=== PATIENT | male | born 1925 | race Caucasian/White ===

== ENCOUNTER 2016-04-04 09:08 | Inpatient (IN) | payer OTHER, MEDICARE ==
[~2016-04-04] VITALS: Ht 177.8 cm; Wt 65.8 kg
[~2016-04-04 09:08] MED LIST: AGRYLIN0.5 MG PO; ASPIR 8181 MG PO; ATORVASTATIN CA40 MG PO; ATORVASTATIN CA80 MG PO; AVODART0.5 MG PO; BABY ASPIRIN CH81 MG PO; CIPRO500 M1 PO; CLOPIDOGREL75 MG PO; COUMADIN 2.5 M2.5 MG PO; COUMADIN 3 MG TA3 MG PO; EXELON1 EAC1 TOP; FELODIPINE10 MG PO; FERROUS SULFAT325 M3 PO; FLOMAX(MONOGRA0.4 MG PO; KEFLEX500 MG PO; LOPRESSOR 12.12.5 MG PO; LOPRESSOR 25MG25 MG PO; LOPRESSOR50 M1 PO; LOPRESSOR50 MG PO; NORVASC 5MG TAB5 MG PO; NORVASC5 M1 PO; PERCOCET 325 MG1 TA2 PO; PLAVIX 75MG TAB75 MG PO; TYLENOL WITH C1 EACH PO; ULTRAM(MONOGRAP50 MG PO; ZETIA10 MG PO
--- NOTE | 2016-04-04 09:12 | NUR ---
PT SHLOMO FROM HOME AFTER FOUND HIM ON THE FLOOR. PT ARRIVES OFFERS NO COMPLAINTS. PT INCONTINENT OF LARGE AMOUNT OF STOOL. [facility] CARE PROVIDED. PT HAS INDWELLING CATH THAT IS DRAINING GROSS HEMATURIA PER EMS VISITING NURSE TOLD THEM SHE CHANGED IT AND "MUST HAVE NICKED SOMETHING". PT OFFERS NO COMPLAINTS. ROM TO ALL LIMBS WITHOUT PAIN. PT IS A/O AT THIS TIME. PT APOLOGIZING FOR BEING INCONTINENT. VSS
--- NOTE | 2016-04-04 09:22 | ED GENERAL ADULT ---
History of Present Illness General Chief Complaint: Fall Stated Complaint: FALL Source: patient, old records, EMS Exam Limitations: dementia Vital Signs & Intake/Output Vital Signs & Intake/Output Vital Signs Date Time Temp Pulse Resp B/P Pulse O2 O2 Flow FiO2 Ox Delivery Rate 04/04 0813 93 04/04 911 99.1 90 18 142/75 93 Room Air Allergies Coded Allergies: NO KNOWN ALLERGIES (02/07/16) Reconcile Medications Amlodipine (Norvasc 5MG Tab) 5 MG TAB 1 TAB PO DAILY BP (Reported) ANAGRELIDE HCL (Anagrelide Hydrochloride) 0.5 MG CAP 1 CAP PO BID UNKNOWN ( Reported) Aspirin (Children's Aspirin) 81 MG TAB 1 TAB PO DAILY BLOOD THINNER Atorvastatin Calcium (Lipitor) 80 MG TAB 1 TAB PO DAILY CHOLESTEROL Dutasteride (Avodart) 0.5 MG CAP 0.5 MG PO DAILY BPH Ferrous Sulfate 325 MG TAB 1 TAB PO TID SUPPLEMENT (Reported) Metoprolol Tartrate (Lopressor) 50 MG TAB 1 TAB PO BID HEART (Reported) Rivastigmine (Exelon) 9.5 MG/24 HR PAT 1 PAT TOP DAILY DEMENTIA (Reported) Tamsulosin Hydrochloride (Flomax) 0.4 MG CAP 0.4 MG PO DAILY BPH Triage Note: PT BIBA FROM HOME AFTER FOUND HIM ON THE FLOOR. PT ARRIVES OFFERS NO COMPLAINTS. PT INCONTINENT OF LARGE AMOUNT OF STOOL. [facility] PROVIDED. PT HAS INDWELLING CATH THAT IS DRAINING GROSS HEMATURIA PER EMS VISITING NURSE TOLD THEM SHE CHANGED IT AND "MUST HAVE NICKED SOMETHING". PT OFFERS NO COMPLAINTS. ROM TO ALL LIMBS WITHOUT PAIN. PT IS A/O AT THIS TIME. PT APOLOGIZING FOR BEING INCONTINENT. VSS Triage Nurses Notes Reviewed? yes HPI: Patient has a history of dementia and is unable to provide any history of present illness. Patient was found on the floor by his this morning in the hallway leading towards the bathroom. Patient was incontinent of a large amount of stool. Patient has no current complaints however was sent in for evaluation. Patient denies any headache or blurry vision. Patient is moving all 4 extremities without difficulty. states that she saw him in bed at 6 AM so she knows that he was on the floor for a prolonged period time. Past History Travel History Traveled to [place] past 21 day No Medical History Any Pertinent Medical History? see below for history Neurological: dementia EENT: R ear deafness post-operatively Cardiovascular: hypertension, hyperlipidemia, mitral regurgitation Respiratory: NONE Gastrointestinal: NONE Hepatic: NONE Renal: benign prost hyperplasia, LEG BAG, PT UNSURE WHY Musculoskeletal: FEMORAL ARTHROPLASTY Psychiatric: NONE Endocrine: NONE Blood Disorders: NONE Cancer(s): ORAL CANCER INK PRINTER/Reproductive: NONE Other Medical Hx: Benign prostatic hypertrophy History of MRSA: No History of VRE: Yes History of CDIFF: No Pneumonia Vaccine: 12/13/13 Influenza Vaccine: 12/14/15 Surgical History Surgical History: coronary angioplasty/stent details not available Psychosocial History Who do you live with Spouse Services at Home Nursing What is your primary language Dominican Tobacco Use: Never used ETOH Use: denies use Illicit Drug Use: denies illicit drug use Family History Family History, If Any: FATHER ( around age 44 -- rectal CA). MOTHER (unknown heart condition). Hx Contributory? No Review of Systems Review of Systems Constitutional: Reports: see HPI. Physical Exam Physical Exam General Appearance: well developed/nourished, alert, awake, mild distress Head: atraumatic, normal appearance Eyes: Bilateral: PERRL, EOMI. Ears, Nose, Throat: normal pharynx, normal ENT inspection, hearing grossly normal Neck: normal inspection, supple, full range of motion, NO JVD Respiratory: normal breath sounds, chest non-tender, no respiratory distress, lungs clear Cardiovascular: regular rate/rhythm, normal peripheral pulses Gastrointestinal: normal bowel sounds, soft, non-tender, no organomegaly Back: normal inspection, normal range of motion Extremities: normal inspection, normal capillary refill, normal range of motion, no edema Neurologic/Psych: A&O X 1 Skin: intact, normal color, warm/dry Core Measures ACS in differential dx? Yes ASA ordered for poss ACS? Yes-ordered CVA/TIA Diagnosis: No Severe Sepsis Present: No Septic Shock Present: No Progress Differential Diagnoses I considered the following diagnoses in my evaluation of the patient: [ICH, cervical fracture, head injury, electrolyte abnormality, pneumonia, CHF] Plan of Care: Orders Procedure Date/time Status TROPONIN LEVEL 04/04 1700 Active EKG 04/04 1700 Active LACTIC ACID 04/04 1402 Active Patient Data 04/04 1130 Active Add-on Test (ER Only) 04/04 1124 Active Straight Cath 04/04 1102 Active BLOOD CULTURE 04/04 1102 Active URINALYSIS 04/04 1102 Active LACTIC ACID 04/04 1102 Active CREATINE PHOSPHOKINASE 04/04 1014 Complete Telemetry/Service Engine Repairer 04/04 1013 Active TROPONIN LEVEL 04/04 1013 Complete COMPREHENSIVE METABOLIC PANEL 04/04 1013 Complete CBC WITHOUT DIFFERENTIAL 04/04 1013 Complete B-TYPE NATRIURETIC PEP (BNP) 04/04 1013 Complete EKG 04/04 1013 Active Laboratory Tests 04/04/16 1120: Lactic Acid Pending 04/04/16 1014: Anion Gap 11, Estimated GFR > 60, BUN/Creatinine Ratio 21.1, Glucose 122 H, Calcium 9.5, Total Bilirubin 1.0, AST 29, ALT 31, Alkaline Phosphatase 121, Creatine Kinase 38 L, Troponin I 0.19 *H, Law-P-Zembkmeqlus Pept 55947 H, Total Protein 6.2 L, Albumin 3.9, Globulin 2.3, Albumin/Globulin Ratio 1.7, CBC w Diff MAN DIFF ORDERED, RBC 4.43 L, MCV 95.2 H, MCH 31.5 H, RDW 18.2 H, MPV 8.4, Gran % 96.9 H, Lymphocytes % 1.3 L, Monocytes % 1.5 L, Eosinophils % 0.3 , Basophils % 0 L, Absolute Granulocytes 30.0 H, Segmented Neutrophils 83 H, Band Neutrophils 10 H, Absolute Lymphocytes 0.4 L, Lymphocytes 2 L, Monocytes 5, Absolute Monocytes 0.5, Absolute Eosinophils 0.1, Absolute Basophils 0, Poikilocytosis 2+, Anisocytosis 2+, Ovalocytes 1+, PUBS MCHC 33.1 Microbiology 04/04 1120 BLOOD: Blood Culture - RECD 04/04 1102 BLOOD: Blood Culture - ORD Diagnostic Imaging: Viewed by Me: CT Scan. Discussed w/RAD: CT Scan. Radiology Impression: PATIENT: MARILYN PERRY PRESENT AGE: 89 PATIENT ACCOUNT NO: [id number] : [birth year] LOCATION: [facility] ORDERING PHYSICIAN: NOEMI PETTY MD SERVICE DATE: 04/04/16 EXAM TYPE: CAT - CT CERV SPINE WO IV CONTRAST; CT HEAD WO IV CONTRAST EXAMINATION: CT OF THE HEAD WITHOUT CONTRAST CT SCAN OF THE CERVICAL SPINE WITHOUT CONTRAST CLINICAL INFORMATION: Fall. Presumptive diagnosis of intracranial hemorrhage. Evaluate for cervical spine fracture.. COMPARISON: CT scan of the head dated 12/23/2014. TECHNIQUE: Contiguous axial imaging was performed from the skull base to vertex without intravenous administration of contrast. DLP: 900.99 mGy-cm. FINDINGS: CT SCAN OF THE HEAD: There is no evidence of acute intracranial hemorrhage or territorial infarction. No abnormal mass-effect or midline shift is seen. Liu to white matter differentiation is well preserved. No extra-axial fluid collections are identified. The ventricles and sulci are mildly enlarged, similar to the previous exam, consistent with age-related involutional changes. Prominent periventricular deep white matter low-attenuation is seen, consistent with ischemic small vessel disease. Calcification of the vertebrobasilar arteries and the carotid siphons are noted. The osseous structures and soft tissues are normal. Again seen is patchy opacification of some of the right mastoid air cells. The left mastoid air cells and visualized portions of the paranasal sinuses are well-aerated. The patient is status post bilateral ocular lens extractions and menstrual placements. CT SCAN OF THE CERVICAL SPINE: Normal alignment of the cervical spine is seen with no evidence of acute fracture or dislocation. The craniocervical junction and atlantoaxial articulations are maintained. No abnormal prevertebral soft tissue swelling is seen. There is moderate degenerative change present throughout the cervical spine, involving the atlantoaxial articulation and the C3-C4 through C6-C7 intervertebral disc spaces. Soft tissues including lung apices are unremarkable. IMPRESSION: 1. No acute intracranial pathology. 2. No acute cervical spine fracture. 3. Mild involutional changes in the brain with findings of ischemic small vessel disease in the periventricular deep white matter. Findings are unchanged from prior exam. 4. Partial opacification of right mastoid air cells. 5. Multilevel moderate degenerative changes in the cervical spine. DICTATED BY: MOUNA RIVAS MD DATE/TIME DICTATED:04/04/161003 C.O.D. BILLER:RONALDO DATE/ TIME TRANSCRIBED:04/04/161003 CONFIDENTIAL, DO NOT COPY WITHOUT APPROPRIATE AUTHORIZATION. <Electronically signed in Other Vendor System> SIGNED BY: MOUNA RIVAS MD 04/04/16 1022 CXR Impression: PATIENT: MARILYN PERRY PRESENT AGE: 89 PATIENT ACCOUNT NO: [id number] : [birth year] LOCATION: [facility] ORDERING PHYSICIAN: NOEMI PETTY MD SERVICE DATE: 04/04/16 EXAM TYPE: RAD - XRY- PORTABLE CHEST XRAY EXAMINATION: XR PORTABLE CHEST CLINICAL INFORMATION: Hypoxia. Fall. COMPARISON: Chest x-ray dated 12/22/2014, 11/16/2014. TECHNIQUE: AP semierect portable view of the chest was obtained. FINDINGS: Cardiac mediastinal silhouette normal. Calcification of aortic arch seen. Lungs bilaterally hyperinflated with coarsening of bronchovascular lung markings, similar to prior exam. Chronic linear opacities in the lung bases is seen, consistent with chronic subsegmental atelectasis or scarring. Bony structures unremarkable. IMPRESSION: Hyperinflated lungs with chronic bibasilar subsegmental atelectasis or scarring. No acute cardiopulmonary process seen. DICTATED BY: MOUNA RIVAS MD DATE/TIME DICTATED:04/04/161033 C.O.D. BILLER:RONALDO DATE/TIME TRANSCRIBED:04/04/161033 CONFIDENTIAL, DO NOT COPY WITHOUT APPROPRIATE AUTHORIZATION. <Electronically signed in Other Vendor System> SIGNED BY: MOUNA RIVAS MD 04/04/16 1044 Initial ED EKG: NSR, nonspecific ST T wave chg Prior EKG: unchanged Rhythm Strip: normal sinus rhythm Comments: Patient found to be hypoxic with a room air saturation of 86-88% with no history of hypoxia. Patient is not on oxygen at home. Departure Departure Disposition: STILL A PATIENT Condition: Stable Clinical Impression Primary Impression: Leukocytosis Secondary Impressions: Elevated troponin Referrals: DANIEL OSORIO MD (PCP/Family) Departure Forms: Customer Survey General Discharge Information Admission Note Spoke With: PADMINI METZGER MD Documentation of Exam: Documentation of any treatments & extenuating circumstances including Concerns Regarding Discharge (functional status, medication knowledge or non-compliance, living conditions, etc.) that warrant an admission rather than observation: [IV fluids, cardiology consult, follow-up cultures, telemetry monitoring,] Critical Care Note Critical Care Note Critical Care Time: mins: (45 MIN)
--- NOTE | 2016-04-04 09:29 | NUR ---
PT TO CT SCAN
--- NOTE | 2016-04-04 10:22 | CT SCAN REPORT ---
EXAMINATION: CT OF THE HEAD WITHOUT CONTRAST CT SCAN OF THE CERVICAL SPINE WITHOUT CONTRAST CLINICAL INFORMATION: Fall. Presumptive diagnosis of intracranial hemorrhage. Evaluate for cervical spine fracture.. COMPARISON: CT scan of the head dated 12/23/2014. TECHNIQUE: Contiguous axial imaging was performed from the skull base to vertex without intravenous administration of contrast. DLP: 900.99 mGy-cm. FINDINGS: CT SCAN OF THE HEAD: There is no evidence of acute intracranial hemorrhage or territorial infarction. No abnormal mass-effect or midline shift is seen. Liu to white matter differentiation is well preserved. No extra-axial fluid collections are identified. The ventricles and sulci are mildly enlarged, similar to the previous exam, consistent with age-related involutional changes. Prominent periventricular deep white matter low-attenuation is seen, consistent with ischemic small vessel disease. Calcification of the vertebrobasilar arteries and the carotid siphons are noted. The osseous structures and soft tissues are normal. Again seen is patchy opacification of some of the right mastoid air cells. The left mastoid air cells and visualized portions of the paranasal sinuses are well-aerated. The patient is status post bilateral ocular lens extractions and menstrual placements. CT SCAN OF THE CERVICAL SPINE: Normal alignment of the cervical spine is seen with no evidence of acute fracture or dislocation. The craniocervical junction and atlantoaxial articulations are maintained. No abnormal prevertebral soft tissue swelling is seen. There is moderate degenerative change present throughout the cervical spine, involving the atlantoaxial articulation and the C3-C4 through C6-C7 intervertebral disc spaces. Soft tissues including lung apices are unremarkable. IMPRESSION: 1. No acute intracranial pathology. 2. No acute cervical spine fracture. 3. Mild involutional changes in the brain with findings of ischemic small vessel disease in the periventricular deep white matter. Findings are unchanged from prior exam. 4. Partial opacification of right mastoid air cells. 5. Multilevel moderate degenerative changes in the cervical spine.
[2016-04-04 10:30] LABS: ABSOLUTE BASOPHIL COUNT 0 /CUMM (0.0-0.2); ABSOLUTE EOSINOPHIL COUNT 0.1 /CUMM (0.0-0.7); ABSOLUTE LYMPH COUNT 0.4 /CUMM (1.2-3.4); ABSOLUTE MONOCYTE COUNT 0.5 /CUMM (0.10-0.60); BASOPHIL % 0 % (0.0-2.0); EOSINOPHIL % 0.3 % (0-5); GRANULOCYTE % 96.9 % (42.2-75.2); HEMATOCRIT 42.2 % (42-52); MEAN CORPUSCULAR HGB 31.5 PG (27.0-31.0); MEAN CORPUSCULAR HGB CONC 33.1 G/DL (33.0-37.0); MEAN CORPUSCULAR VOLUME 95.2 FL (80.0-94.0); MEAN PLATELET VOLUME 8.4 FL (7.4-10.4); PLATELET COUNT 576 /CUMM (130-400); RBC DISTRIBUTION WIDTH 18.2 % (11.5-14.5); RED BLOOD CELL CT 4.43 /CUMM (4.70-6.10)
--- NOTE | 2016-04-04 10:44 | RADIOLOGY REPORT ---
EXAMINATION: XR PORTABLE CHEST CLINICAL INFORMATION: Hypoxia. Fall. COMPARISON: Chest x-ray dated 12/22/2014, 11/16/2014. TECHNIQUE: AP semierect portable view of the chest was obtained. FINDINGS: Cardiac mediastinal silhouette normal. Calcification of aortic arch seen. Lungs bilaterally hyperinflated with coarsening of bronchovascular lung markings, similar to prior exam. Chronic linear opacities in the lung bases is seen, consistent with chronic subsegmental atelectasis or scarring. Bony structures unremarkable. IMPRESSION: Hyperinflated lungs with chronic bibasilar subsegmental atelectasis or scarring. No acute cardiopulmonary process seen.
--- NOTE | 2016-04-04 10:49 | NUR ---
CRITICAL TEST RESULTS [id number] MARILYN PERRY 89 M TESTS AND RESULTS: WBC 31.0 Results received and read back by: NATALIE ULRICH Results received date and time: 04/04/16 1049 The following provider was notified of the results, and read the results back: LUIS PETTY Notified date and time: 04/04/16 at 1049
--- NOTE | 2016-04-04 10:59 | NUR ---
CRITICAL TEST RESULTS [id number] MARILYN PERRY 89 M TESTS AND RESULTS: TROPONIN 0.19 Results received and read back by: NATALIE ULRICH Results received date and time: 04/04/16 1059 The following provider was notified of the results, and read the results back: DR PETTY Notified date and time: 04/04/16 at 1052
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
--- NOTE | 2016-04-04 11:53 | NUR ---
PT LEG BAG FILLED WITH GROSS HEMATURIA PT BLADDER DISTENDED ABD PAINFULL TO PALPATE CARVALHO REMOVED LARGE AMOUNT OF BLOOD WITH CLOTS FROLLOWED CARVALHO REPLACED WITH COUDE CLOUDY YELLOW URINE 500ML IN BAG NO BLOOD NOTED. PT CONT. TO HAVE BLOOD COMING FROM THE TIP OF HIS PENIS MD MADE AWARE. URINE SPEC. SENT TO LAB
--- NOTE | 2016-04-04 12:38 | NUR ---
PT IS GOING TO ROOM 171
--- NOTE | 2016-04-04 13:09 | NUR ---
SPOUSE IN, TOOK PT'S BELONGING BACK HOME TO WASH
[2016-04-04 13:51] VITALS: BP 118/62
--- NOTE | 2016-04-04 14:00 | NUR ---
PATIENT ARRIVED ON UNIT VIA STRETCHER. PATIENT ALERT AND ORIENTATED X2. PLEASANTLY CONFUSED. VSS AND DOCUMENTED. PLACED ON TELE MONITOR. NSR. NO ECTOPY. DENIES CP. O2 VIA NC 2L. NO RESP ISSUES. NS AT 75CC STARTED. CARVALHO TO GRAVITY. SMALL AMOUNT OF TEA COLOR URINE NOTED IN DRAINAGE BAG. STEVE BLOOD AROUND MEATUS. PATIENT DENIES DISCOMFORT. ADMITTING DX POS TROPONIN/SYNCOPE. ORIENTATED TO ROOM AND CALL LIGHT. WILL FOLLOW PLAN OF CARE.
--- NOTE | 2016-04-04 14:29 | Cons- Cardiology ---
General Information and HPI Consulting Request Date of Consult: 04/04/16 Requested By: PADMINI METZGER MD Reason for Consult: Elevated troponin post mechanical fall Source of Information: old records Exam Limitations: dementia History of Present Illness: The patient is an 89-year-old male who is admitted to the hospital after being brought into the emergency room by ambulance after his found him on the floor at home. No functional history is available from the patient, however, he offers no obvious complaints. At the time of being found, he was noted to have been incontinent of a large moderate stool. He also has an indwelling catheter with evidence of gross hematuria noted. As far as I can tell, there was no evidence of any gross neurologic event. There was also no evidence of any chest discomfort, shortness of breath, or other issues from a cardiac standpoint at the time the patient was initially seen or in the emergency room. Allergies/Medications Allergies: Coded Allergies: NO KNOWN ALLERGIES (02/07/16) Home Med List: Amlodipine (Norvasc 5MG Tab) 5 MG TAB 1 TAB PO DAILY BP (Reported) ANAGRELIDE HCL (Anagrelide Hydrochloride) 0.5 MG CAP 1 CAP PO BID UNKNOWN ( Reported) Aspirin (Children's Aspirin) 81 MG TAB 1 TAB PO DAILY BLOOD THINNER Atorvastatin Calcium (Lipitor) 80 MG TAB 1 TAB PO DAILY CHOLESTEROL Dutasteride (Avodart) 0.5 MG CAP 0.5 MG PO DAILY BPH Ferrous Sulfate 325 MG TAB 1 TAB PO TID SUPPLEMENT (Reported) Metoprolol Tartrate (Lopressor) 50 MG TAB 1 TAB PO BID HEART (Reported) Rivastigmine (Exelon) 9.5 MG/24 HR PAT 1 PAT TOP DAILY DEMENTIA (Reported) Tamsulosin Hydrochloride (Flomax) 0.4 MG CAP 0.4 MG PO DAILY BPH Current Medications: Current Medications Sig/Tatyana Start time Last Medication Dose Route Stop Time Status Admin Amlodipine Besylate 5 MG DAILY 04/05 1000 AC PO Aspirin 325 MG ONCE ONE 04/05 1000 AC PO 04/05 1001 Aspirin 0 .STK-MED ONE 04/04 1153 DC PO Aspirin 325 MG ONCE ONE 04/04 1100 DC 04/04 PO 04/04 1101 1105 Atorvastatin Calcium 80 MG 1700 04/04 1700 AC PO Ceftriaxone Sodium 1,000 MG Q24H 04/04 1400 AC IV Ferrous Sulfate 325 MG TID 04/04 1600 AC PO Heparin Sodium 5,000 UNIT Q8 04/04 1400 AC 04/04 (Porcine) SC 1412 Metoprolol Tartrate 50 MG BID 04/04 2200 AC PO Multivitamins 1 TAB DAILY 04/04 1247 AC PO Rivastigmine 9.5 MG DAILY 04/05 1000 AC TOP Sodium Chloride 1,000 ML .[id number] 04/04 1245 AC 04/04 IV 1411 Tamsulosin HCl 0.4 MG DAILY 04/05 1000 AC PO Past History Travel History Traveled to [place] past 21 day No Medical History Neurological: dementia EENT: R ear deafness post-operatively Cardiovascular: hypertension, hyperlipidemia, mitral regurgitation Respiratory: NONE Gastrointestinal: NONE Hepatic: NONE Renal: benign prost hyperplasia, LEG BAG, PT UNSURE WHY Musculoskeletal: FEMORAL ARTHROPLASTY Psychiatric: NONE Endocrine: NONE Blood Disorders: NONE Cancer(s): ORAL CANCER BUILDINGS AND GROUNDS DIRECTOR/Reproductive: NONE Other Medical Hx: Benign prostatic hypertrophy Surgical History Surgical History: coronary angioplasty/stent details not available Family History Relations & Conditions If Any: FATHER ( around age 44 -- rectal CA). MOTHER (unknown heart condition). Psychosocial History Where Do You Live? Home Who Do You Live With? spouse Services at Home: Nursing Primary Language: Irish Smoking Status: Former Smoker ETOH Use: denies use Illicit Drug Use: denies illicit drug use Functional Ability ADLs Independent: dressing, eating, toileting, bathing. Ambulation: cane, walker IADLs Independent: shopping, housework, finances, food prep, telephone, transportation , medication admin. ECHO Results (as available) Date of last Echo 12/24/14 EF% 55 Report: CONCLUSIONS Technically difficult study. Left ventricular cavity size normal. Normal left ventricular wall thickness. Mild inferior/inferolateral wall hypokinesis. Left ventricular ejection fraction is estimated at 50-55 %. Normal right ventricular size and function. Probably mild aortic stenosis. Aortic valve gradients were not assessed on this study. [id number] tricuspid regurgitation. Right ventricular systolic pressure estimated to be elevated at 45 mmHg. Exam & Diagnostic Data Vital Signs and I&O Vital Signs Date Time Temp Pulse Resp B/P Pulse O2 O2 Flow FiO2 Ox Delivery Rate 04/04 1351 98.2 79 20 118/62 96 Nasal 2.0L Cannula 04/04 1339 95 Nasal 2.0L Cannula 04/04 1214 100.4 76 20 124/73 95 Nasal 2.0L Cannula 04/04 0913 93 04/04 0912 99.1 90 18 142/75 93 Room Air Intake & Output 04/04 1600 04/04 0800 04/04 0000 04/03 1600 04/03 0800 04/03 0000 Intake Total 0 Output Total 700 Balance -700 Intake, Oral 0 Output, Urine 700 Patient 150 lb Weight Physical Exam: General Appearance: well developed/nourished, alert, awake, mild distress, confused Head: Normal Eyes: Normal. Ears, Nose, Throat: normal pharynx, normal ENT inspection, hearing grossly normal Neck: normal inspection, supple, full range of motion, JVP normal, carotids normal bilaterally Respiratory: Clear bilaterally to auscultation and percussion Cardiovascular: Regular S1, S2, 2/6 systolic murmur left lower sternal border Gastrointestinal: normal bowel sounds, soft, non-tender, no organomegaly Extremities: normal inspection, normal capillary refill, normal range of motion, no edema Neurologic: Nonfocal Skin: Normal Labs/Gurpreet Results: Laboratory Tests 04/04 04/04 1150 1120 Chemistry Lactic Acid (0.7 - 2.1 mmol/L) 1.5 Urines Urinalysis LIGHT H Urine Color (YEL,AMB,STR) YEL Urine Clarity (CLEAR) HAZY H Urine pH (5.0 - 8.0) 6.5 Ur Specific [place] (1.001 - 1.035) 1.020 Urine Protein (NEG,<30 MG/DL) TRACE H Urine Ketones (NEG) NEG Urine Nitrite (NEG) NEG Urine Bilirubin (NEG) NEG Urine Urobilinogen (0.1 - 1.0 EU/dl) 0.2 Ur Leukocyte Esterase (NEG) SMALL H Ur Microscopic SEDIMENT EXAMINED Urine RBC (0 - 5 /HPF) >75 H Urine WBC (0 - 2 /HPF) 25-50 H Urine Hemoglobin (NEG) LARGE H Urine Glucose (N MG/DL) NEG 04/04 1014 Chemistry Sodium (137 - 145 mmol/L) 140 Potassium (3.5 - 5.1 mmol/L) 3.8 Chloride (98 - 107 mmol/L) 102 Carbon Dioxide (22 - 30 mmol/L) 27 Anion Gap (5 - 16) 11 BUN (9 - 20 mg/dL) 19 Creatinine (0.7 - 1.2 mg/dL) 0.9 Estimated GFR (>60 ml/min) > 60 BUN/Creatinine Ratio (7 - 25 %) 21.1 Glucose (65 - 99 mg/dL) 122 H Calcium (8.4 - 10.2 mg/dL) 9.5 Total Bilirubin (0.2 - 1.3 mg/dL) 1.0 AST (17 - 59 U/L) 29 ALT (21 - 72 U/L) 31 Alkaline Phosphatase (< 127 U/L) 121 Creatine Kinase (55 - 170 U/L) 38 L Troponin I (<0.11 ng/ml) 0.19 *H [id number]-Adwerqwixvj Pept (<125 pg/mL) 24346 H Total Protein (6.3 - 8.2 g/dL) 6.2 L Albumin (3.5 - 5.0 g/dL) 3.9 Globulin (1.9 - 4.2 gm/dL) 2.3 Albumin/Globulin Ratio (1.1 - 2.2 %) 1.7 Hematology CBC w Diff MAN DIFF ORDERED WBC (4.8 - 10.8 /CUMM) 31.0 *H RBC (4.70 - 6.10 /CUMM) 4.43 L Hgb (14.0 - 18.0 G/DL) 13.9 L Hct (42 - 52 %) 42.2 MCV (80.0 - 94.0 FL) 95.2 H MCH (27.0 - 31.0 PG) 31.5 H RDW (11.5 - 14.5 %) 18.2 H Plt Count (130 - 400 /CUMM) 576 H MPV (7.4 - 10.4 FL) 8.4 Gran % (42.2 - 75.2 %) 96.9 H Lymphocytes % (20.5 - 51.1 %) 1.3 L Monocytes % (1.7 - 9.3 %) 1.5 L Eosinophils % (0 - 5 %) 0.3 Basophils % (0.0 - 2.0 %) 0 L Absolute Granulocytes (1.4 - 6.5 /CUMM) 30.0 H Segmented Neutrophils (42.2 - 75.2 %) 83 H Band Neutrophils (0.0 - 5.0 %) 10 H Absolute Lymphocytes (1.2 - 3.4 /CUMM) 0.4 L Lymphocytes (20.5 - 51.1 %) 2 L Monocytes (1.7 - 9.3 %) 5 Absolute Monocytes (0.10 - 0.60 /CUMM) 0.5 Absolute Eosinophils (0.0 - 0.7 /CUMM) 0.1 Absolute Basophils (0.0 - 0.2 /CUMM) 0 Poikilocytosis 2+ Anisocytosis 2+ Ovalocytes 1+ PUBS MCHC (33.0 - 37.0 G/DL) 33.1 Diagnostic Data CXR Results FINDINGS: Cardiac mediastinal silhouette normal. Calcification of aortic arch seen. Lungs bilaterally hyperinflated with coarsening of bronchovascular lung markings, similar to prior exam. Chronic linear opacities in the lung bases is seen, consistent with chronic subsegmental atelectasis or scarring. Bony structures unremarkable. IMPRESSION: Hyperinflated lungs with chronic bibasilar subsegmental atelectasis or scarring. No acute cardiopulmonary process seen. Other Results Head CT: IMPRESSION: 1. No acute intracranial pathology. 2. No acute cervical spine fracture. 3. Mild involutional changes in the brain with findings of ischemic small vessel disease in the periventricular deep white matter. Findings are unchanged from prior exam. 4. Partial opacification of right mastoid air cells. 5. Multilevel moderate degenerative changes in the cervical spin Assessment/Plan Assessment/Plan Assessment: 1. Elevated troponin-the patient's initial troponin is elevated at 0.19. ECG shows nonspecific changes. I doubt any acute coronary event, however, the patient will require serial ECGs, serial troponins, etc. 2. Mechanical fall; cannot exclude syncope 3. Markedly elevated white count with abnormal urinalysis; possible urinary tract infection 4. Elevated proBNP 5. History of mitral insufficiency, tricuspid insufficiency, and mild aortic stenosis 6. Hypertension 7. Hyperlipidemia 8. Urologic issues with indwelling Rothman 9. Dementia Recommendations: -The patient should be kept on telemetry monitoring for now -Serial troponins until decreasing -ECG later today and again in the morning -Echocardiogram to reassess severity of valvular disease and assess left ventricular function and regional wall motion and right ventricular systolic pressure -Continue antibiotics pending final culture results Consult Acknowledgment - Thank you for your consult request.
--- NOTE | 2016-04-04 15:25 | Admission Certification ---
Admission Certification Certification Statement - As attending physician, I certify that at the time of - admission, based on clinical presentation, severity of - symptoms, need for further diagnostic testing and - therapeutic interventions, and risk of adverse outcomes - without in-hospital treatment, in my clinical assessment, - this patient requires an acute hospital stay for a minimum - of two nights or longer. I have also considered psychsocial - factors such as support system, advanced age, financial - issues, cognitive issues, and failed out-patient treatments, - past re-admission history, safety of patient, and lack of - compliance as applicable. Specific rationale supporting this admission is: Mechanical fall, elevated troponin, syncopal episode, traumatic hematuria after Rothman change possible UTI and/or sepsis of urological origin.
--- NOTE | 2016-04-04 15:30 | PN- Att Addend ---
Attending Addendum Attending Brief Note Covering attending note: 89-year-old white male poor historian. According to his she saw him last in bed around 6 AM later on in the morning she found him on the floor incontinent of stools and the Rothman catheter showing some hematuria brought into the emergency room patient had CAT scans of the head chest x-ray the with some nonspecific ST-T abnormalities was found to have a slightly elevated troponin and for that reason a cardiology consult was requested. Patient has an indwelling Rothman catheter and the visiting nurse changed the catheter yesterday was a little traumatic with evidence of some hematuria. Patient denies any chest pain no shortness of breath. Has a low-grade temp. Is were obtained will start antibiotic therapy and monitor closely. Laboratory Tests 04/04 04/04 1150 1120 Chemistry Lactic Acid (0.7 - 2.1 mmol/L) 1.5 Urines Urinalysis LIGHT H Urine Color (YEL,AMB,STR) YEL Urine Clarity (CLEAR) HAZY H Urine pH (5.0 - 8.0) 6.5 Ur Specific [place] (1.001 - 1.035) 1.020 Urine Protein (NEG,<30 MG/DL) TRACE H Urine Ketones (NEG) NEG Urine Nitrite (NEG) NEG Urine Bilirubin (NEG) NEG Urine Urobilinogen (0.1 - 1.0 EU/dl) 0.2 Ur Leukocyte Esterase (NEG) SMALL H Ur Microscopic SEDIMENT EXAMINED Urine RBC (0 - 5 /HPF) >75 H Urine WBC (0 - 2 /HPF) 25-50 H Urine Hemoglobin (NEG) LARGE H Urine Glucose (N MG/DL) NEG 04/04 1014 Chemistry Sodium (137 - 145 mmol/L) 140 Potassium (3.5 - 5.1 mmol/L) 3.8 Chloride (98 - 107 mmol/L) 102 Carbon Dioxide (22 - 30 mmol/L) 27 Anion Gap (5 - 16) 11 BUN (9 - 20 mg/dL) 19 Creatinine (0.7 - 1.2 mg/dL) 0.9 Estimated GFR (>60 ml/min) > 60 BUN/Creatinine Ratio (7 - 25 %) 21.1 Glucose (65 - 99 mg/dL) 122 H Calcium (8.4 - 10.2 mg/dL) 9.5 Total Bilirubin (0.2 - 1.3 mg/dL) 1.0 AST (17 - 59 U/L) 29 ALT (21 - 72 U/L) 31 Alkaline Phosphatase (< 127 U/L) 121 Creatine Kinase (55 - 170 U/L) 38 L Troponin I (<0.11 ng/ml) 0.19 *H [id number]-G-Dauuajntegi Pept (<125 pg/mL) 91379 H Total Protein (6.3 - 8.2 g/dL) 6.2 L Albumin (3.5 - 5.0 g/dL) 3.9 Globulin (1.9 - 4.2 gm/dL) 2.3 Albumin/Globulin Ratio (1.1 - 2.2 %) 1.7 Hematology CBC w Diff MAN DIFF ORDERED WBC (4.8 - 10.8 /CUMM) 31.0 *H RBC (4.70 - 6.10 /CUMM) 4.43 L Hgb (14.0 - 18.0 G/DL) 13.9 L Hct (42 - 52 %) 42.2 MCV (80.0 - 94.0 FL) 95.2 H MCH (27.0 - 31.0 PG) 31.5 H RDW (11.5 - 14.5 %) 18.2 H Plt Count (130 - 400 /CUMM) 576 H MPV (7.4 - 10.4 FL) 8.4 Gran % (42.2 - 75.2 %) 96.9 H Lymphocytes % (20.5 - 51.1 %) 1.3 L Monocytes % (1.7 - 9.3 %) 1.5 L Eosinophils % (0 - 5 %) 0.3 Basophils % (0.0 - 2.0 %) 0 L Absolute Granulocytes (1.4 - 6.5 /CUMM) 30.0 H Segmented Neutrophils (42.2 - 75.2 %) 83 H Band Neutrophils (0.0 - 5.0 %) 10 H Absolute Lymphocytes (1.2 - 3.4 /CUMM) 0.4 L Lymphocytes (20.5 - 51.1 %) 2 L Monocytes (1.7 - 9.3 %) 5 Absolute Monocytes (0.10 - 0.60 /CUMM) 0.5 Absolute Eosinophils (0.0 - 0.7 /CUMM) 0.1 Absolute Basophils (0.0 - 0.2 /CUMM) 0 Poikilocytosis 2+ Anisocytosis 2+ Ovalocytes 1+ PUBS MCHC (33.0 - 37.0 G/DL) 33.1 His white count was elevated.
[2016-04-04 15:35] VITALS: BP 140/70
[2016-04-04 17:13] LABS: PT 14.8 SEC (9.4-12.5); PTT 41 SEC (25-37)
[2016-04-05 08:00] VITALS: BP 118/58
--- NOTE | 2016-04-05 10:55 | PN- Housestaff ---
Subjective Follow-up For: Sepsis of urinary origin Subjective: Patient was seen and examined this morning. He has no complaints this morning and he has had an uneventful night. He is not in acute distress. On 2L O2 with saturation 96% Review of Systems Constitutional: Denies: see HPI. Objective Last 24 Hrs of Vital Signs/I&O Vital Signs Date Time Temp Pulse Resp B/P Pulse O2 O2 Flow FiO2 Ox Delivery Rate 04/05 1645 98.6 74 18 118/62 99 Nasal Cannula 04/05 0845 96 Nasal 2.0L Cannula 04/05 0800 98.3 69 20 118/58 96 Nasal 2.0L Cannula 04/05 0000 Nasal 2.0L Cannula 04/049 81 136/80 Intake & Output 04/05 1600 04/05 0800 04/05 0000 Intake Total 1200 525 480 Output Total 250 250 300 Balance 950 275 180 Intake, IV 600 525 Intake, Oral 600 480 Output, Urine 250 250 300 Physical Exam General Appearance: Alert, Cooperative, No Acute Distress Skin: No Rashes, No Breakdown, No Significant Lesion Cardiovascular: Regular Rate, Normal S1, Normal S2, No Murmurs Lungs: Clear to Auscultation, Normal Air Movement Abdomen: Normal Bowel Sounds, Soft, No Tenderness Neurological: Normal Speech, Strength at 5/5 X4 Ext, Normal Tone, Sensation Intact, Cranial Nerves 3-12 NL, Reflexes 2+ Extremities: No Clubbing, No Cyanosis, No Edema Assessment/Plan Assessment: Patient is an 89-year-old male with history of hypertension, essential thrombocythemia, hyperlipidemi, non-ST elevation myocardial infarction ( angioplasty/stent in the past), inferior wall ME recently status post cardiac cath in the [facility], oral cancer (s/p 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 Per record he was was soiled with large amount of stool. Vitals and labs as above: Problems: #Sepsis most likely of urologic origin: * On admission, he has leukocytosis, Low grade fever of 100.4 * MAXIMUM TEMPERATURE since admission 98.3 * Continue Ceftriaxone 1g IV. * One set of blood culture came positive for gram-positive cocci in cluster * Urine culture is pending #Positive troponin: * Cardiology consult was obtained with * Troponin 0.47, 0.5, 0.57, next troponin at 5 PM, per cardiology W. Rao Murrell MD continue to trend down troponin * Continue aspirin, lopressor * Will hold on nitroglycerin as the patient was asymptomatic * Echocardiogram is pending #BPH: * Will continue Flomax at home dose and Avodart at home dose. #Hx. of HTN, CAD: * Continue Norvasc as well as metoprolol * Continue ASA 325mg will continue that, will continue Lipitor 80 mg daily. #Essential thrombocythemia * Continue Agrylin 0.5 mg TAB BID * anagrelide 0.5 mg PO twice a day for essential thrombocythemia. #Dementia * Patient has sundowning * We'll start with soft bilateral wrist restrain for unsafe ambulation * Consider small dose of Xanax or haloperidol if the patient continued to be agitated * DVT prophylaxis with subcutaneous Lovenox Pain pathway Full code for now, patient's dose not what DNR/DNI means, she stated that she had a paper from the court with the code status, will ask her to bring it to the hospital. When I asked her if she want us to do every thing to safe his life she stated yes but no feeding tube. Problem List: 1. Essential thrombocytopenia 2. Chronic anemia 3. HTN (hypertension) Pain Ratin Pain Location: n/a Pain Goal: Pain 4 or less Pain Plan: see medication Tomorrow's Labs & Rationales: cbc, cmp
[2016-04-05 11:53] LABS: ABSOLUTE BASOPHIL COUNT 0 /CUMM (0.0-0.2); ABSOLUTE EOSINOPHIL COUNT 0.1 /CUMM (0.0-0.7); ABSOLUTE GRANULOCYTE CT 11.8 /CUMM (1.4-6.5); ABSOLUTE LYMPH COUNT 0.7 /CUMM (1.2-3.4); ABSOLUTE MONOCYTE COUNT 0.4 /CUMM (0.10-0.60); BASOPHIL % 0.3 % (0.0-2.0); EOSINOPHIL % 0.7 % (0-5); GRANULOCYTE % 91.1 % (42.2-75.2); MEAN CORPUSCULAR HGB 31.8 PG (27.0-31.0); MEAN CORPUSCULAR HGB CONC 33.3 G/DL (33.0-37.0); MEAN CORPUSCULAR VOLUME 95.6 FL (80.0-94.0); MEAN PLATELET VOLUME 8.5 FL (7.4-10.4); PLATELET COUNT 430 /CUMM (130-400); RBC DISTRIBUTION WIDTH 18.1 % (11.5-14.5); RED BLOOD CELL CT 3.76 /CUMM (4.70-6.10)
[2016-04-05 12:25] LABS: HEMATOCRIT 35.9 % (42-52)
--- NOTE | 2016-04-05 12:46 | Event Note ---
Event Note Event Note: Rise in troponin noted. No changes on EKG. Patient is asymptomatic at present. Will continue to trend trops (next at [address]). Dr[address] Murrell aware.
--- NOTE | 2016-04-05 14:44 | PN- Cardiology ---
Subjective Subjective: The patient is awake and conversant. He appears less confused today. He denies any symptoms. He denies any chest discomfort. Objective Vital Signs and I&Os Vital Signs Date Time Temp Pulse Resp B/P Pulse O2 O2 Flow FiO2 Ox Delivery Rate 04/05 0845 96 Nasal 2.0L Cannula 04/05 0800 98.3 69 20 118/58 96 Nasal 2.0L Cannula 04/05 0000 Nasal 2.0L Cannula 04/04 2129 81 136/80 04/04 1600 Nasal 2.0L Cannula 04/04 1535 97.8 78 18 140/70 96 Intake & Output 04/05 1600 04/05 0800 04/05 0000 04/04 1600 04/04 0800 04/04 0000 Intake Total 1200 525 480 75 Output Total 250 250 300 700 Balance 950 275 180 -625 Intake, IV 600 525 75 Intake, Oral 600 480 0 Output, Urine 250 250 300 700 Patient 150 lb Weight Physical Exam: General Appearance: well developed/nourished, alert, awake, mild distress, confused Head: Normal Eyes: Normal. Ears, Nose, Throat: normal pharynx, normal ENT inspection, hearing grossly normal Neck: normal inspection, supple, full range of motion, JVP normal, carotids normal bilaterally Respiratory: Clear bilaterally to auscultation and percussion Cardiovascular: Regular S1, S2, 2/6 systolic murmur left lower sternal border Gastrointestinal: normal bowel sounds, soft, non-tender, no organomegaly Extremities: normal inspection, normal capillary refill, normal range of motion, no edema Neurologic: Nonfocal Skin: Normal Current Medications: Current Medications Sig/Tatyana Start time Last Medication Dose Route Stop Time Status Admin Amlodipine Besylate 5 MG DAILY 04/05 1000 AC 04/05 PO 0911 Anagrelide HCl 0.5 MG BID 04/05 1000 AC 04/05 PO 0909 Aspirin 325 MG ONCE ONE 04/05 1000 DC 04/05 PO 04/05 1001 0911 Atorvastatin Calcium 80 MG 1700 04/04 1700 AC 04/04 PO 1730 Ceftriaxone Sodium 1,000 MG Q24H 04/04 1400 AC 04/05 IV 1313 Dutasteride 0.5 MG DAILY@1700 04/05 1700 AC PO Ferrous Sulfate 325 MG TID 04/04 1600 AC 04/05 PO 0907 Heparin Sodium 5,000 UNIT Q8 04/04 1400 AC 04/05 (Porcine) SC 1247 Metoprolol Tartrate 50 MG BID 04/04 2199 AC 04/05 PO 0908 Multivitamins 1 TAB DAILY 04/04 1247 AC 04/05 PO 0907 Potassium Chloride 20 MEQ BID 04/04 1551 DC 04/04 PO 04/04 2200 2128 Rivastigmine 9.5 MG DAILY 04/05 1000 AC 04/05 TOP 0911 Sodium Chloride 1,000 ML .[id number] 04/04 1245 AC 04/05 IV 1247 Tamsulosin HCl 0.4 MG DAILY 04/05 1000 AC 04/05 PO 0907 Results Last 48 Hrs of Labs/Mics: Laboratory Tests 04/05/16 1055: Anion Gap 8, Estimated GFR > 60, BUN/Creatinine Ratio 22.0, Troponin I 0.57 *H, Triglycerides 113, Cholesterol 112, LDL Cholesterol, Calc 46 L, HDL Cholesterol 44, Cholesterol/HDL Ratio 3, CBC w Diff MAN DIFF ORDERED, RBC 3.76 L, MCV 95.6 H, MCH 31.8 H, RDW 18.1 H, MPV 8.5, Gran % 91.1 H, Lymphocytes % 5.1 L, Monocytes % 2.8, Eosinophils % 0.7, Basophils % 0.3, Absolute Granulocytes 11.8 H, Segmented Neutrophils 78 H, Band Neutrophils 12 H, Absolute Lymphocytes 0.7 L, Lymphocytes 6 L, Monocytes 2, Absolute Monocytes 0.4, Eosinophils 2, Absolute Eosinophils 0.1, Absolute Basophils 0, Poikilocytosis 2+, Anisocytosis 2+, Ovalocytes 1+, PUBS MCHC 33.3 04/04/16 2237: Troponin I 0.50 *H 04/04/16 1639: Troponin I 0.47 *H 04/04/16 1639: Lactic Acid 1.2, PT 14.8 H, INR 1.41 H, APTT 41 H 04/04/16 1150: Urinalysis LIGHT H, Urine Color YEL, Urine Clarity HAZY H, Urine pH 6.5, Ur Specific [place] 1.020, Urine Protein TRACE H, Urine Ketones NEG, Urine Nitrite NEG, Urine Bilirubin NEG, Urine Urobilinogen 0.2, Ur Leukocyte Esterase SMALL H , Ur Microscopic SEDIMENT EXAMINED, Urine RBC >75 H, Urine WBC 25-50 H, Urine Hemoglobin LARGE H, Urine Glucose NEG 04/04/16 1120: Lactic Acid 1.5 04/04/16 1014: Anion Gap 11, Estimated GFR > 60, BUN/Creatinine Ratio 21.1, Glucose 122 H, Calcium 9.5, Magnesium 2.0, Total Bilirubin 1.0, AST 29, ALT 31, Alkaline Phosphatase 121, Creatine Kinase 38 L, Troponin I 0.19 *H, Mkc-[id number]-[id number] Pept 50481 H, Total Protein 6.2 L, Albumin 3.9, Globulin 2.3, Albumin/Globulin Ratio 1.7, CBC w Diff MAN DIFF ORDERED, RBC 4.43 L, MCV 95.2 H, MCH 31.5 H, RDW 18.2 H, MPV 8.4, Gran % 96.9 H, Lymphocytes % 1.3 L, Monocytes % 1.5 L, Eosinophils % 0.3, Basophils % 0 L, Absolute Granulocytes 30.0 H, Segmented Neutrophils 83 H, Band Neutrophils 10 H, Absolute Lymphocytes 0.4 L, Lymphocytes 2 L, Monocytes 5, Absolute Monocytes 0.5, Absolute Eosinophils 0.1, Absolute Basophils 0, Poikilocytosis 2+, Anisocytosis 2+, Ovalocytes 1+, PUBS MCHC 33.1 Microbiology 04/04 1150 URINE ROUT: Urine Culture - COMP Assessment/Plan Assessment/Plan Assessment: 1. Elevated troponin-the patient's initial troponin is elevated at 0.19. ECG shows nonspecific changes. At this point, the patient's troponin has risen to 0.57. Follow-up troponin pending. I suspect demand ischemia. ECG unchanged. 2. Mechanical fall; cannot exclude syncope 3. Markedly elevated white count with abnormal urinalysis; possible urinary tract infection 4. Elevated proBNP 5. History of mitral insufficiency, tricuspid insufficiency, and mild aortic stenosis 6. Hypertension 7. Hyperlipidemia 8. Urologic issues with indwelling Rothman 9. Dementia Recommendations: -Continue to trend troponin until decreasing -Continue current medications -No indication for anticoagulation at present. -Await echocardiogram. -Further plans after echocardiogram. Continue telemetry? Yes
--- NOTE | 2016-04-05 15:06 | PN- Att Addend ---
Attending Addendum Attending Brief Note Patient more alert today sitting in bed, still not oriented to time and place. Patient is a febrile. Bacteriology just called stating one of the blood cultures showing gram-positive cocci. His white count is down to 13,000 his troponin slightly coming down probably demand ischemia. Appreciate input and will continue observation monitor his labs closely. In a.m. get a PT eval. Intake & Output 04/05 1600 04/05 0800 04/05 0000 04/04 1600 04/04 0800 04/04 0000 Intake Total 1200 525 480 75 Output Total 250 250 300 700 Balance 950 275 180 -625 Intake, IV 600 525 75 Intake, Oral 600 480 0 Output, Urine 250 250 300 700 Patient 150 lb Weight Current Medications Sig/Ttayana Start time Last Medication Dose Route Stop Time Status Admin Amlodipine Besylate 5 MG DAILY 04/05 1000 AC 04/05 PO 0911 Anagrelide HCl 0.5 MG BID 04/05 1000 AC 04/05 PO 0909 Aspirin 325 MG ONCE ONE 04/05 1000 DC 04/05 PO 04/05 1001 0911 Atorvastatin Calcium 80 MG 1700 04/04 1700 AC 04/04 PO 1730 Ceftriaxone Sodium 1,000 MG Q24H 04/04 1400 AC 04/05 IV 1313 Dutasteride 0.5 MG DAILY@1700 04/05 1700 AC PO Ferrous Sulfate 325 MG TID 04/04 1600 AC 04/05 PO 0907 Heparin Sodium 5,000 UNIT Q8 04/04 1400 AC 04/05 (Porcine) SC 1247 Metoprolol Tartrate 50 MG BID 04/04 2200 AC 04/05 PO 0908 Multivitamins 1 TAB DAILY 04/04 1247 AC 04/05 PO 0907 Potassium Chloride 20 MEQ BID 04/04 1551 DC 04/04 PO 04/04 2201 2128 Rivastigmine 9.5 MG DAILY 04/05 1000 AC 04/05 TOP 0911 Sodium Chloride 1,000 ML .[id number] 04/04 1245 AC 04/05 IV 1247 Tamsulosin HCl 0.4 MG DAILY 04/05 1000 AC 04/05 PO 0907 Laboratory Tests 04/05/16 1055: Anion Gap 8, Estimated GFR > 60, BUN/Creatinine Ratio 22.0, Troponin I 0.57 *H, Triglycerides 113, Cholesterol 112, LDL Cholesterol, Calc 46 L, HDL Cholesterol 44, Cholesterol/HDL Ratio 3, CBC w Diff MAN DIFF ORDERED, RBC 3.76 L, MCV 95.6 H, MCH 31.8 H, RDW 18.1 H, MPV 8.5, Gran % 91.1 H, Lymphocytes % 5.1 L, Monocytes % 2.8, Eosinophils % 0.7, Basophils % 0.3, Absolute Granulocytes 11.8 H, Segmented Neutrophils 78 H, Band Neutrophils 12 H, Absolute Lymphocytes 0.7 L, Lymphocytes 6 L, Monocytes 2, Absolute Monocytes 0.4, Eosinophils 2, Absolute Eosinophils 0.1, Absolute Basophils 0, Poikilocytosis 2+, Anisocytosis 2+, Ovalocytes 1+, PUBS MCHC 33.3 04/04/16 2237: Troponin I 0.50 *H 04/04/16 1639: Troponin I 0.47 *H 04/04/16 1639: Lactic Acid 1.2, PT 14.8 H, INR 1.41 H, APTT 41 H 04/04/16 1150: Urinalysis LIGHT H, Urine Color YEL, Urine Clarity HAZY H, Urine pH 6.5, Ur Specific [place] 1.020, Urine Protein TRACE H, Urine Ketones NEG, Urine Nitrite NEG, Urine Bilirubin NEG, Urine Urobilinogen 0.2, Ur Leukocyte Esterase SMALL H , Ur Microscopic SEDIMENT EXAMINED, Urine RBC >75 H, Urine WBC 25-50 H, Urine Hemoglobin LARGE H, Urine Glucose NEG 04/04/16 1120: Lactic Acid 1.5 04/04/16 1014: Anion Gap 11, Estimated GFR > 60, BUN/Creatinine Ratio 21.1, Glucose 122 H, Calcium 9.5, Magnesium 2.0, Total Bilirubin 1.0, AST 29, ALT 31, Alkaline Phosphatase 121, Creatine Kinase 38 L, Troponin I 0.19 *H, [id number] Pept 05109 H, Total Protein 6.2 L, Albumin 3.9, Globulin 2.3, Albumin/Globulin Ratio 1.7, CBC w Diff MAN DIFF ORDERED, RBC 4.43 L, MCV 95.2 H, MCH 31.5 H, RDW 18.2 H, MPV 8.4, Gran % 96.9 H, Lymphocytes % 1.3 L, Monocytes % 1.5 L, Eosinophils % 0.3, Basophils % 0 L, Absolute Granulocytes 30.0 H, Segmented Neutrophils 83 H, Band Neutrophils 10 H, Absolute Lymphocytes 0.4 L, Lymphocytes 2 L, Monocytes 5, Absolute Monocytes 0.5, Absolute Eosinophils 0.1, Absolute Basophils 0, Poikilocytosis 2+, Anisocytosis 2+, Ovalocytes 1+, PUBS MCHC 33.1 Microbiology 04/04 1150 URINE ROUT: Urine Culture - COMP
[2016-04-05 16:45] VITALS: BP 118/62
[2016-04-06 00:12] VITALS: BP 120/70
--- NOTE | 2016-04-06 00:25 | NUR ---
PT CONTINUES TO HAVE BLOOD AROUND MEATUS OF PENIS. DRAWING KILN SUPERVISOR IMGE MADE AWARE. NO NEW ORDERS. WILL CONTINUE TO MONITOR.
--- NOTE | 2016-04-06 07:18 | PN- Housestaff ---
Subjective Follow-up For: Sepsis of urological origin Tele-Events Since Last Visit: Sinus rhythm, first-degree heart block, heart rate around 60s. Subjective: Seen and examined this morning. He was lying comfortably in bed in no acute distress, she was oriented 2, remains afebrile, satting in mid 90s on 2 L of nasal cannula oxygen. Other vitals within normal limits. Review of Systems Constitutional: Reports: see HPI. Objective Last 24 Hrs of Vital Signs/I&O Vital Signs Date Time Temp Pulse Resp B/P Pulse O2 O2 Flow FiO2 Ox Delivery Rate 04/06 0809 97.9 69 20 132/62 95 Nasal 2.0L Cannula 04/06 0012 98.6 59 20 120/70 97 04/06 0000 94 Nasal 2.0L Cannula 04/05 2151 73 122/70 04/05 1645 98.6 74 18 118/62 99 Nasal Cannula 04/05 1600 Nasal 2.0L Cannula Intake & Output 04/06 1600 04/06 0800 04/06 0000 Intake Total 700 1330 Output Total 500 500 Balance 200 830 Intake, IV 600 600 Intake, Oral 100 730 Output, Urine 500 500 Physical Exam General Appearance: Alert, Oriented X3, Cooperative, No Acute Distress Cardiovascular: Regular Rate, Normal S1, Normal S2 Lungs: Clear to Auscultation, Normal Air Movement Abdomen: Normal Bowel Sounds, Soft, No Tenderness Extremities: No Clubbing, No Cyanosis, No Edema Current Medications: Current Medications Sig/Tatyana Start time Last Medication Dose Route Stop Time Status Admin Amlodipine Besylate 5 MG DAILY 04/05 1000 AC 04/05 PO 0911 Anagrelide HCl 0.5 MG BID 04/05 1000 AC 04/05 PO 215 Aspirin 325 MG ONCE ONE 04/05 1000 DC 04/05 PO 04/05 1001 0911 Atorvastatin Calcium 80 MG 1700 04/04 1700 AC 04/05 PO 1557 Ceftriaxone Sodium 1,000 MG Q24H 04/04 1400 AC 04/05 IV 1313 Dutasteride 0.5 MG DAILY@1700 04/05 1700 AC 04/05 PO 1558 Ferrous Sulfate 325 MG TID 04/04 1600 AC 04/05 PO 215 Heparin Sodium 5,000 UNIT Q8 04/04 1400 AC 04/06 (Porcine) SC 0548 Metoprolol Tartrate 50 MG BID 04/04 2200 AC 04/05 PO 2151 Multivitamins 1 TAB DAILY 04/04 1247 04/05 PO 0907 Rivastigmine 9.5 MG DAILY 04/05 1000 04/05 TOP 0911 Sodium Chloride 1,000 ML .[id number] 04/04 1245 04/06 IV 0548 Tamsulosin HCl 0.4 MG DAILY 04/05 1000 04/05 PO 0907 Last 24 Hrs of Lab/Gurpreet Results Last 24 Hrs of Labs/Mics: Laboratory Tests 04/06/16 0603: Anion Gap 8, Estimated GFR > 60, BUN/Creatinine Ratio 21.0, CBC w Diff Pending, WBC Pending, RBC Pending, Hgb Pending, Hct Pending, MCV Pending, MCH Pending, RDW Pending, Plt Count Pending, MPV Pending, Gran % Pending, Lymphocytes % Pending, Monocytes % Pending, Eosinophils % Pending, Basophils % Pending, Absolute Granulocytes Pending, Absolute Lymphocytes Pending, Absolute Monocytes Pending, Absolute Eosinophils Pending, Absolute Basophils Pending, PUBS MCHC Pending 04/05/16 1720: Troponin I 0.47 *H 04/05/16 1055: Anion Gap 8, Estimated GFR > 60, BUN/Creatinine Ratio 22.0, Troponin I 0.57 *H, Triglycerides 113, Cholesterol 112, LDL Cholesterol, Calc 46 L, HDL Cholesterol 44, Cholesterol/HDL Ratio 3, CBC w Diff MAN DIFF ORDERED, RBC 3.76 L, MCV 95.6 H, MCH 31.8 H, RDW 18.1 H, MPV 8.5, Gran % 91.1 H, Lymphocytes % 5.1 L, Monocytes % 2.8, Eosinophils % 0.7, Basophils % 0.3, Absolute Granulocytes 11.8 H, Segmented Neutrophils 78 H, Band Neutrophils 12 H, Absolute Lymphocytes 0.7 L, Lymphocytes 6 L, Monocytes 2, Absolute Monocytes 0.4, Eosinophils 2, Absolute Eosinophils 0.1, Absolute Basophils 0, Poikilocytosis 2+, Anisocytosis 2+, Ovalocytes 1+, PUBS MCHC 33.3 Microbiology 04/06 0826 URINE ROUT: Urine Culture - ORD Assessment/Plan Assessment: Patient is an 89-year-old male with history of hypertension, essential thrombocythemia, hyperlipidemi, non-ST elevation myocardial infarction ( angioplasty/stent in the past), inferior wall [place] recently status post cardiac cath in the [facility], oral cancer (s/p 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 Per record he was was soiled with large amount of stool. Vitals and labs as above: Problems: #Sepsis most likely of urologic origin: * On admission low grade fever of 100.4, has been afebrile over since, leukocytosis 31>> 13 * Continue Ceftriaxone 1g IV. * One set of blood culture came positive for gram-positive cocci in cluster * Urine culture is pending #Positive troponin: * Cardiology following * Troponin 0.47, 0.5, 0.57>>0.47 * Continue aspirin, lopressor * Will hold on nitroglycerin as the patient was asymptomatic * Echocardiogram is pending #BPH: * Will continue Flomax at home dose and Avodart at home dose. #Hx. of HTN, CAD: * Continue Norvasc as well as metoprolol * Continue ASA 325mg will continue that, will continue Lipitor 80 mg daily. #Essential thrombocythemia * Continue Agrylin 0.5 mg TAB BID * anagrelide 0.5 mg PO twice a day for essential thrombocythemia. #Dementia * Patient has sundowning * We'll start with soft bilateral wrist restrain for unsafe ambulation * Consider small dose of Xanax or haloperidol if the patient continued to be agitated * DVT prophylaxis with subcutaneous Lovenox Pain pathway Full code for now, patient's dose not what DNR/DNI means, she stated that she had a paper from the court with the code status, will ask her to bring it to the hospital. When asked if she want us to do every thing to safe his life she stated yes but no feeding tube. Problem List: 1. Leukocytosis 2. Chronic indwelling Rothman catheter 3. Essential thrombocythemia 4. HTN (hypertension) Pain Ratin Pain Location: None Pain Goal: Remain pain free Pain Plan: Mild pain pathway Tomorrow's Labs & Rationales: WBC 4 CBC monitoring insetting of infection.
[2016-04-06 08:09] VITALS: BP 132/62
[2016-04-06 08:36] LABS: ABSOLUTE BASOPHIL COUNT 0.1 /CUMM (0.0-0.2); ABSOLUTE EOSINOPHIL COUNT 0.3 /CUMM (0.0-0.7); ABSOLUTE GRANULOCYTE CT 8.1 /CUMM (1.4-6.5); ABSOLUTE LYMPH COUNT 1.1 /CUMM (1.2-3.4); ABSOLUTE MONOCYTE COUNT 0.5 /CUMM (0.10-0.60); BASOPHIL % 0.9 % (0.0-2.0); EOSINOPHIL % 2.6 % (0-5); GRANULOCYTE % 81.1 % (42.2-75.2); HEMATOCRIT 34.5 % (42-52); MEAN CORPUSCULAR HGB 31.7 PG (27.0-31.0); MEAN CORPUSCULAR VOLUME 96.3 FL (80.0-94.0); MEAN PLATELET VOLUME 8.8 FL (7.4-10.4); PLATELET COUNT 385 /CUMM (130-400); RBC DISTRIBUTION WIDTH 18.7 % (11.5-14.5); RED BLOOD CELL CT 3.58 /CUMM (4.70-6.10)
--- NOTE | 2016-04-06 08:54 | PN- Att Addend ---
Attending Addendum Attending Brief Note Patient appears about his baseline answering questions appropriately General Appearance: Alert, No Acute Distress Skin: Grossly normal HEENT: PEERLA Neck: Supple, No JVD Cardiovascular: Regular Rate, Normal S1, Normal S2, No Murmurs Lungs: Clear to Auscultation, Normal Air Movement Abdomen: Normal Bowel Sounds, Soft, No Tenderness Neurological: Normal Speech, Strength at 5/5 X4 Ext, Cranial Nerves 3-12 NL, Reflexes 2+ Extremities: No Clubbing, No Cyanosis, No Edema Vascular: Normal Pulses Assessment 89-year-old male with dementia presenting status post fall and positive troponins with elevated leukocytosis and 1 out of 2 bottles showing gram- positive cocci in clusters. He is currently on IV ceftriaxone with a nonconclusive UA and a negative chest x-ray. Leukocytosis is trending down and patient not exhibiting any signs of sepsis. We will follow sensitivity for his current positive blood cultures and taper and appendix accordingly. Positive troponins likely demand at this time is awaiting for echo. Plan Follow blood cultures sensitivity Repeat UA and urine culture Follow echo cardiogram PT evaluation Continue other home meds Current Medications Sig/Tatyana Start time Last Medication Dose Route Stop Time Status Admin Amlodipine Besylate 5 MG DAILY 04/05 1000 AC 04/05 PO 0911 Anagrelide HCl 0.5 MG BID 04/05 1000 AC 04/05 PO 2152 Aspirin 325 MG ONCE ONE 04/05 1000 DC 04/05 PO 04/05 1001 0911 Atorvastatin Calcium 80 MG 1700 04/04 1700 AC 04/05 PO 1557 Ceftriaxone Sodium 1,000 MG Q24H 04/04 1400 AC 04/05 IV 1313 Dutasteride 0.5 MG DAILY@1700 04/05 1700 AC 04/05 PO 1558 Ferrous Sulfate 325 MG TID 04/04 1600 AC 04/05 PO 2152 Heparin Sodium 5,000 UNIT Q8 04/04 1400 AC 04/06 (Porcine) SC 0548 Metoprolol Tartrate 50 MG BID 04/04 2200 AC 04/05 PO 2151 Multivitamins 1 TAB DAILY 04/04 1247 AC 04/05 PO 0907 Rivastigmine 9.5 MG DAILY 04/05 1000 AC 04/05 TOP 0911 Sodium Chloride 1,000 ML .[id number] 04/04 1245 AC 04/06 IV 0548 Tamsulosin HCl 0.4 MG DAILY 04/05 1000 AC 04/05 PO 0907 Laboratory Tests 04/06 04/05 04/05 0603 1720 1055 Chemistry Sodium (137 - 145 mmol/L) 138 139 Potassium (3.5 - 5.1 mmol/L) 3.7 4.4 Chloride (98 - 107 mmol/L) 106 105 Carbon Dioxide (22 - 30 mmol/L) 24 26 Anion Gap (5 - 16) 8 8 BUN (9 - 20 mg/dL) 21 H 22 H Creatinine (0.7 - 1.2 mg/dL) 1.0 1.0 Estimated GFR (>60 ml/min) > 60 > 60 BUN/Creatinine Ratio (7 - 25 %) 21.0 22.0 Troponin I (<0.11 ng/ml) 0.47 *H 0.57 *H Triglycerides (<150 mg/dL) 113 Cholesterol (< 200 MG/DL) 112 LDL Cholesterol, Calc (65 - 129 mg/dL) 46 L HDL Cholesterol (40 - 60 mg/dL) 44 Cholesterol/HDL Ratio (0.00 - 4.88 %) 3 Hematology CBC w Diff Pending MAN DIFF ORDERED WBC (4.8 - 10.8 /CUMM) Pending 13.0 H RBC (4.70 - 6.10 /CUMM) Pending 3.76 L Hgb (14.0 - 18.0 G/DL) Pending 11.9 L Hct (42 - 52 %) Pending 35.9 L MCV (80.0 - 94.0 FL) Pending 95.6 H MCH (27.0 - 31.0 PG) Pending 31.8 H RDW (11.5 - 14.5 %) Pending 18.1 H Plt Count (130 - 400 /CUMM) Pending 430 H MPV (7.4 - 10.4 FL) Pending 8.5 Gran % (42.2 - 75.2 %) Pending 91.1 H Lymphocytes % (20.5 - 51.1 %) Pending 5.1 L Monocytes % (1.7 - 9.3 %) Pending 2.8 Eosinophils % (0 - 5 %) Pending 0.7 Basophils % (0.0 - 2.0 %) Pending 0.3 Absolute Granulocytes (1.4 - 6.5 /CUMM) Pending 11.8 H Segmented Neutrophils (42.2 - 75.2 %) 78 H Band Neutrophils (0.0 - 5.0 %) 12 H Absolute Lymphocytes (1.2 - 3.4 /CUMM) Pending 0.7 L Lymphocytes (20.5 - 51.1 %) 6 L Monocytes (1.7 - 9.3 %) 2 Absolute Monocytes (0.10 - 0.60 /CUMM) Pending 0.4 Eosinophils (0 - 5.0 %) 2 Absolute Eosinophils (0.0 - 0.7 /CUMM) Pending 0.1 Absolute Basophils (0.0 - 0.2 /CUMM) Pending 0 Poikilocytosis 2+ Anisocytosis 2+ Ovalocytes 1+ PUBS MCHC (33.0 - 37.0 G/DL) Pending 33.3 Vital Signs Date Time Temp Pulse Resp B/P Pulse O2 O2 Flow FiO2 Ox Delivery Rate 04/06 0809 97.9 69 20 132/62 95 Nasal 2.0L Cannula 04/06 0012 98.6 59 20 120/70 97 04/06 0000 94 Nasal 2.0L Cannula 04/05 2151 73 122/70 04/05 1645 98.6 74 18 118/62 99 Nasal Cannula 04/05 1600 Nasal 2.0L Cannula
[2016-04-06 16:50] VITALS: BP 128/68
--- NOTE | 2016-04-06 20:36 | ECHOCARDIOGRAM REPORT ---
MARILYN PERRY Age: 89 : 1925 Gender: M Exam Date: 04/06/2016 10:08 Exam Location: [address] Ht (in): 70 Wt (lb): 150 BSA: 1.83 BP: / Ordering Physician: MARS COSTELLO MD Referring Physician: MARS COSTELLO MD Technologist: Morteza Mittal [facility] Room Number: 171-1 Indications: HYPERTENSION Rhythm: Sinus Technical Quality: fair FINDINGS Left Ventricle Normal size left ventricle. Mildly abnormal left ventricular ejection fraction estimated at 40-45%. Hypokinetic inferior wall. Hypokinetic lateral wall. Right Ventricle Normal right ventricular size and function. Right Atrium Normal right atrial size. Left Atrium Mild left atrial dilatation. Mitral Valve Mild mitral annular calcification. [id number] mitral regurgitation. Aortic Valve Diffuse thickening of the aortic valve cusps with reduced excursion. [id number] aortic stenosis. Tricuspid Valve Tricuspid valve is normal in structure and function. Mild-to- moderate tricuspid regurgitation. Right ventricular systolic pressure estimated to be elevated at 45 mmHg. Pulmonic Valve Pulmonic valve not well visualized, grossly normal. Pericardium Normal pericardium. Great Vessels Normal size aortic root. CONCLUSIONS Mild to moderate reduction in left ventricular sysolic function with inferior and lateral hypokinesia. Moderate to severe aortic stenosis. Mild to moderate Pulmonary hypertension. Tulio Gtz M.D. (Electronically Signed) Final Date: 06 April 2016 20:36 MEASUREMENTS (Male / Female) Normal Values 2D ECHO LV Diastolic Diameter PLAX 5.7 cm 4.2 - 5.9 / 3.9 - 5.3 cm LV Systolic Diameter PLAX 4.1 cm 2.1 - 4.0 cm LV Fractional Shortening PLAX 28.1 % 25 - 46 % LV Ejection Fraction 2D Teich 53.6 % IVS Diastolic Thickness 0.8 cm LVPW Diastolic Thickness 0.9 cm LV Relative Wall Thickness 0.3 RV Internal Dim ED PLAX 4.1 cm 1.9 - 3.8 cm LVOT Diameter 2.0 cm Aortic Root Diameter 2.9 cm LA Systolic Diameter LX 3.7 cm 3.0 - 4.0 / 2.7 - 3.8 cm Ascending Aorta Diameter 3.2 cm DOPPLER AV Peak Velocity 262.0 cm/s AV Peak Gradient 27.5 mmHg AV Mean Velocity 187.0 cm/s AV Mean Gradient 16.0 mmHg AV Velocity Time Integral 67.0 cm LVOT Peak Velocity 66.9 cm/s LVOT Peak Gradient 1.8 mmHg LVOT Mean Velocity 47.0 cm/s LVOT Mean Gradient 1.0 mmHg LVOT Velocity Time Integral 14.2 cm LVOT Stroke Volume 44.6 cm AV Area Cont Eq vti 0.7 cm AV Area Cont Eq pk 0.8 cm MV Peak Velocity 72.1 cm/s MV Peak Gradient 2.1 mmHg MV Mean Velocity 55.8 cm/s MV Mean Gradient 1.0 mmHg Mitral E Point Velocity 79.0 cm/s Mitral A Point Velocity 52.3 cm/s Mitral E to A Ratio 1.5 MV PHT Velocity 77.2 cm/s MV Deceleration [place] 145.0 cm/s MV Pressure Half Time 159.7 ms MV Area PHT 1.4 cm MV Deceleration Time 201.0 ms MR Peak Velocity 554.0 cm/s MR Peak Gradient 122.8 mmHg TR Peak Velocity 315.0 cm/s TR Peak Gradient 39.7 mmHg Right Atrial Pressure 5.0 mmHg Pulmonary Artery Systolic Pressu 44.7 mmHg Right Ventricular Systolic Press 44.7 mmHg
--- NOTE | 2016-04-06 23:05 | PN- Cardiology ---
Subjective Subjective: Patient seen earlier today. Offered no complaints. here today visiting with him. He tells me he feels well, he is unsure why he is in the hospital. Objective Vital Signs and I&Os Vital Signs Date Time Temp Pulse Resp B/P Pulse O2 O2 Flow FiO2 Ox Delivery Rate 04/06 1650 98.1 73 20 128/68 94 Nasal 2.0L Cannula 04/06 1103 69 132/62 04/06 1102 69 132/62 04/06 1102 69 132/62 04/06 0809 97.9 69 20 132/62 95 Nasal 2.0L Cannula 04/06 0800 Nasal 2.0L Cannula 04/06 0012 98.6 59 20 120/70 97 04/06 0000 94 Nasal 2.0L Cannula Intake & Output 04/06 1600 04/06 0800 04/06 0000 04/05 1600 04/05 0800 04/05 0000 Intake Total 700 1330 1200 525 480 Output Total 550 500 500 250 250 300 Balance -550 200 830 950 275 180 Intake, IV 600 600 600 525 Intake, Oral 100 730 600 480 Output, Urine 550 500 500 250 250 300 Physical Exam: General: no apparent distress. Alert. Eyes: No obvious scleral icterus. HEENT: No jugular venous distention or abnormal jugular venous pulsations. Cardiovascular: Normal intensity S1/S2. 2/6 systolic ejection murmur. Respiratory: no rales or ronchi Abdomen: Soft, nontender with no guarding or rebound tenderness. Skin: warm Current Medications: Current Medications Sig/Tatyana Start time Last Medication Dose Route Stop Time Status Admin Amlodipine Besylate 5 MG DAILY 04/05 1000 AC 04/06 PO 1103 Anagrelide HCl 0.5 MG BID 04/05 1000 AC 04/06 PO 1103 Atorvastatin Calcium 80 MG 1700 04/04 1700 AC 04/06 PO 1647 Ceftriaxone Sodium 1,000 MG Q24H 04/04 1400 AC 04/06 IV 1458 Dutasteride 0.5 MG DAILY@1700 04/05 1700 AC 04/06 PO 1648 Ferrous Sulfate 325 MG TID 04/04 1600 04/06 PO 1647 Heparin Sodium 5,000 UNIT Q8 04/04 1400 AC 04/06 (Porcine) SC 1459 Metoprolol Tartrate 50 MG BID 04/04 2200 AC 04/06 PO 1102 Multivitamins 1 TAB DAILY 04/04 1247 04/06 PO 1103 Rivastigmine 9.5 MG DAILY 04/05 1000 04/06 TOP 1103 Sodium Chloride 1,000 ML .[id number] 04/04 1245 04/06 IV 1647 Tamsulosin HCl 0.4 MG DAILY 04/05 1000 04/06 PO 1102 Results Last 48 Hrs of Labs/Mics: Laboratory Tests 04/06/16 1500: Urine Color YEL, Urine Clarity CLEAR, Urine pH 6.0, Ur Specific [place] 1.020, Urine Protein TRACE H, Urine Ketones NEG, Urine Nitrite NEG, Urine Bilirubin NEG, Urine Urobilinogen 0.2, Ur Leukocyte Esterase NEG, Ur Microscopic SEDIMENT EXAMINED, Urine RBC 50-75 H, Urine WBC 1-3 H, Ur Epithelial Cells OCCAS, Urine Hemoglobin LARGE H, Urine Glucose NEG 04/06/16 0603: Anion Gap 8, Estimated GFR > 60, BUN/Creatinine Ratio 21.0, CBC w Diff MAN DIFF ORDERED, RBC 3.58 L, MCV 96.3 H, MCH 31.7 H, RDW 18.7 H, MPV 8.8, Gran % 81.1 H, Lymphocytes % 10.8 L, Monocytes % 4.6, Eosinophils % 2.6, Basophils % 0.9, Absolute Granulocytes 8.1 H, Segmented Neutrophils 69, Band Neutrophils 12 H, Absolute Lymphocytes 1.1 L, Lymphocytes 9 L, Monocytes 5, Absolute Monocytes 0.5, Eosinophils 4, Absolute Eosinophils 0.3, Basophils 1, Absolute Basophils 0.1, Platelet Estimate VERIFIED BY SMEAR, Polychromasia 1+, Poikilocytosis 2+, Anisocytosis 1+, Ovalocytes 1+, Miky Cells 1+, Elliptocytes 1 +, PUBS MCHC 33.0 04/05/16 1720: Troponin I 0.47 *H 04/05/16 1055: Anion Gap 8, Estimated GFR > 60, BUN/Creatinine Ratio 22.0, Troponin I 0.57 *H, Triglycerides 113, Cholesterol 112, LDL Cholesterol, Calc 46 L, HDL Cholesterol 44, Cholesterol/HDL Ratio 3, CBC w Diff MAN DIFF ORDERED, RBC 3.76 L, MCV 95.6 H, MCH 31.8 H, RDW 18.1 H, MPV 8.5, Gran % 91.1 H, Lymphocytes % 5.1 L, Monocytes % 2.8, Eosinophils % 0.7, Basophils % 0.3, Absolute Granulocytes 11.8 H, Segmented Neutrophils 78 H, Band Neutrophils 12 H, Absolute Lymphocytes 0.7 L, Lymphocytes 6 L, Monocytes 2, Absolute Monocytes 0.4, Eosinophils 2, Absolute Eosinophils 0.1, Absolute Basophils 0, Poikilocytosis 2+, Anisocytosis 2+, Ovalocytes 1+, PUBS MCHC 33.3 Recent Imaging Studies: Telemetry tracings personally reviewed, shows SR Assessment/Plan Assessment/Plan 1. Elevated, flat troponin curve suggestive of demand ischemia 2. S/p fall of unclear etiology without obvious syncope; has previous fall hx with prior hip fx requiring intervention in the past 3. Coronary artery disease with prior PCIs, most recent was bare-metal stent placement 11/20/2014 (LCx) 4. BPH with indwelling Rothman catheter 5. Hx HTN/HLD 6. Hx of Dementia 7. Hx of Thrombocythemia (follows with Dr. Staley) 8. Hx of mild aortic stenosis by prior Echo 9. Leukocytosis, improving 10. Hx occlusive right carotid artery disease with bypass surgery Patient appears at baseline. ACS/CHF not suspected, flat troponin curve suggests demand ischemia. Does not appear obviously septic at this time; the elevated white count may have been a stress reaction. I suspect contaminant on the blood culture. Resume outpatient daily ASA given known CAD/vascular disease. Consider repeat carotid ultrasound given the known carotid disease. He remains on Anagrelide for known thrombocythemia. Continue daily statin and B-lan. BP is well controlled. Would check orthostatics daily while in the hospital. Physical exam suggests progression of his aortic stenosis but prior fall had been noted in the setting of mild in the past. Follow-up Echo but even with progression of aortic stenosis I would not proceed directly to TAVR without a clear correlation between and symptoms. Plan for possible non-invasive ischemic testing as outpatient but inpatient cardiac cath is not currently recommended. Edgardo Jones MD [facility] Continue telemetry? Yes
[2016-04-07 00:19] VITALS: BP 140/74
--- NOTE | 2016-04-07 07:26 | PN- Housestaff ---
Subjective Follow-up For: Sepsis urological origin Tele-Events Since Last Visit: Sinus bradycardia, first-degree heart block, heart rate between 57-78 Subjective: Patient seen and examined this morning. He was lying in bed in no acute distress. He was alert but not oriented, and afebrile, other vitals within normal limits. PT to work with him today and see if he needs to go to a short- term rehabilitation facility or not. Review of Systems Constitutional: Reports: see HPI. Objective Last 24 Hrs of Vital Signs/I&O Vital Signs Date Time Temp Pulse Resp B/P Pulse O2 O2 Flow FiO2 Ox Delivery Rate 04/07 08 97.9 66 20 130/80 95 Nasal 2.0L Cannula 04/07 0019 97.8 63 12 140/74 96 Nasal 2.0L Cannula 04/07 0000 95 Nasal 2.0L Cannula 04/06 1650 98.1 73 20 128/68 94 Nasal 2.0L Cannula 04/06 1103 69 132/62 04/06 1102 69 132/62 04/06 1102 69 132/62 Intake & Output 04/07 1600 04/07 0800 04/07 0000 Intake Total 1000 1080 Output Total 130 700 Balance 870 380 Intake, IV 600 600 Intake, Oral 400 480 Output, Urine 130 700 Physical Exam General Appearance: Alert, Mild Distress Cardiovascular: Regular Rate, Normal S1, Normal S2, No Murmurs Lungs: Clear to Auscultation, Normal Air Movement Abdomen: Normal Bowel Sounds, Soft, No Tenderness Extremities: No Clubbing, No Cyanosis, No Edema Current Medications: Current Medications Sig/Tatyana Start time Last Medication Dose Route Stop Time Status Admin Amlodipine Besylate 5 MG DAILY 04/05 1000 AC 04/06 PO 1103 Anagrelide HCl 0.5 MG BID 04/05 1000 AC 04/06 PO 2345 Aspirin 81 MG DAILY 04/07 1000 AC PO Atorvastatin Calcium 80 MG 1700 04/04 1700 AC 04/06 PO 1647 Ceftriaxone Sodium 1,000 MG Q24H 04/04 1400 DC 04/06 IV 1458 Dutasteride 0.5 MG DAILY@1700 04/05 1700 AC 04/06 PO 1648 Ferrous Sulfate 325 MG TID 04/04 1600 AC 04/06 PO 2345 Heparin Sodium 5,000 UNIT Q8 04/04 1400 AC 04/07 (Porcine) SC 0632 Metoprolol Tartrate 50 MG BID 04/04 2200 AC 04/06 PO 2345 Multivitamins 1 TAB DAILY 04/04 1247 AC 04/06 PO 1103 Rivastigmine 9.5 MG DAILY 04/05 1000 AC 04/06 TOP 1103 Sodium Chloride 1,000 ML .[id number] 04/04 1245 AC 04/07 IV 0633 Tamsulosin HCl 0.4 MG DAILY 04/05 1000 AC 04/06 PO 1102 Last 24 Hrs of Lab/Gurpreet Results Last 24 Hrs of Labs/Mics: Laboratory Tests 04/06/16 1500: Urine Color YEL, Urine Clarity CLEAR, Urine pH 6.0, Ur Specific [place] 1.020, Urine Protein TRACE H, Urine Ketones NEG, Urine Nitrite NEG, Urine Bilirubin NEG, Urine Urobilinogen 0.2, Ur Leukocyte Esterase NEG, Ur Microscopic SEDIMENT EXAMINED, Urine RBC 50-75 H, Urine WBC 1-3 H, Ur Epithelial Cells OCCAS, Urine Hemoglobin LARGE H, Urine Glucose NEG Microbiology 04/06 1500 URINE ROUT: Urine Culture - RES Assessment/Plan Assessment: Patient is an 89-year-old male with history of hypertension, essential thrombocythemia, hyperlipidemi, non-ST elevation myocardial infarction ( angioplasty/stent in the past), inferior wall IA recently status post cardiac cath in the [facility], oral cancer (s/p 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 Per record he was was soiled with large amount of stool. Vitals and labs as above: Problems: #Sepsis most likely of urologic origin: * On admission low grade fever of 100.4, has been afebrile over since, leukocytosis 31>> 13 * Discontinued Ceftriaxone 1g IV. * One set of blood culture came positive for alpha strep * Urine culture no growth to date #Positive troponin: * Cardiology following * Troponin 0.47, 0.5, 0.57>>0.47 * Continue aspirin, lopressor * Will hold on nitroglycerin as the patient was asymptomatic * Echocardiogram is pending #BPH: * Will continue Flomax at home dose and Avodart at home dose. #Hx. of HTN, CAD: * Continue Norvasc as well as metoprolol * Continue ASA 325mg will continue that, will continue Lipitor 80 mg daily. #Essential thrombocythemia * Continue Agrylin 0.5 mg TAB BID * anagrelide 0.5 mg PO twice a day for essential thrombocythemia. #Dementia * Patient has sundowning * We'll start with soft bilateral wrist restrain for unsafe ambulation * Consider small dose of Xanax or haloperidol if the patient continued to be agitated * DVT prophylaxis with subcutaneous Lovenox Pain pathway Full code for now, patient's dose not what DNR/DNI means, she stated that she had a paper from the court with the code status, will ask her to bring it to the hospital. When asked if she want us to do every thing to safe his life she stated yes but no feeding tube. Problem List: 1. Chronic indwelling Rothman catheter 2. Chronic anemia 3. HTN (hypertension) Pain Ratin Pain Location: none Pain Goal: Remain pain free Pain Plan: Mild pain pathway Tomorrow's Labs & Rationales: none
--- NOTE | 2016-04-07 07:43 | Patient Discharge Instructions ---
Discharge Instructions General Discharge Information You were seen/treated for: Leukocytosis Elevated troponins BPH Hypertension Coronary artery disease Essential thrombocytopenia Dementia Special Instructions: Please schedule a follow-up appointment with your primary care physician, signs and displays sales representative in 1 week. Diet Continue normal diet: Yes Recommended Diet: Heart Healthy Activity Activity Self Limited: Yes Acute Coronary Syndrome Inclusion Criteria At DC or during hospital stay patient has or had the following: ACS DIAGNOSIS No Discharge Core Measures Meds if any: Prescribed or Continued at Discharge Meds if any: NOT Prescribed or Continued at Discharge Congestive Heart Failure Inclusion Criteria At DC or during hospital stay patient has or had the following: CHF DIAGNOSIS No Discharge Core Measures Meds if any: Prescribed or Continued at Discharge Meds if any: NOT Prescribed or Continued at Discharge Cerebrovascular accident Inclusion Criteria At DC or during hospital stay patient has or had the following: CVA/TIA Diagnosis No Discharge Core Measures Meds if any: Prescribed or Continued at Discharge Meds if any: NOT Prescribed or Continued at Discharge Venous thromboembolism Inclusion Criteria VTE Diagnosis No VTE Type NONE VTE Confirmed by (Test) NONE Discharge Core Measures - Per Current guidelines, there needs to be overlap - treatment for the first 5 days of Warfarin therapy. - If discharged on Warfarin prior to 5 days of - overlap therapy, the patient will need to be - assessed for post discharge needs including - *Post discharge parental anticoagulation - *Warfarin and/or parental anticoagulation education - *Follow up date to check INR post discharge At least 5 days overlap therapy as Inpatient No Meds if any: Prescribed or Continued at Discharge Note: Overlap Therapy is Warfarin and Anticoagulant Meds if any: NOT Prescribed or Continued at Discharge
[2016-04-07 08:00] VITALS: BP 130/80
--- NOTE | 2016-04-07 08:51 | PN- Att Addend ---
Attending Addendum Attending Brief Note Patient appears about his baseline, confused General Appearance: Alert, No Acute Distress Skin: Grossly normal HEENT: PEERLA Neck: Supple, No JVD Cardiovascular: Regular Rate, Normal S1, Normal S2, No Murmurs Lungs: Clear to Auscultation, Normal Air Movement Abdomen: Normal Bowel Sounds, Soft, No Tenderness Neurological: Normal Speech, Strength at 5/5 X4 Ext, Cranial Nerves 3-12 NL, Reflexes 2+ Extremities: No Clubbing, No Cyanosis, No Edema Vascular: Normal Pulses Assessment Likely contamination. We will discontinue antibiotics. Echo suggest hypokinetic function with moderate to severe aortic stenosis. It is possible syncope was in the setting of aortic stenosis however given is advanced age and moderate dementia he will clearly be not a candidate for aortic valve replacement. We will get physical therapy and discharge with further workup as outpatient. Plan Discontinue antibiotics PT evaluation Continue other home meds Current Medications Sig/Tatyana Start time Last Medication Dose Route Stop Time Status Admin Amlodipine Besylate 5 MG DAILY 04/05 1000 AC 04/06 PO 1103 Anagrelide HCl 0.5 MG BID 04/05 1000 AC 04/06 PO 2345 Aspirin 81 MG DAILY 04/07 1000 AC PO Atorvastatin Calcium 80 MG 1700 04/04 1700 AC 04/06 PO 1647 Ceftriaxone Sodium 1,000 MG Q24H 04/04 1400 DC 04/06 IV 1458 Dutasteride 0.5 MG DAILY@1700 04/05 1700 AC 04/06 PO 1648 Ferrous Sulfate 325 MG TID 04/04 1600 AC 04/06 PO 2345 Heparin Sodium 5,000 UNIT Q8 04/04 1400 AC 04/07 (Porcine) NE 0632 Metoprolol Tartrate 50 MG BID 04/04 2200 AC 04/06 PO 2345 Multivitamins 1 TAB DAILY 04/04 1247 AC 04/06 PO 1103 Rivastigmine 9.5 MG DAILY 04/05 1000 AC 04/06 TOP 1103 Sodium Chloride 1,000 ML .[id number] 04/04 1245 AC 04/07 IV 0633 Tamsulosin HCl 0.4 MG DAILY 04/05 1000 AC 04/06 PO 1102 Laboratory Tests 04/06 1500 Urines Urine Color (YEL,AMB,STR) YEL Urine Clarity (CLEAR) CLEAR Urine pH (5.0 - 8.0) 6.0 Ur Specific [place] (1.001 - 1.035) 1.020 Urine Protein (NEG,<30 MG/DL) TRACE H Urine Ketones (NEG) NEG Urine Nitrite (NEG) NEG Urine Bilirubin (NEG) NEG Urine Urobilinogen (0.1 - 1.0 EU/dl) 0.2 Ur Leukocyte Esterase (NEG) NEG Ur Microscopic SEDIMENT EXAMINED Urine RBC (0 - 5 /HPF) 50-75 H Urine WBC (0 - 2 /HPF) 1-3 H Ur Epithelial Cells (NONE,FEW) OCCAS Urine Hemoglobin (NEG) LARGE H Urine Glucose (N MG/DL) NEG Vital Signs Date Time Temp Pulse Resp B/P Pulse O2 O2 Flow FiO2 Ox Delivery Rate 04/07 0019 97.8 63 12 140/74 96 Nasal 2.0L Cannula 04/07 0000 95 Nasal 2.0L Cannula 04/06 1650 98.1 73 20 128/68 94 Nasal 2.0L Cannula 04/06 1103 69 132/62 04/06 1102 69 132/62 04/06 1102 69 132/62
--- NOTE | 2016-04-07 09:26 | PN- Cardiology ---
Subjective Subjective: Patient is awake and alert confused but denies chest pain or shortness of breath. Review of Systems: Eyes no blurred or double vision Ears no deafness or ringing Nose and throat no recurrent sinusitis Lungs per history of present illness Heart per history of present illness Abdomen no nausea vomiting Musculoskeletal occasional muscle and joint pains Psych no anxiety or depression Neuro without recurrent headache or seizures Endocrine no heat or cold intolerance Objective Vital Signs and I&Os Vital Signs Date Time Temp Pulse Resp B/P Pulse O2 O2 Flow FiO2 Ox Delivery Rate 04/07 0019 97.8 63 12 140/74 96 Nasal 2.0L Cannula 04/07 0000 95 Nasal 2.0L Cannula 04/06 1650 98.1 73 20 128/68 94 Nasal 2.0L Cannula 04/06 1103 69 132/62 04/06 1102 69 132/62 04/06 1102 69 132/62 Intake & Output 04/07 1600 04/07 0800 04/07 0000 04/06 1600 04/06 0800 04/06 0000 Intake Total 1000 3096 623 7902 Output Total 130 700 550 500 500 Balance 870 380 -550 200 830 Intake, IV 600 600 600 600 Intake, Oral 400 480 100 730 Output, Urine 130 700 550 500 500 Physical Exam: Patient is a well-developed well-nourished male appearing in no acute distress HEENT is unremarkable Neck is supple there is no JVD Lungs are clear Heart regular rhythm S1 and S2 are normal no murmurs gallops or rubs Abdomen bowel sounds positive Extremities without edema Current Medications: Current Medications Sig/Tatyana Start time Last Medication Dose Route Stop Time Status Admin Amlodipine Besylate 5 MG DAILY 04/05 1000 AC 04/06 PO 1103 Anagrelide HCl 0.5 MG BID 04/05 1000 AC 04/06 PO 2345 Aspirin 81 MG DAILY 04/07 1000 AC PO Atorvastatin Calcium 80 MG 1700 04/04 1700 AC 04/06 PO 1647 Ceftriaxone Sodium 1,000 MG Q24H 04/04 1400 DC 04/06 IV 1458 Dutasteride 0.5 MG DAILY@1700 04/05 1700 AC 04/06 PO 1648 Ferrous Sulfate 325 MG TID 04/04 1600 AC 04/06 PO 2345 Heparin Sodium 5,000 UNIT Q8 04/04 1400 AC 04/07 (Porcine) SC 0632 Metoprolol Tartrate 50 MG BID 01/21 2200 AC 04/06 PO 2345 Multivitamins 1 TAB DAILY 04/04 1247 AC 04/06 PO 1103 Rivastigmine 9.5 MG DAILY 04/05 1000 04/06 TOP 1103 Sodium Chloride 1,000 ML .[id number] 04/04 1245 04/07 IV 0633 Tamsulosin HCl 0.4 MG DAILY 04/05 1000 AC 04/06 PO 1102 Results Last 48 Hrs of Labs/Mics: Laboratory Tests 04/06/16 1500: Urine Color YEL, Urine Clarity CLEAR, Urine pH 6.0, Ur Specific [place] 1.020, Urine Protein TRACE H, Urine Ketones NEG, Urine Nitrite NEG, Urine Bilirubin NEG, Urine Urobilinogen 0.2, Ur Leukocyte Esterase NEG, Ur Microscopic SEDIMENT EXAMINED, Urine RBC 50-75 H, Urine WBC 1-3 H, Ur Epithelial Cells OCCAS, Urine Hemoglobin LARGE H, Urine Glucose NEG 04/06/16 0603: Anion Gap 8, Estimated GFR > 60, BUN/Creatinine Ratio 21.0, CBC w Diff MAN DIFF ORDERED, RBC 3.58 L, MCV 96.3 H, MCH 31.7 H, RDW 18.7 H, MPV 8.8, Gran % 81.1 H, Lymphocytes % 10.8 L, Monocytes % 4.6, Eosinophils % 2.6, Basophils % 0.9, Absolute Granulocytes 8.1 H, Segmented Neutrophils 69, Band Neutrophils 12 H, Absolute Lymphocytes 1.1 L, Lymphocytes 9 L, Monocytes 5, Absolute Monocytes 0.5, Eosinophils 4, Absolute Eosinophils 0.3, Basophils 1, Absolute Basophils 0.1, Platelet Estimate VERIFIED BY SMEAR, Polychromasia 1+, Poikilocytosis 2+, Anisocytosis 1+, Ovalocytes 1+, Miky Cells 1+, Elliptocytes 1 +, PUBS MCHC 33.0 04/05/16 1720: Troponin I 0.47 *H 04/05/16 1055: Anion Gap 8, Estimated GFR > 60, BUN/Creatinine Ratio 22.0, Troponin I 0.57 *H, Triglycerides 113, Cholesterol 112, LDL Cholesterol, Calc 46 L, HDL Cholesterol 44, Cholesterol/HDL Ratio 3, CBC w Diff MAN DIFF ORDERED, RBC 3.76 L, MCV 95.6 H, MCH 31.8 H, RDW 18.1 H, MPV 8.5, Gran % 91.1 H, Lymphocytes % 5.1 L, Monocytes % 2.8, Eosinophils % 0.7, Basophils % 0.3, Absolute Granulocytes 11.8 H, Segmented Neutrophils 78 H, Band Neutrophils 12 H, Absolute Lymphocytes 0.7 L, Lymphocytes 6 L, Monocytes 2, Absolute Monocytes 0.4, Eosinophils 2, Absolute Eosinophils 0.1, Absolute Basophils 0, Poikilocytosis 2+, Anisocytosis 2+, Ovalocytes 1+, PUBS MCHC 33.3 Recent Imaging Studies: Echocardiogram CONCLUSIONS Mild to moderate reduction in left ventricular sysolic function with inferior and lateral hypokinesia. Moderate to severe aortic stenosis. Mild to moderate Pulmonary hypertension. Assessment/Plan Assessment/Plan 1. Elevated, flat troponin curve suggestive of demand ischemia 2. S/p fall of unclear etiology without obvious syncope; has previous fall hx with prior hip fx requiring intervention in the past 3. Coronary artery disease with prior PCIs, most recent was bare-metal stent placement 11/20/2014 (LCx) 4. BPH with indwelling Rothman catheter 5. Hx HTN/HLD 6. Hx of Dementia 7. Hx of Thrombocythemia (follows with Dr. Staley) 8. Hx of mild to moderate aortic stenosis by Echo 9. Leukocytosis, improving positive blood culture probably a contaminant 10. 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 Aortic stenosis is now mild to moderate therefore not significant enough to consider valve replacement. I doubt that this is the etiology of his fall. 2. Continue current medications 3. Physical therapy for ambulation 4. Will consider noninvasive ischemic workup as an outpatient but current plan is for conservative management Continue telemetry? Yes
[2016-04-07 15:27] VITALS: BP 125/70
[2016-04-08 00:13] VITALS: BP 128/68
--- NOTE | 2016-04-08 07:34 | PN- Housestaff ---
Subjective Follow-up For: Positive troponins, rule out ACS Tele-Events Since Last Visit: First-degree heart block, heart rate in 60s Subjective: seen and examined this morning he. He was lying in bed in no acute distress. His mental status is remains at baseline, afebrile, the right is within normal limits. He is to go to short-term rehabilitation today. Review of Systems Constitutional: Denies: chills, fever. Cardiovascular: Denies: chest pain, palpitations. Respiratory: Denies: cough, short of breath, sputum production. Gastrointestinal: Denies: abdominal pain, constipation, diarrhea, nausea, vomiting. Objective Last 24 Hrs of Vital Signs/I&O Vital Signs Date Time Temp Pulse Resp B/P Pulse O2 O2 Flow FiO2 Ox Delivery Rate 04/08 0903 97.9 81 20 130/70 04/08 0903 97.9 81 20 130/70 04/08 0903 97.9 81 20 130/70 04/08 0834 97.9 81 20 130/70 96 Nasal 2.0L Cannula 04/08 0013 97.8 67 18 128/68 94 Nasal Cannula 04/08 0000 95 Nasal 2.0L Cannula 04/07 2052 66 142/80 04/07 1621 Nasal 2.0L Cannula 04/07 1605 Nasal 2.0L Cannula 04/07 1600 Nasal 2.0L Cannula 04/07 1527 97.2 66 19 125/70 96 04/07 1002 66 130/80 04/07 1002 66 130/80 04/07 1002 66 130/80 Intake & Output 04/08 1600 04/08 0800 04/08 0000 Intake Total 840 900 Output Total 1300 1000 Balance -460 -100 Intake, IV 600 300 Intake, Oral 240 600 Output, Urine 1300 1000 Physical Exam General Appearance: Alert, Oriented X3, Cooperative, No Acute Distress Cardiovascular: Regular Rate, Normal S1, Normal S2, No Murmurs Lungs: Clear to Auscultation, Normal Air Movement Abdomen: Normal Bowel Sounds, Soft, No Tenderness Extremities: No Clubbing, No Cyanosis, No Edema Current Medications: Current Medications Sig/Tatyana Start time Last Medication Dose Route Stop Time Status Admin Amlodipine Besylate 5 MG DAILY 04/05 1000 AC 04/08 PO 902 Anagrelide HCl 0.5 MG BID 04/05 1000 AC 04/08 PO 902 Aspirin 81 MG DAILY 04/07 1000 AC 04/08 PO 0903 Atorvastatin Calcium 80 MG 1700 04/04 1700 AC 04/07 PO 1744 Dutasteride 0.5 MG DAILY@1700 04/05 1700 AC 04/07 PO 1744 Ferrous Sulfate 325 MG TID 04/04 1600 AC 04/08 PO 0903 Heparin Sodium 5,000 UNIT Q8 04/04 1400 AC 04/08 (Porcine) SC 0559 Metoprolol Tartrate 50 MG BID 04/04 2200 AC 04/08 PO 0903 Multivitamins 1 TAB DAILY 04/04 1247 AC 04/08 PO 0903 Rivastigmine 9.5 MG DAILY 04/05 1000 AC 04/08 TOP 0908 Sodium Chloride 1,000 ML .[id number] 04/04 1245 DC 04/07 IV 2050 Tamsulosin HCl 0.4 MG DAILY 04/05 1000 AC 04/08 PO 0903 Assessment/Plan Assessment: Patient is an 89-year-old male with history of hypertension, essential thrombocythemia, hyperlipidemi, non-ST elevation myocardial infarction ( angioplasty/stent in the past), inferior wall RI recently status post cardiac cath in the [facility], oral cancer (s/p 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 Per record he was was soiled with large amount of stool. Vitals and labs as above: Problems: #Positive troponin: * Resolved, likely secondary to demand ischemia * Troponin 0.47, 0.5, 0.57>>0.47 * Continue aspirin, lopressor * Echocardiogram and ejection fraction of 40-45%. #Leukocytosis upon presentation: * Resolved * One set of blood culture came positive for alpha strep * Urine culture no growth to date #BPH: * Will continue Flomax at home dose and Avodart at home dose. #Hx. of HTN, CAD: * Continue Norvasc as well as metoprolol * Continue ASA 325mg will continue that, will continue Lipitor 80 mg daily. #Essential thrombocythemia * Continue Agrylin 0.5 mg TAB BID * anagrelide 0.5 mg PO twice a day for essential thrombocythemia. #Dementia * Patient is at baseline mental state today. DVT prophylaxis with subcutaneous Lovenox Pain pathway Full code. Problem List: 1. Chronic indwelling Rothman catheter 2. CAD (coronary artery disease) 3. HTN (hypertension) Pain Ratin Pain Location: none Pain Goal: Remain pain free Pain Plan: Mild pain pathway Tomorrow's Labs & Rationales: None patient to be discharged Discharge Plan Discharge Disposition: STR/NH Stable for Discharge? Yes Anticipated Discharge (Day): today If Discharged Today/In 24 Hrs: W-10/discharge paper done, DC summary done, CMR done
[2016-04-08 08:34] VITALS: BP 130/70
--- NOTE | 2016-04-08 08:52 | PN- Att Addend ---
Attending Addendum Attending Brief Note Patient appears about his baseline, confused General Appearance: Alert, No Acute Distress Skin: Grossly normal HEENT: PEERLA Neck: Supple, No JVD Cardiovascular: Regular Rate, Normal S1, Normal S2, No Murmurs Lungs: Clear to Auscultation, Normal Air Movement Abdomen: Normal Bowel Sounds, Soft, No Tenderness Neurological: Normal Speech, Strength at 5/5 X4 Ext, Cranial Nerves 3-12 NL, Reflexes 2+ Extremities: No Clubbing, No Cyanosis, No Edema Vascular: Normal Pulses Assessment Likely contamination. We will discontinue antibiotics. Echo suggest hypokinetic function with moderate to severe aortic stenosis. It is possible syncope was in the setting of aortic stenosis however given his advanced age and moderate dementia he will clearly be not be a candidate for aortic valve replacement. discharge with further workup as outpatient. Plan Discontinue IV fluids Discharge patient to rehabilitation Continue other home meds Current Medications Sig/Tatyana Start time Last Medication Dose Route Stop Time Status Admin Amlodipine Besylate 5 MG DAILY 04/05 1000 AC 04/07 PO 1002 Anagrelide HCl 0.5 MG BID 04/05 1000 AC 04/07 PO 2049 Aspirin 81 MG DAILY 04/07 1000 AC 04/07 PO 1002 Atorvastatin Calcium 80 MG 1700 04/04 1700 AC 04/07 PO 1744 Dutasteride 0.5 MG DAILY@1700 04/05 1700 AC 04/07 PO 1744 Ferrous Sulfate 325 MG TID 04/04 1600 AC 04/07 PO 2049 Heparin Sodium 5,000 UNIT Q8 04/04 1400 AC 04/08 (Porcine) SC 0559 Metoprolol Tartrate 50 MG BID 04/04 2200 AC 04/07 PO 2051 Multivitamins 1 TAB DAILY 04/04 1247 AC 04/07 PO 1002 Rivastigmine 9.5 MG DAILY 04/05 1000 AC 04/07 TOP 1002 Sodium Chloride 1,000 ML .[id number] 04/04 1245 AC 04/07 IV 205 Tamsulosin HCl 0.4 MG DAILY 04/05 1000 AC 04/07 PO 1002 Vital Signs Date Time Temp Pulse Resp B/P Pulse O2 O2 Flow FiO2 Ox Delivery Rate 04/08 0834 97.9 81 20 130/70 96 Nasal 2.0L Cannula 04/08 0013 97.8 67 18 128/68 94 Nasal Cannula 04/08 0000 95 Nasal 2.0L Cannula 04/07 2051 66 142/80 04/07 1621 Nasal 2.0L Cannula 04/07 1605 Nasal 2.0L Cannula 04/07 1600 Nasal 2.0L Cannula 04/07 1527 97.2 66 19 125/70 96 04/07 1002 66 130/80 04/07 1002 66 130/80 04/07 1002 66 130/80
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
[2016-04-08 11:51] VITALS: BP 130/70
== END 2016-04-08 13:13 | DRG 311 ==
LOC: ERH 09:08 → ENPENDDIS 12:24 → ERHI 12:24 → 1NO 12:24
PROVIDERS: Emergency Medicine; Student in an Organized Health Care Education/Training Program; ADMIT Internal Medicine
DX: I24.8 Other forms of acute ischemic heart disease (principal); D69.6 Thrombocytopenia, unspecified; I11.9 Hypertensive heart disease without heart failure; D64.9 Anemia, unspecified; R55 Syncope and collapse; E78.5 Hyperlipidemia, unspecified; N40.0 Benign prostatic hyperplasia without lower urinary tract symptoms; I25.10 Atherosclerotic heart disease of native coronary artery without angina pectoris; Z95.5 Presence of coronary angioplasty implant and graft; Z85.819 Personal history of malignant neoplasm of unspecified site of lip, oral cavity, and pharynx
CPT/HCPCS: 1NP; 36415; 81001; 82436; 87040; 87086; 87147; 93005; 93010; 93306; 97001-GP; 97110-GO; 97116-GO; 97161-GP; J0696; J1644; J3490

== ENCOUNTER 2016-05-06 07:04 | Inpatient (IN) | payer OTHER, MEDICARE ==
[~2016-05-06] VITALS: Ht 177.8 cm; Wt 72.6 kg
--- NOTE | 2016-05-06 07:10 | NUR ---
PT BIBA FROM HOME FOR GI BLEED. PT WOKE UP THIS AM TO HAVE A BM, PT DID NOT MAKE IT TO THE TOILET IN TIME. NOTED HIS BM WAS ALL BLOOD. PT STATES HE ONLY HAD 1 EPISODE. PT ARRIVES WITH BLOOD ALL DOWN HIS LEG, ON HIS SHOES AND PANTS. DENIES ANY PAIN, ABD PAIN, C/P, DIFF BREATHING. PT CHANGED INTO GOWN, CLEANED WITH WARM WIPES. PLACED ON MONITOR. PT IS ON ASA AND A BLOOD THINNER, AGRYLIN.
--- NOTE | 2016-05-06 07:15 | NUR ---
PT NOTED WITH CARVALHO IN PLACE UPON ARRIVAL TO ED.
[2016-05-06] MEDS ORDERED: ASPIRIN81 M4 PO (07:55)
[2016-05-06 07:56] LABS: ABSOLUTE BASOPHIL COUNT 0.2 /CUMM (0.0-0.2); ABSOLUTE EOSINOPHIL COUNT 1.5 /CUMM (0.0-0.7); ABSOLUTE GRANULOCYTE CT 11.1 /CUMM (1.4-6.5); ABSOLUTE MONOCYTE COUNT 0.4 /CUMM (0.10-0.60); BASOPHIL % 1.2 % (0.0-2.0); EOSINOPHIL % 9.7 % (0-5); GRANULOCYTE % 73.2 % (42.2-75.2); HEMATOCRIT 41.1 % (42-52); MEAN CORPUSCULAR HGB 31.4 PG (27.0-31.0); MEAN CORPUSCULAR VOLUME 95.1 FL (80.0-94.0); MEAN PLATELET VOLUME 8.3 FL (7.4-10.4); RBC DISTRIBUTION WIDTH 18.4 % (11.5-14.5); RED BLOOD CELL CT 4.32 /CUMM (4.70-6.10); WHITE BLOOD CELL COUNT 15.2 /CUMM (4.8-10.8)
[2016-05-06] MEDS ORDERED: AVODART0.5 M1 PO (07:57)
[2016-05-06] MEDS ORDERED: TAMSULOSIN HCL0.4 M1 PO (07:58)
[2016-05-06] MEDS ORDERED: ATORVASTATIN CA80 M1 PO (08:01)
[2016-05-06 08:12] LABS: PLATELET COUNT 577 /CUMM (130-400)
--- NOTE | 2016-05-06 08:27 | NUR ---
urine trio sent
--- NOTE | 2016-05-06 08:42 | ED GENERAL ADULT ---
History of Present Illness General Chief Complaint: General Adult Stated Complaint: BIBA GI BLEEDING Source: patient Exam Limitations: patient's age, dementia, poor historian Vital Signs & Intake/Output Vital Signs & Intake/Output Vital Signs Date Time Temp Pulse Resp B/P Pulse O2 O2 Flow FiO2 Ox Delivery Rate 05/06 1057 97.5 60 20 120/70 95 Room Air 05/06 1031 97.1 62 20 136/70 96 Room Air 05/06 0911 97.0 61 20 139/70 95 Room Air 05/06 0743 96 Room Air 05/06 0707 96.6 61 20 129/71 96 Room Air Allergies Coded Allergies: NO KNOWN ALLERGIES (02/07/16) Reconcile Medications Amlodipine Besylate (Norvasc) 5 MG TABLET 1 TAB PO DAILY BP (Reported) Anagrelide Hydrochloride (Agrylin) 0.5 MG CAPSULE 1 CAP PO BID BLOOD THINNER (Reported) Aspirin (Aspirin*) 81 MG TAB.CHEW 1 TAB PO DAILY HEART HEALTH (Reported) Atorvastatin Calcium 80 MG TABLET 1 TAB PO DAILY CHOLESTEROL (Reported) Dutasteride (Avodart) 0.5 MG CAPSULE 1 CAP PO DAILY BPH (Reported) Ferrous Sulfate 325 MG (65 MG IRON) TABLET 1 TAB PO TID ANEMIA (Reported) Metoprolol Tartrate (Lopressor) 50 MG TABLET 1 TAB PO BID HEART (Reported) Rivastigmine (Exelon) 9.5 MG/Patch PAT 1 PAT TOP DAILY DEMENTIA (Reported) Tamsulosin HCl 0.4 MG CAP.ER.24H 1 CAP PO DAILY BPH (Reported) Triage Note: PT BIBA FROM HOME FOR GI BLEED. PT WOKE UP THIS AM TO HAVE A BM, PT DID NOT MAKE IT TO THE TOILET IN TIME. NOTED HIS BM WAS ALL BLOOD. PT STATES HE ONLY HAD 1 EPISODE. PT ARRIVES WITH BLOOD ALL DOWN HIS LEG, ON HIS SHOES AND PANTS. DENIES ANY PAIN, ABD PAIN, C/P, DIFF BREATHING. PT CHANGED INTO GOWN, CLEANED WITH WARM WIPES. PLACED ON MONITOR. PT IS ON ASA AND A BLOOD THINNER, AGRYLIN. Triage Nurses Notes Reviewed? yes HPI: 89-year-old man with multiple medical problems seen for evaluation of bright red blood per rectum. Orts waking up this morning and walking to the restroom when he noticed trickling of bright red blood down his leg and on the floor. Currently he reports feeling well denies any blurred/double vision, lightheadedness/dizziness, shortness of breath, palpitations, chest pain, nausea , vomiting. He does admit to taking aspirin and blood thinning medication that he believes he took this morning. Patient is a poor historian but does comment that this "happen before" and is unsure of the ultimate diagnosis given. (GINGER CASTILLO MD) Past History Travel History Traveled to [place] past 21 day No Medical History Any Pertinent Medical History? see below for history Neurological: dementia EENT: R ear deafness post-operatively Cardiovascular: hypertension, hyperlipidemia, mitral regurgitation Respiratory: NONE Gastrointestinal: NONE Hepatic: NONE Renal: benign prost hyperplasia, LEG BAG, PT UNSURE WHY Musculoskeletal: FEMORAL ARTHROPLASTY Psychiatric: NONE Endocrine: NONE Blood Disorders: NONE Cancer(s): ORAL CANCER [employer] ATHLETE/Reproductive: NONE Other Medical Hx: Benign prostatic hypertrophy History of MRSA: No History of VRE: No History of CDIFF: No Influenza Vaccine: 12/14/15 Surgical History Surgical History: coronary angioplasty/stent details not available Psychosocial History Who do you live with Spouse Services at Home Nursing What is your primary language Guinean Tobacco Use: Quit >30 days ago ETOH Use: denies use Illicit Drug Use: denies illicit drug use Family History Family History, If Any: FATHER ( around age 44 -- rectal CA). MOTHER (unknown heart condition). Hx Contributory? Yes (GINGER CASTILLO MD) Review of Systems Review of Systems Constitutional: Reports: see HPI. (GINGER CASTILLO MD) Review of Systems Constitutional: Reports: no symptoms. EENTM: Reports: no symptoms. Respiratory: Reports: no symptoms. Cardiovascular: Reports: no symptoms. GI: Reports: see HPI, bloody stool. Genitourinary: Reports: no symptoms. Musculoskeletal: Reports: no symptoms. Skin: Reports: no symptoms. Neurological/Psychological: Reports: no symptoms. Hematologic/Endocrine: Reports: no symptoms. Immunologic/Allergic: Reports: no symptoms. All Other Systems: Reviewed and Negative (ELOY KNOX MD) Physical Exam Physical Exam General Appearance: well developed/nourished, no apparent distress, alert, awake Comments: General -well-developed, well-nourished elderly man in no acute distress HEENT - NCAT, PERRL, EOMI, anicteric sclera Cardio - S1, S2 w/o murmurs/gallops/rubs Resp - CTA bilaterally w/o wheezing/rhochi/crackles GI - soft, nontender, nondistended, bowel sounds present, dried bright red blood on patient's legs Neuro - Awake and alert, CN II - XII grossly intact Extremities - no edema, pulses intact Core Measures ACS in differential dx? No CVA/TIA Diagnosis: No Severe Sepsis Present: No Septic Shock Present: No (JONATHAN SHARMA,GINGER) Progress Differential Diagnoses I considered the following diagnoses in my evaluation of the patient: Gastrointestinal bleed, diverticular bleed, diverticulitis, Clostridium difficile colitis, hemorrhoidal bleed, bleeding arteriovenous malformation Plan of Care: Orders Procedure Date/time Status Clear Liquid Diet 05/06 L Active Clear Liquid Diet 05/06 B Complete TROPONIN LEVEL 05/06 220 Active CBC WITHOUT DIFFERENTIAL 05/06 2200 Active EKG 05/06 220 Active TROPONIN LEVEL 05/06 1400 Active CBC WITHOUT DIFFERENTIAL 05/06 1400 Active EKG 05/06 1400 Active Turn and Reposition 05/06 1241 Active Skin Integrity Protocol 05/06 1241 Active Skin/Pressure Ulcer Assess (Sk 05/06 1241 Active NUTRITIONAL CONSULT 05/06 1241 Active Vital Signs 05/06 1230 Active Teach/Educate 05/06 1230 Active Nutritional Intake, Monitor 05/06 1230 Active Isolation 05/06 1230 Active Intake & Output 05/06 1230 Active Patient Care Conference 05/06 1230 Active Activity/Ambulation 05/06 1230 Active Pathway - chart 05/06 1145 Active Pathway - chart 05/06 1030 Active Lab Add-on Test 05/06 0941 Active OXYGEN SETUP (GEN) 05/06 0933 Active Saline Lock 05/06 0933 Active Admit to inpatient 05/06 0933 Active Vital Signs 05/06 0933 Active Activity/Ambulation 05/06 0933 Active Code Status 05/06 0933 Active Patient Data 05/06 0922 Active CULTURE,URINE 05/06 0825 Active URINALYSIS 05/06 0825 Complete PROTHROMBIN TIME 05/06 0740 Complete TROPONIN LEVEL 05/06 0733 Complete COMPREHENSIVE METABOLIC PANEL 05/06 0733 Complete CBC WITHOUT DIFFERENTIAL 05/06 0733 Complete TYPE & SCREEN (NOT X-MATCH) 05/06 0733 Complete EKG 05/06 0723 Active Intake & Output 05/06 0708 Active VTE Mechanical Prophylaxis 05/06 UNK Active Nursing Misc 05/06 UNK Active Hemoccult 05/06 UNK Active Rothman, Insertion/Removal/Asses 05/06 UNK Active EKG 05/06 UNK Active Current Medications Sig/Tatyana Start time Last Medication Dose Stop Time Status Admin Atorvastatin Calcium 80 MG 1700 05/06 1700 AC (Lipitor) Rivastigmine 9.5 MG DAILY 05/06 1300 AC (Exelon) Tamsulosin HCl 0.4 MG DAILY 05/06 1300 AC (Flomax) Acetaminophen 650 MG Q6P PRN 05/06 1145 AC (Tylenol) Acetaminophen 1,000 MG Q6P PRN 05/06 1145 AC (Ofirmev) Morphine Sulfate 1 MG Q6-PRN PRN 05/06 1145 AC (Morphine) Pantoprazole Sodium 40 MG DAILY 05/06 1045 AC (Protonix) Laboratory Tests 05/06/16 0827: Urinalysis LIGHT H, Urine Color YEL, Urine Clarity HAZY H, Urine pH 7.0, Ur Specific [place] 1.015, Urine Protein 30 H, Urine Ketones NEG, Urine Nitrite NEG, Urine Bilirubin NEG, Urine Urobilinogen 0.2, Ur Leukocyte Esterase SMALL H , Ur Microscopic SEDIMENT EXAMINED, Urine RBC 5-10 H, Urine WBC 15-25 H, Ur Epithelial Cells RARE, Urine Crystals 1+ CA OX H, Hyaline Casts RARE H, Urine Mucus FEW, Urine Hemoglobin SMALL H, Urine Glucose NEG 05/06/16 0740: Anion Gap 10, Estimated GFR > 60, BUN/Creatinine Ratio 21.1, Glucose 94, Calcium 9.7, Total Bilirubin 0.6, AST 30, ALT 32, Alkaline Phosphatase 105, Troponin I 0.01, Total Protein 6.3, Albumin 3.9, Globulin 2.4, Albumin/Globulin Ratio 1.6, PT 12.7 H, INR 1.21 H, CBC w Diff NO MAN DIFF REQ, RBC 4.32 L, MCV 95.1 H, MCH 31.4 H, RDW 18.4 H, MPV 8.3, Gran % 73.2, Lymphocytes % 13.3 L, Monocytes % 2.6, Eosinophils % 9.7 H, Basophils % 1.2, Absolute Granulocytes 11.1 H, Absolute Lymphocytes 2.0, Absolute Monocytes 0.4, Absolute Eosinophils 1.5, Absolute Basophils 0.2, PUBS MCHC 33.0 Microbiology 05/06 826 URINE ROUT: Urine Culture - RECD Initial ED EKG: none Comments: Patient had a colonoscopy performed on 08/18/14 for similar complaints. The study was limited due to incomplete preparation however did not identify any active source of lower gastrointestinal bleeding. Patient was encouraged to have a repeat examination at a later date with a more thorough preparation which does not appear to have been done. Given patient's history of present illness and past history of bright red blood per rectum it is possible patient is having a recurrence of his previously undiagnosed disease. Orthostats were negative. Complete blood count demonstrated leukocytosis and otherwise normal hemoglobin/ hematocrit. Comprehensive metabolic panel was within normal limits. First EKG and troponin were unremarkable. Urinalysis demonstrates WBC 15-25 without epithelial cells and a small amount of hemoglobin. GI was contacted and it was determined for the time being that patient should be started on a clear diet with monitoring of their hemodynamic status with instruction to alert them for any acute gastrointestinal hemorrhage. Case was discussed with Dr. Dickey and it was determined that patient warrants admission to general medicine for inpatient evaluation of his BRBPR and positive urinalysis. (GINGER CASTILLO MD) Differential Diagnoses I considered the following diagnoses in my evaluation of the patient: (LISETTE SHARMA,ELOY) Departure Departure Disposition: STILL A PATIENT Condition: Stable Clinical Impression Primary Impression: BRBPR (bright red blood per rectum) Secondary Impressions: Urinary tract infection Qualifiers: Urinary tract infection type: acute cystitis Hematuria presence: with hematuria Qualified Code: N30.01 - Acute cystitis with hematuria Referrals: DANIEL DICKEY MD (PCP/Family) Departure Forms: Customer Survey General Discharge Information (GINGER CASTILLO MD) Admission Note Spoke With: DANIEL DICKEY MD Documentation of Exam: Documentation of any treatments & extenuating circumstances including Concerns Regarding Discharge (functional status, medication knowledge or non-compliance, living conditions, etc.) that warrant an admission rather than observation: serial lab exams IV fluids clear liquids GI evaluation medication adjustment continuing care discharge planning PA/UPHOLSTERER OUTSIDE Co-Sign Statement Statement: ED Attending supervision documentation- x I saw and evaluated the patient. I have also reviewed all the pertinent lab results and diagnostic results. I agree with the findings and the plan of care as documented in the PA's/UPHOLSTERER OUTSIDE's documentation. [] I have reviewed the ED Record and agree with the PA's/UPHOLSTERER OUTSIDE's documentation. [] Additions or exceptions (if any) to the PAs/UPHOLSTERER OUTSIDE's note and plan are summarized below: [] (LISETTE SHARMA,ELOY) Critical Care Note Critical Care Note Critical Care Time: non-applicable (JONATHAN SHARMA,GINGER)
--- NOTE | 2016-05-06 08:45 | NUR ---
DR OSORIO AT BEDSIDE.
--- NOTE | 2016-05-06 09:23 | History & Physical ---
FANNY STUART 05/06/16 0922: General Information and HPI MD Statement: I have seen and personally examined MARILYN PERRY and documented this H&P. The patient is a 89 year old M who presented with a patient stated chief complaint of [GI bleed]. Source of Information: patient Exam Limitations: no limitations History of Present Illness: Patient is an 89-year-old male with history of hypertension, essential thrombocythemia, hyperlipidemi, non-ST elevation myocardial infarction ( angioplasty/stent in the past), inferior wall DC recently status post cardiac cath in the [facility], oral cancer (s/p resection and radiation in his 50s with residual right ear deafness), right sided carotid endarterectomy, falls, and history of GI bleed BIBA from home after noting a streak of blood stool down his leg early in the morning. Patient reported that he woke up from his sleep and felt an adjunct to go to the bathroom but upon walking to the bathroom he saw a track of blood smeared stool down his lower limb. He denies any blood in urine or vomiting blood. He takes blood thinners for coronary artery disease and history of stents and has had an episode of GI bleeding in the past. Patient denies any abdominal pain associated with the blood in stool, he has no any fevers or chills, no nausea or vomiting and is having a very good appetite and is asking to eat. He denies any lightheadedness dizziness shortness of breath or palpitations. Allergies/Medications Allergies: Coded Allergies: NO KNOWN ALLERGIES (02/07/16) Home Med list Amlodipine Besylate (Norvasc) 5 MG TABLET 1 TAB PO DAILY BP (Reported) Anagrelide Hydrochloride (Agrylin) 0.5 MG CAPSULE 1 CAP PO BID BLOOD THINNER (Reported) Aspirin (Aspirin*) 81 MG TAB.CHEW 1 TAB PO DAILY HEART HEALTH (Reported) Atorvastatin Calcium 80 MG TABLET 1 TAB PO DAILY CHOLESTEROL (Reported) Dutasteride (Avodart) 0.5 MG CAPSULE 1 CAP PO DAILY BPH (Reported) Ferrous Sulfate 325 MG (65 MG IRON) TABLET 1 TAB PO TID ANEMIA (Reported) Metoprolol Tartrate (Lopressor) 50 MG TABLET 1 TAB PO BID HEART (Reported) Rivastigmine (Exelon) 9.5 MG/Patch PAT 1 PAT TOP DAILY DEMENTIA (Reported) Tamsulosin HCl 0.4 MG CAP.ER.24H 1 CAP PO DAILY BPH (Reported) Past History Travel History Traveled to [place] past 21 day No Medical History Neurological: dementia EENT: R ear deafness post-operatively Cardiovascular: hypertension, hyperlipidemia, mitral regurgitation Respiratory: NONE Gastrointestinal: NONE Hepatic: NONE Renal: benign prost hyperplasia, LEG BAG, PT UNSURE WHY Musculoskeletal: FEMORAL ARTHROPLASTY Psychiatric: NONE Endocrine: NONE Blood Disorders: NONE Cancer(s): ORAL CANCER 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 MOTHER (Hypertension). Psychosocial History Who Do You Live With? spouse Services at Home: Nursing Primary Language: [place] ETOH Use: denies use Illicit Drug Use: denies illicit drug use Functional Ability ADLs Independent: dressing, eating, toileting, bathing. Ambulation: cane, walker IADLs Independent: shopping, housework, finances, food prep, telephone, transportation , medication admin. Review of Systems Review of Systems Constitutional: Denies: chills, fever. EENTM: Denies: blurred vision, double vision. Cardiovascular: Denies: chest pain, palpitations. Respiratory: Denies: cough, short of breath. GI: Reports: see HPI, bloody stool. Denies: abdominal pain. Genitourinary: Denies: no symptoms. Musculoskeletal: Denies: no symptoms. Hematologic/Endocrine: Denies: bruising, bleeding. All Other Systems: Reviewed and Negative Exam & Diagnostic Data Last 24 Hrs of Vital Signs/I&O Vital Signs Date Time Temp Pulse Resp B/P Pulse O2 O2 Flow FiO2 Ox Delivery Rate 05/06 1031 97.1 62 20 136/70 96 Room Air 05/06 0911 97.0 61 20 139/70 95 Room Air 05/06 0743 96 Room Air 05/06 0707 96.6 61 20 129/71 96 Room Air Intake & Output 05/06 1600 05/06 0800 05/06 0000 Intake Total Output Total Balance Patient 140 lb Weight Physical Exam General Appearance Alert, Oriented X3, Cooperative, No Acute Distress Skin No Rashes HEENT Atraumatic, Mucous Membr. moist/pink Neck Supple, No JVD Cardiovascular Regular Rate, Normal S1, Normal S2, systolic murmur 2/6 more on the aortic area Lungs Clear to Auscultation, Normal Air Movement Abdomen Normal Bowel Sounds, Soft, No Tenderness, No Masses Neurological Normal Speech, Normal Tone Extremities No Clubbing, No Cyanosis, No Edema Vascular Normal Pulses Last 24 Hrs of Labs/Gurpreet: Laboratory Tests 05/06/16826: Urinalysis LIGHT H, Urine Color YEL, Urine Clarity HAZY H, Urine pH 7.0, Ur Specific [place] 1.015, Urine Protein 30 H, Urine Ketones NEG, Urine Nitrite NEG, Urine Bilirubin NEG, Urine Urobilinogen 0.2, Ur Leukocyte Esterase SMALL H , Ur Microscopic SEDIMENT EXAMINED, Urine RBC 5-10 H, Urine WBC 15-25 H, Ur Epithelial Cells RARE, Urine Crystals 1+ CA OX H, Hyaline Casts RARE H, Urine Mucus FEW, Urine Hemoglobin SMALL H, Urine Glucose NEG 05/06/16 0740: Anion Gap 10, Estimated GFR > 60, BUN/Creatinine Ratio 21.1, Glucose 94, Calcium 9.7, Total Bilirubin 0.6, AST 30, ALT 32, Alkaline Phosphatase 105, Troponin I 0.01, Total Protein 6.3, Albumin 3.9, Globulin 2.4, Albumin/Globulin Ratio 1.6, PT 12.7 H, INR 1.21 H, CBC w Diff NO MAN DIFF REQ, RBC 4.32 L, MCV 95.1 H, MCH 31.4 H, RDW 18.4 H, MPV 8.3, Gran % 73.2, Lymphocytes % 13.3 L, Monocytes % 2.6, Eosinophils % 9.7 H, Basophils % 1.2, Absolute Granulocytes 11.1 H, Absolute Lymphocytes 2.0, Absolute Monocytes 0.4, Absolute Eosinophils 1.5, Absolute Basophils 0.2, PUBS MCHC 33.0 Microbiology 05/06 826 URINE ROUT: Urine Culture - RECD Diagnostic Data EKG Results Normal sinus rhythm normal axis regular not ST-T wave changes Assessment/Plan Assessment: 89 years old gentleman with extensive past medical history coronary artery disease status post stents on 2 oral blood thinning medications who is presenting with an episode of jed blood in stool bright red associated with abdominal pain nausea or vomiting and the patient not complaining of any shortness of breath palpitation or chest pain and presenting while hemodynamically stable. Problem list GI bleeding Hypertension Hyperlipidemia BPH We will admit the patient to general medicine floor, vital signs every shift, guaic all stools, IV pantoprazole 40 mg daily, 2 large-bore peripheral lines, crossmatch, serial CBC every 8 hours, start on clear liquid and GI consult. Hold blood thinners, hold antihypertensive medications and restart with hypertension As Ranked By This Provider Problem List: 1. GI bleed 2. Leukocytosis 3. HTN (hypertension) 4. CAD (coronary artery disease) Core Measures/Miscellaneous Acute Coronary Syndrome ACS Diagnosis: No Cerebrovascular Accident CVA/TIA Diagnosis: No Congestive Heart Failure CHF Diagnosis: No Venous Thromboembolism VTE Risk Factors: Acute medical illness, Age > 40 VTE Prophylaxis Ordered Inpt: Mechanical (ALPS/TEDS) No Mech VTE prophylaxis d/t: No contraindications No VTE Pharm Prophylaxis d/t: Active bleeding VTE Diagnosis: No VTE Type: NONE VTE Confirmed by (Test): NONE Severe Sepsis Severe Sepsis Present: No Septic Shock Septic Shock Present: No Miscellaneous Documentation Attending Case Discussed With: DANIEL OSORIO MD Primary Care Physician: DANIEL OSORIO MD Patient sees these Specialists Dr. Mejia Gtz Level of Patient Care: General Medicine Consults Needed: Consulting Specialty: Gastroenterology Consulting Physician: Dr. Thomas Reason for Consult: GI Bleed Resident Review Statement Resident Statement: examined this patient, My review and recommendations as above DANIEL OSORIO MD 05/06/16 1442: Attending Review Statement Attending Statement Attending MD Statement: examined this patient, discuss w/resident/PA/RVDA MASTER CERTIFIED RV TECHNICIAN, agreed w/resident/PA/RVDA MASTER CERTIFIED RV TECHNICIAN, reviewed EMR data (avail) Attending Assessment/Plan: 89-year-old with history of hypertension, dyslipidemia, coronary artery disease status post stent, carotid stenosis and dementia presenting with FL BPR this morning. He has had a similar bleeding in the past with a negative colonoscopy. Hemoglobin is stable on admission however he does have leukocytosis of significance. At this time. Cultures urine and blood to rule out infection and in the meantime hold blood thinners also get a GI evaluation for possible inpatient colonoscopy. Plan Keep nothing by mouth GI consult Check urine culture and blood cultures CBC every 8 hours Informed GI of any active bleed Hold all blood thinners and resume other home meds ALPS for DVT prophylaxis
--- NOTE | 2016-05-06 09:45 | NUR ---
GI MED STUDENT AT BEDSIDE. PLAN IS FOR ADMISSION. Informed waiting has been performed.
[2016-05-06 09:53] LABS: PT 12.7 SEC (9.4-12.5)
--- NOTE | 2016-05-06 10:00 | NUR ---
HOUSESTAFF IN FOR EVAL
--- NOTE | 2016-05-06 10:13 | Cons- Gastroenterology ---
General Information and HPI Consulting Request Date of Consult: 05/06/16 Requested By: DANIEL DICKEY MD Reason for Consult: BRBPR Source of Information: old records Exam Limitations: clinical condition, confusion, dementia, poor historian History of Present Illness: 89-year-old male, poor historian, *DNR/DNI/OBS/HLD/HTN/PVD post R CEA/Ex-30-pack -year cigarette smoker, stopped 1976/history of MR, TR, & mod to severe /ASHD with history of inferior lateral [place] and history of bare metal stent left Cx 10/2014/PTCA/NSTEMI 09/03/2015/primary thrombocytosis, on ASA 81 mg daily & Agrylin/BPH post multiple TURP/chronic indwelling Carvalho/history of falls post right hip hemiarthroplasty 01/12/2015/recently in [facility] 04/04/2016 - 04/08/2016 with falls and troponin bump 0.57, felt to be demand ischemia/remote oral CA, 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 It is difficult for the patient to qualify or quantify the above. He claims the bleeding was painless in nature, without any abdominal or rectal pain. It was not associated with any stool. There was no melena. He denies any preceding diarrhea, constipation, obstipation, tenesmus, or change in stool caliber. There was no associated chest pain, shortness of breath, or LOC. He denied any upper GI symptoms, and specifically denied any nausea, vomiting, reflux, odynophagia, dysphagia, early satiety, or hematemesis. He denies taking any NSAIDs or EtOH. He was hemodynamically stable without any orthostatic changes, and was actually hypertensive. He was not tachycardic. He was afebrile with O2 sat RA 96%. He was admitted to General Medicine. Prior to addressing the patient's code status, the medical service decided to defer a CTA , as there was no recurrent active bleeding in the ER. The patient apparently was empirically put on IV Protonix 40 mg daily by the medical house staff. The patient is currently very confused & pleasantly forgetful, yet A & O x 2 ( not to time). He cannot recall how many children he has, and thinks his mother is still alive. *When the patient came upstairs from the ER, he had another 350 cc of asymptomatic BRBPR. *The medical housestaff contacted the patient's / POA, Glenna Sow ([phone]), on 05/06/2016, at approximately 2:40 p.m. I spoke to her and she stated the patient is DNR/DNI. She is agreeable to transfusion with blood products as needed, but otherwise, does not want any aggressive endoscopic intervention, radiographic input, or surgical input, in view of his dementia. 02/11/2011: Baseline colonoscopy to cecum per Dr. Giron- fair prep, but polyps < 1 cm could have been obscured. No colitis, no diverticula, no angiodysplasias seen (*although 07/25/15: CT pelvis w/o contrast: + diverticula) 08/18/2014: Covering inpatient GI consultation done by Dr. Metcalf for mild BRBPR. 08/20/2014: Covering colonoscopy per Dr. Jaya Valentino to hepatic flexure- poor prep with brown stool, with consideration for follow up with Dr. Giron for repeat colonoscopy after extended prep as an outpatient. 01/28/2015: The patient saw Dr. Giron in the office in follow-up with *plans for conservative therapy with Fe & to only repeat colonoscopy if HCT dropped. The patient was on Coumadin then, with recommendations to resume Plavix at that time, if needed (*the patient is no longer on either of these, just ASA & Agrylin). 05/06/2016: Admission labs 7:40 a.m.- WBC 15.2 (73% gran/11 gran Ab), H/H 13.6/ 41.1, MCV 95.1, PLT 577, glu 94, BUN/Cr 19/0.9, GFR > 60, nl lytes, nl LFTs with alb 3.9, glob 2.4, troponin .01, PT 12.7, INR 1.21 05/06/2016: 1:26 p.m.- WBC 13K, H/H 12.4/38.3, PLT 526 05/06/2016: EKG- NSR @ 66, normal axis, 1st degree AVB, borderline prolonged QT interval, unifocal PVC, NSST. Allergies/Medications Allergies: Coded Allergies: NO KNOWN ALLERGIES (02/07/16) Home Med List: Amlodipine Besylate (Norvasc) 5 MG TABLET 1 TAB PO DAILY BP (Reported) Anagrelide Hydrochloride (Agrylin) 0.5 MG CAPSULE 1 CAP PO BID BLOOD THINNER (Reported) Aspirin (Aspirin*) 81 MG TAB.CHEW 1 TAB PO DAILY HEART HEALTH (Reported) Atorvastatin Calcium 80 MG TABLET 1 TAB PO DAILY CHOLESTEROL (Reported) Dutasteride (Avodart) 0.5 MG CAPSULE 1 CAP PO DAILY BPH (Reported) Ferrous Sulfate 325 MG (65 MG IRON) TABLET 1 TAB PO TID ANEMIA (Reported) Metoprolol Tartrate (Lopressor) 50 MG TABLET 1 TAB PO BID HEART (Reported) Rivastigmine (Exelon) 9.5 MG/Patch PAT 1 PAT TOP DAILY DEMENTIA (Reported) Tamsulosin HCl 0.4 MG CAP.ER.24H 1 CAP PO DAILY BPH (Reported) Current Medications: Current Medications Sig/Tatyana Start time Last Medication Dose Route Stop Time Status Admin Acetaminophen 650 MG Q6P PRN 05/06 1145 AC PO Acetaminophen 1,000 MG Q6P PRN 05/06 1145 AC IV Atorvastatin Calcium 80 MG DAILY 05/07 1000 DC PO Atorvastatin Calcium 80 MG 1700 05/06 1700 AC PO Morphine Sulfate 1 MG Q6-PRN PRN 05/06 1145 AC IV Pantoprazole Sodium 40 MG DAILY 05/06 1045 AC 05/06 IV 1313 Rivastigmine 9.5 MG DAILY 05/07 1000 DC TOP Rivastigmine 9.5 MG DAILY 05/06 1300 AC 05/06 TOP 1313 Tamsulosin HCl 0.4 MG DAILY 05/07 1000 DC PO Tamsulosin HCl 0.4 MG DAILY 05/06 1300 AC 05/06 PO 1313 Past History Travel History Traveled to [place] past 21 day No Medical History Blood Transfusion Hx: No (unsure- none in [employer], computer) Neurological: dementia EENT: hearing loss, R ear deafness post-operatively Cardiovascular: aortic stenosis, CAD, hypertension, hyperlipidemia, mitral regurgitation Respiratory: NONE Gastrointestinal: past hx rectal bleed Hepatic: NONE Renal: benign prost hyperplasia (mult TURP- benign), INDWELLING CARVALHO WITH LEG BAG, PT UNSURE WHY, hx UTI/urethral trauma, cystitis Musculoskeletal: degen joint disease, falls, fracture (R hip), osteoarthritis, R FEMORAL ARTHROPLASTY Psychiatric: NONE Endocrine: NONE Blood Disorders: essential thrombocytosis Cancer(s): 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 MOTHER (unknown heart condition). Psychosocial History Where Do You Live? Home Who Do You Live With? spouse Services at Home: Nursing Primary Language: Slovenian Smoking Status: Former Smoker (ex 30 pk yr, D/C 1974) ETOH Use: denies use Illicit Drug Use: denies illicit drug use Living Will? yes Power of Apartment Maintenance/HCP? yes Name of POA/HCP: pt's , Glenna Sow Other Social History: . Remote [id number] cigarette smoker, stopped 1974. No EtOH. No drugs. Retired from [employer]. 3 sons-alive and well. The patient lives with his /POA, Glenna Sow, who is his POA ([phone]). Functional Ability ADLs Needs Assist: dressing, eating, toileting, bathing. Ambulation: cane, walker IADLs Needs Assist: shopping, housework, finances, food prep, telephone, transportation, medication admin. Employment History Employment: Retired Profession/Employer: retired information systems supervisor ECHO Results (as available) Date of last Echo 04/06/16 EF% 45 Review of Systems Review of Systems: Full 14 point review of systems otherwise noncontributory, and as above, although the patient is not a reliable historian. Review of Systems Constitutional: Denies: chills, diaphoresis, fever, malaise, weakness, unexplained weight loss. EENTM: Reports: hearing changes (deaf R ear). Denies: blurred vision, double vision, visual changes, eye pain, eye drainage, eye tearing, icterus, ear discharge, ear pain, ear redness, nasal congestion, epistaxis, nasal pain, throat pain, throat swelling, mouth pain, tooth pain. Cardiovascular: Denies: chest pain, edema, orthopena, palpitations, peripheral edema, syncope. Respiratory: Denies: cough, hemoptysis, orthopnea, short of breath, sputum production, stridor, wheezing. GI: Reports: bloody stool. Denies: abdominal pain, bloating, constipation, diarrhea , distention, bowel incontinence, melena, nausea, changes in stool, vomiting, steatorrhea. Genitourinary: Reports: frequency, nocturia, urgency. Denies: no symptoms (chronic indwelling Carvalho), discharge, dysuria, hematuria, hesitation, pain. Musculoskeletal: Reports: joint pain (DJD knees). Denies: back pain, gout, joint swelling, muscle pain, muscle stiffness, neck pain. Skin: Denies: cysts, change in skin color, change in hair/nails, dryness, erythema, jaundice, lesions, lymphangitis, lumps, moles, rash. Neurological/Psychological: Reports: dementia. Denies: anxiety, ataxia, cognitive dysfunction, confusion, depressed, emotional problems, headache, numbness, paresthesia, pre-existing deficit, petit mal seizures, tingling, tremors, tonic-clonic seizures, unable to move lower ext, unable to move upper ext, weakness. Hematologic/Endocrine: Denies: bruising, bleeding, polyuria, polydipsia. Immunologic/Allergic: Denies: splenectomy, HIV/AIDS, lymphadenopathy. All Other Systems: Reviewed and Negative Exam & Diagnostic Data Vital Signs and I&O Vital Signs Date Time Temp Pulse Resp B/P Pulse O2 O2 Flow FiO2 Ox Delivery Rate 05/06 1402 97.5 66 20 122/72 95 05/06 1057 97.5 60 20 120/70 95 Room Air 05/06 1031 97.1 62 20 136/70 96 Room Air 05/06 0911 97.0 61 20 139/70 95 Room Air 05/06 0743 96 Room Air 05/06 0707 96.6 61 20 129/71 96 Room Air Intake & Output 05/06 1600 05/06 0400 05/05 1600 05/05 0400 05/04 1600 05/04 0400 Intake Total Output Total 1050 Balance -1050 Output, Stool 350 Output, Urine 700 Patient 160 lb Weight Physical Exam: Well-developed, well-nourished, thin elderly male, pleasantly confused & forgetful, in no apparent distress. Sclera anicteric. Conjunctiva pink. Oropharynx clear, without residual lesions. No oral thrush. No aphthous ulcers. There is no adenopathy, thyromegaly, or JVD. No peripheral stigmata of inflammatory bowel disease or chronic liver disease on exam. No spiders on the anterior chest wall. No gynecomastia. No CVA tenderness. Lungs: clear to A&P. Heart exam: regular rate rhythm, S1 and S2, with III/ systolic murmur. Abdominal exam: normal bowel sounds, soft belly, nontender, without guarding or rebound. No mass. No organomegaly. No fluid shift. No pulsatile mass. No epigastric bruit. Digital rectal exam: done by myself 05/06/2016: +BRB, obviously OB positive, no mass, no external hemorrhoids, no fissure, normal sphincter tone, smooth mildly enlarged prostate, without nodule. Extremities: without C, C, or E. +DJD. No palpable cords. No palmar erythema. No Dupuytren's contractures. Abrasions on back of neck, with scabbing of the forearms bilaterally. Distal pulses 1+ bilaterally. DTRs 2+ bilaterally. Alert and oriented x 2 (not to time). No tremor. No asterixis. Results Pertinent Lab Results: Laboratory Tests 05/06 05/06 1326 0827 Hematology CBC w Diff NO MAN DIFF REQ WBC (4.8 - 10.8 /CUMM) 13.0 H RBC (4.70 - 6.10 /CUMM) 4.01 L Hgb (14.0 - 18.0 G/DL) 12.4 L Hct (42 - 52 %) 38.3 L MCV (80.0 - 94.0 FL) 95.4 H MCH (27.0 - 31.0 PG) 31.0 RDW (11.5 - 14.5 %) 18.4 H Plt Count (130 - 400 /CUMM) 526 H MPV (7.4 - 10.4 FL) 8.3 Gran % (42.2 - 75.2 %) 78.6 H Lymphocytes % (20.5 - 51.1 %) 9.4 L Monocytes % (1.7 - 9.3 %) 2.9 Eosinophils % (0 - 5 %) 8.5 H Basophils % (0.0 - 2.0 %) 0.6 Absolute Granulocytes (1.4 - 6.5 /CUMM) 10.2 H Absolute Lymphocytes (1.2 - 3.4 /CUMM) 1.2 Absolute Monocytes (0.10 - 0.60 /CUMM) 0.4 Absolute Eosinophils (0.0 - 0.7 /CUMM) 1.1 Absolute Basophils (0.0 - 0.2 /CUMM) 0.1 PUBS MCHC (33.0 - 37.0 G/DL) 32.5 L Urines Urinalysis LIGHT H Urine Color (YEL,AMB,STR) YEL Urine Clarity (CLEAR) HAZY H Urine pH (5.0 - 8.0) 7.0 Ur Specific [place] (1.001 - 1.035) 1.015 Urine Protein (NEG,<30 MG/DL) 30 H Urine Ketones (NEG) NEG Urine Nitrite (NEG) NEG Urine Bilirubin (NEG) NEG Urine Urobilinogen (0.1 - 1.0 EU/dl) 0.2 Ur Leukocyte Esterase (NEG) SMALL H Ur Microscopic SEDIMENT EXAMINED Urine RBC (0 - 5 /HPF) 5-10 H Urine WBC (0 - 2 /HPF) 15-25 H Ur Epithelial Cells (NONE,FEW) RARE Urine Crystals 1+ CA OX H Hyaline Casts (0/LPF) RARE H Urine Mucus (FEW,NONE) FEW Urine Hemoglobin (NEG) SMALL H Urine Glucose (N MG/DL) NEG 05/06 0740 Chemistry Sodium (137 - 145 mmol/L) 142 Potassium (3.5 - 5.1 mmol/L) 4.4 Chloride (98 - 107 mmol/L) 102 Carbon Dioxide (22 - 30 mmol/L) 30 Anion Gap (5 - 16) 10 BUN (9 - 20 mg/dL) 19 Creatinine (0.7 - 1.2 mg/dL) 0.9 Estimated GFR (>60 ml/min) > 60 BUN/Creatinine Ratio (7 - 25 %) 21.1 Glucose (65 - 99 mg/dL) 94 Calcium (8.4 - 10.2 mg/dL) 9.7 Total Bilirubin (0.2 - 1.3 mg/dL) 0.6 AST (17 - 59 U/L) 30 ALT (21 - 72 U/L) 32 Alkaline Phosphatase (< 127 U/L) 105 Troponin I (<0.11 ng/ml) 0.01 Total Protein (6.3 - 8.2 g/dL) 6.3 Albumin (3.5 - 5.0 g/dL) 3.9 Globulin (1.9 - 4.2 gm/dL) 2.4 Albumin/Globulin Ratio (1.1 - 2.2 %) 1.6 Coagulation PT (9.4 - 12.5 SEC) 12.7 H INR (0.90 - 1.17) 1.21 H Hematology CBC w Diff NO MAN DIFF REQ WBC (4.8 - 10.8 /CUMM) 15.2 H RBC (4.70 - 6.10 /CUMM) 4.32 L Hgb (14.0 - 18.0 G/DL) 13.6 L Hct (42 - 52 %) 41.1 L MCV (80.0 - 94.0 FL) 95.1 H MCH (27.0 - 31.0 PG) 31.4 H RDW (11.5 - 14.5 %) 18.4 H Plt Count (130 - 400 /CUMM) 577 H MPV (7.4 - 10.4 FL) 8.3 Gran % (42.2 - 75.2 %) 73.2 Lymphocytes % (20.5 - 51.1 %) 13.3 L Monocytes % (1.7 - 9.3 %) 2.6 Eosinophils % (0 - 5 %) 9.7 H Basophils % (0.0 - 2.0 %) 1.2 Absolute Granulocytes (1.4 - 6.5 /CUMM) 11.1 H Absolute Lymphocytes (1.2 - 3.4 /CUMM) 2.0 Absolute Monocytes (0.10 - 0.60 /CUMM) 0.4 Absolute Eosinophils (0.0 - 0.7 /CUMM) 1.5 Absolute Basophils (0.0 - 0.2 /CUMM) 0.2 PUBS MCHC (33.0 - 37.0 G/DL) 33.0 Imaging/Other Studies: 05/06/2016: EKG- NSR @ 66, normal axis, 1st degree AVB, borderline prolonged QT interval, unifocal PVC, NSST. [*No other imaging studies obtained on admission]. Assessment/Plan Assessment/Recommendations: 89-year-old male, poor historian, *DNR/DNI/OBS/HLD/HTN/PVD post R CEA/Ex-30-pack -year cigarette smoker, stopped 1976/history of MR, TR, & mod to severe /ASHD with history of inferior lateral [place] and history of bare metal stent left Cx 10/2014/PTCA/NSTEMI 09/03/2015/primary thrombocytosis, on ASA 81 mg daily & Agrylin/BPH post multiple TURP/chronic indwelling Carvalho/history of falls post right hip hemiarthroplasty 01/12/2015/recently in [facility] 04/04/2016 - 04/08/2016 with falls and troponin bump 0.57, felt to be demand ischemia/remote oral CA, 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 It is difficult for the patient to qualify or quantify the above. He claims the bleeding was painless in nature, without any abdominal or rectal pain. It was not associated with any stool. There was no melena. He denies any preceding diarrhea, constipation, obstipation, tenesmus, or change in stool caliber. There was no associated chest pain, shortness of breath, or LOC. He denied any upper GI symptoms, and specifically denied any nausea, vomiting, reflux, odynophagia, dysphagia, early satiety, or hematemesis. He denies taking any NSAIDs or EtOH. He was hemodynamically stable without any orthostatic changes, and was actually hypertensive. He was not tachycardic. He was afebrile with O2 sat RA 96%. He was admitted to General Medicine. Prior to addressing the patient's code status, the medical service decided to defer a CTA , as there was no recurrent active bleeding in the ER. The patient apparently was empirically put on IV Protonix 40 mg daily by the medical house staff. The patient is currently very confused & pleasantly forgetful, yet A & O x 2 ( not to time). He cannot recall how many children he has, and thinks his mother is still alive. *When the patient came upstairs from the ER, he had another 350 cc of asymptomatic BRBPR. *The medical housestaff contacted the patient's / POA, Glenna Sow ([phone]), on 05/06/2016, at approximately 2:40 p.m. I spoke to her and she stated the patient is DNR/DNI. She is agreeable to transfusion with blood products as needed, but otherwise, does not want any aggressive endoscopic intervention, radiographic input, or surgical input, in view of his dementia. 02/11/2011: Baseline colonoscopy to cecum per Dr. Giron- fair prep, but polyps < 1 cm could have been obscured. No colitis, no diverticula, no angiodysplasias seen (*although 07/25/15: CT pelvis w/o contrast: + diverticula) 08/18/2014: Covering inpatient GI consultation done by Dr. Metcalf for mild BRBPR. 08/20/2014: Covering colonoscopy per Dr. Jaya Valentino to hepatic flexure- poor prep with brown stool, with consideration for follow up with Dr. Giron for repeat colonoscopy after extended prep as an outpatient. 01/28/2015: The patient saw Dr. Giron in the office in follow-up with *plans for conservative therapy with Fe & to only repeat colonoscopy if HCT dropped. The patient was on Coumadin then, with recommendations to resume Plavix at that time, if needed (*the patient is no longer on either of these, just ASA & Agrylin). 05/06/2016: Admission labs 7:40 a.m.- WBC 15.2 (73% gran/11 gran Ab), H/H 13.6/ 41.1, MCV 95.1, PLT 577, glu 94, BUN/Cr 19/0.9, GFR > 60, nl lytes, nl LFTs with alb 3.9, glob 2.4, troponin .01, PT 12.7, INR 1.21 05/06/2016: 1:26 p.m.- WBC 13K, H/H 12.4/38.3, PLT 526 05/06/2016: EKG- NSR @ 66, normal axis, 1st degree AVB, borderline prolonged QT interval, unifocal PVC, NSST. *Clinically, the patient is having a lower GI bleed. He has a normal BUN. I sincerely doubt a rapid transit upper GI bleed. The differential diagnosis for the above includes diverticular bleed (diverticula present on previous CT), vs. angiodysplasias of the GI tract (associated with the patient's ; Heyde's syndrome). The patient seems to be bleeding more than from just internal hemorrhoids. There is nothing to suggest a colitis. Doubt neoplasm. A small bowel source would be less likely. *As per my discussion with the patient's /POA, Glenna Sow, as above, the patient is DNR/DNI. She does not want any aggressive intervention, in terms of endoscopic workup, radiographic studies, or surgery, in view of his dementia. She is agreeable to transfusions as needed. Therefore, would not bother with CTA, moving patient to ICU, bowel prep for colonoscopy, surgical consultation, etc. SUGGEST: Clear liquids and advance diet as tolerated. Serial CBC as per medical team. Transfuse as needed. 2 large bore IV. Strict I/O's. Supplemental oxygen as needed. Keep Hgb > 8 with history of ASHD. Aspirin and Agrylin on hold for now, as per medical team. No aggressive GI intervention as per patient's POA. The patient's /POA was given my office number. The above was clearly communicated with the medical house staff, who spoke with Dr. Dickey. Further GI follow-up as needed. Problem List: 1. Lower GI bleed 2. Diverticula of colon 3. Aortic stenosis 4. ASHD (arteriosclerotic heart disease) 5. Essential thrombocythemia Copies To: KOKI SHARMA,SUDHA Garnett; JENNIFER SALVADOR MD; DEVON SHARMA,[facility] Consult Acknowledgment - Thank you for your consult request.
--- NOTE | 2016-05-06 10:15 | NUR ---
PT ADMITTED TO ROOM 236
--- NOTE | 2016-05-06 10:19 | NUR ---
REPORT TO DIOGO LOONEY ON 2NA.
--- NOTE | 2016-05-06 10:37 | NUR ---
2ND LARGE BORE IV EST PER HOUSESTAFF REQUEST.
--- NOTE | 2016-05-06 10:42 | NUR ---
PT TO FLOOR VIA STRETCHER. ALL PAPERWORK SENT. PT'S TOOK HOME SOME BELONGINGS. REST OF BELONGINGS SENT WITH PT. CLINICAL STATUS UNCHANGED.
[2016-05-06 10:57] VITALS: BP 120/70
--- NOTE | 2016-05-06 11:30 | NUR ---
ARRIVED TO FLOOR FROM ED. A & PLEASANTLY FORGETFUL. ON RA. VSS. DENIES PAIN OR ANY COMPLAINTS. OPEN AREA TO BACK OF NECK AND GROIN EXCORIATED BUT OTHERWISE SKIN INTACT. PREHOSPITAL CARVALHO IN PLACE DRAINING CLEAR YELLOW URINE. IV X [address] TO LEFT ARM. ORIENTED TO CALL SYSTEM. WILL MONITOR.
--- NOTE | 2016-05-06 12:31 | NUR ---
PT AMBULATED TO BATHROOM FOR BOWEL MOVEMENT. 350ML OF STEVE RED BLOOD OBTAINED. REPORTED TO RESIDENT SADE. CBC ORDERED FOR 1400. WILL MONITOR.
[2016-05-06 13:52] LABS: ABSOLUTE BASOPHIL COUNT 0.1 /CUMM (0.0-0.2); ABSOLUTE EOSINOPHIL COUNT 1.1 /CUMM (0.0-0.7); ABSOLUTE GRANULOCYTE CT 10.2 /CUMM (1.4-6.5); ABSOLUTE LYMPH COUNT 1.2 /CUMM (1.2-3.4); ABSOLUTE MONOCYTE COUNT 0.4 /CUMM (0.10-0.60); BASOPHIL % 0.6 % (0.0-2.0); EOSINOPHIL % 8.5 % (0-5); GRANULOCYTE % 78.6 % (42.2-75.2); HEMATOCRIT 38.3 % (42-52); MEAN CORPUSCULAR HGB CONC 32.5 G/DL (33.0-37.0); MEAN CORPUSCULAR VOLUME 95.4 FL (80.0-94.0); MEAN PLATELET VOLUME 8.3 FL (7.4-10.4); PLATELET COUNT 526 /CUMM (130-400); RBC DISTRIBUTION WIDTH 18.4 % (11.5-14.5); RED BLOOD CELL CT 4.01 /CUMM (4.70-6.10)
[2016-05-06 14:02] VITALS: BP 122/72
--- NOTE | 2016-05-06 14:37 | Admission Certification ---
Admission Certification Certification Statement - As attending physician, I certify that at the time of - admission, based on clinical presentation, severity of - symptoms, need for further diagnostic testing and - therapeutic interventions, and risk of adverse outcomes - without in-hospital treatment, in my clinical assessment, - this patient requires an acute hospital stay for a minimum - of two nights or longer. I have also considered psychsocial - factors such as support system, advanced age, financial - issues, cognitive issues, and failed out-patient treatments, - past re-admission history, safety of patient, and lack of - compliance as applicable. Specific rationale supporting this admission is: GI bleed
[2016-05-06 22:35] LABS: ABSOLUTE BASOPHIL COUNT 0.1 /CUMM (0.0-0.2); ABSOLUTE EOSINOPHIL COUNT 0.9 /CUMM (0.0-0.7); ABSOLUTE GRANULOCYTE CT 9.8 /CUMM (1.4-6.5); ABSOLUTE MONOCYTE COUNT 0.4 /CUMM (0.10-0.60); EOSINOPHIL % 7.3 % (0-5)
[2016-05-06 22:38] LABS: ABSOLUTE LYMPH COUNT 1.5 /CUMM (1.2-3.4); BASOPHIL % 0.7 % (0.0-2.0); MEAN CORPUSCULAR HGB 31.1 PG (27.0-31.0); MEAN CORPUSCULAR HGB CONC 33.1 G/DL (33.0-37.0); MEAN CORPUSCULAR VOLUME 94.1 FL (80.0-94.0); MEAN PLATELET VOLUME 8.1 FL (7.4-10.4); PLATELET COUNT 561 /CUMM (130-400); RBC DISTRIBUTION WIDTH 18.2 % (11.5-14.5); RED BLOOD CELL CT 3.53 /CUMM (4.70-6.10); WHITE BLOOD CELL COUNT 12.7 /CUMM (4.8-10.8)
[2016-05-06 22:39] LABS: HEMATOCRIT 33.2 % (42-52)
[2016-05-06 23:01] VITALS: BP 120/62
[2016-05-07 06:42] VITALS: BP 120/60
--- NOTE | 2016-05-07 07:12 | PN- Housestaff ---
Subjective Follow-up For: blood per rectum Subjective: I saw and examined the patient at bedside, awake and oriented in no distress. Patient appears to be forgetful and does not recall bleeding from rectum yesterday. States that he is waiting for his to come so they can hav breakfast together. Denies dizziness, SOB, palpitation, chest pain, bloody stool, abdominal pain. Review of Systems Constitutional: Denies: chills, fever, weakness. EENTM: Reports: no symptoms. Cardiovascular: Reports: no symptoms. Respiratory: Reports: no symptoms. Gastrointestinal: Reports: no symptoms. Genitourinary: Reports: no symptoms. Musculoskeletal: Reports: no symptoms. Skin: Reports: no symptoms. Neurological/Psychological: Reports: no symptoms. Hematologic/Endocrine: Reports: no symptoms. Objective Last 24 Hrs of Vital Signs/I&O Vital Signs Date Time Temp Pulse Resp B/P Pulse O2 O2 Flow FiO2 Ox Delivery Rate 05/07 0642 98.3 65 20 120/60 95 Room Air 05/06 2301 98.1 70 20 120/62 94 Room Air 05/06 1402 97.5 66 20 122/72 95 05/06 1057 97.5 60 20 120/70 95 Room Air 05/06 1031 97.1 62 20 136/70 96 Room Air Intake & Output 05/07 1600 05/07 0800 05/07 0000 Intake Total 360 480 Output Total 325 350 Balance 35 130 Intake, Oral 360 480 Output, Urine 325 350 Patient 72.575 kg Weight Physical Exam General Appearance: Alert, Oriented X3, Cooperative, No Acute Distress Skin: No Rashes, there are excoriated lesions on the upper ytrun, neck and upper extremities. there is a an area of skin breakdown on the posterior lower neck at midline with excoriation, patient reports he has had it for a while and has been scratching it frequently. HEENT: Atraumatic, EOMI Neck: Supple, No JVD Cardiovascular: Regular Rate, Normal S1, Normal S2, 3/6 systolic murmur Lungs: Clear to Auscultation, Normal Air Movement Abdomen: Normal Bowel Sounds, Soft, No Tenderness Neurological: Normal Speech, Normal Tone, 4+/5 strength on all extremities Extremities: No Cyanosis, No Edema, Normal Pulses Vascular: Normal Pulses, Pulses Symmetrical Current Medications: Current Medications Sig/Tatyana Start time Last Medication Dose Route Stop Time Status Admin Acetaminophen 650 MG Q6P PRN 05/06 1145 AC PO Acetaminophen 1,000 MG Q6P PRN 05/06 1145 AC IV Atorvastatin Calcium 80 MG DAILY 05/07 1000 DC PO Atorvastatin Calcium 80 MG 1700 05/06 1700 AC 05/06 PO 1648 Morphine Sulfate 1 MG Q6-PRN PRN 05/06 1145 AC IV Pantoprazole Sodium 40 MG BID 05/06 2200 AC 05/06 IV 2112 Pantoprazole Sodium 40 MG DAILY 05/06 1045 DC 05/06 IV 1313 Rivastigmine 9.5 MG DAILY 05/07 1000 DC TOP Rivastigmine 9.5 MG DAILY 05/06 1300 AC 05/06 TOP 1313 Tamsulosin HCl 0.4 MG DAILY 05/07 1000 DC PO Tamsulosin HCl 0.4 MG DAILY 05/06 1300 AC 05/06 PO 1313 Last 24 Hrs of Lab/Gurpreet Results Last 24 Hrs of Labs/Mics: Laboratory Tests 05/07/16 0620: CBC w Diff MAN DIFF ORDERED, RBC 3.52 L, MCV 94.6 H, MCH 31.4 H, RDW 18.3 H, MPV 8.6, Gran % 75.7 H, Lymphocytes % 13.6 L, Monocytes % 1.9, Eosinophils % 7.5 H, Basophils % 1.3, Absolute Granulocytes 10.4 H, Segmented Neutrophils 77 H, Band Neutrophils 4, Absolute Lymphocytes 1.9, Lymphocytes 11 L, Monocytes 3 , Absolute Monocytes 0.3, Eosinophils 4, Absolute Eosinophils 1.0, Absolute Basophils 0.2, Metamyelocytes 1, Platelet Estimate INCREASED, Poikilocytosis 2+, Anisocytosis 2+, Ovalocytes 1+, PUBS MCHC 33.2 05/06/16 2219: Troponin I < 0.01, CBC w Diff NO MAN DIFF REQ, RBC 3.53 L, MCV 94.1 H, MCH 31.1 H, RDW 18.2 H, MPV 8.1, Gran % 77.0 H, Lymphocytes % 12.1 L, Monocytes % 2.9, Eosinophils % 7.3 H, Basophils % 0.7, Absolute Granulocytes 9.8 H, Absolute Lymphocytes 1.5, Absolute Monocytes 0.4, Absolute Eosinophils 0.9, Absolute Basophils 0.1, PUBS MCHC 33.1 05/06/16 1544: Troponin I 0.01 05/06/16 1326: CBC w Diff NO MAN DIFF REQ, RBC 4.01 L, MCV 95.4 H, MCH 31.0, RDW 18.4 H, MPV 8.3, Gran % 78.6 H, Lymphocytes % 9.4 L, Monocytes % 2.9, Eosinophils % 8.5 H , Basophils % 0.6, Absolute Granulocytes 10.2 H, Absolute Lymphocytes 1.2, Absolute Monocytes 0.4, Absolute Eosinophils 1.1, Absolute Basophils 0.1, PUBS MCHC 32.5 L Assessment/Plan Assessment: Patient is a 89 years old gentleman with PMH of CAD s/p stents on anagrelide and aspirin, who is admitted due to an episode of jed blood in stool associated with abdominal pain nausea or vomiting, denies shortness of breath palpitation or chest pain and has been hemodynamically stable. Patient has had one more episode of 350 ml jed red blood per rectum on the day of admission. GI is on board and talked with POA (), who do not wish aggressive measures including endoscopic workup, radiographic studies or surgeries. Problem list: GI bleeding Possibly lower GI, patient passed jed blood from rectum. Has not had any episode of bleeding since yesterday evening. per POA decision will do conservative management of the GIB, no scoping or imaging or surgeries. * 2 large bore IV lines * IV fluids * monitor H/H and transfuse to keep Hb>8 * O2 supplementation to keep SO2>92% * repeat CBC in am * advanced diet to full liquid Hx of CAD, Hypertension, Hyperlipidemia * medications on hold due to borderline BP * aspirin and agrylin on hold due to GIB, *I talked to Dr. Hayes on the phone today regarding antipatelet medication for the patient, he said stop both aspirin and agrylin. * continue lipitor BPH * continue tamsulosin 0.4 mg daily mild pain pathway DVT px with ALPS DNR DNI Problem List: 1. Rectal bleed 2. Acute blood loss anemia Pain Ratin Pain Location: none Pain Goal: Pain 4 or less Pain Plan: mild pp Tomorrow's Labs & Rationales: CBC (acute blood loss anemia) Consulting Request: Consulting Specialty: Gastroenterology Consulting Physician: Dr. Thomas Reason for Consult: GI Bleed
[2016-05-07 07:58] LABS: ABSOLUTE BASOPHIL COUNT 0.2 /CUMM (0.0-0.2); ABSOLUTE GRANULOCYTE CT 10.4 /CUMM (1.4-6.5); ABSOLUTE LYMPH COUNT 1.9 /CUMM (1.2-3.4); ABSOLUTE MONOCYTE COUNT 0.3 /CUMM (0.10-0.60); BASOPHIL % 1.3 % (0.0-2.0); EOSINOPHIL % 7.5 % (0-5); GRANULOCYTE % 75.7 % (42.2-75.2); HEMATOCRIT 33.3 % (42-52); MEAN CORPUSCULAR HGB 31.4 PG (27.0-31.0); MEAN CORPUSCULAR HGB CONC 33.2 G/DL (33.0-37.0); MEAN CORPUSCULAR VOLUME 94.6 FL (80.0-94.0); MEAN PLATELET VOLUME 8.6 FL (7.4-10.4); PLATELET COUNT 557 /CUMM (130-400); RBC DISTRIBUTION WIDTH 18.3 % (11.5-14.5); RED BLOOD CELL CT 3.52 /CUMM (4.70-6.10); WHITE BLOOD CELL COUNT 13.8 /CUMM (4.8-10.8)
--- NOTE | 2016-05-07 12:53 | PN- Att Addend ---
Attending Addendum Attending Brief Note 89-year-old with history of hypertension, dyslipidemia, coronary artery disease status post stent, carotid stenosis and dementia presenting with PRBPR. He has had a similar bleeding in the past with a negative colonoscopy. The family this time has opted for conservative management and no colonoscopy. Gram-negative rods in the urine and patient has a chronic indwelling Rothman. He appears asymptomatic without fever however he does have mild leukocytosis. At this time we will follow off antibiotics and observe. We will also get cardiology evaluation to reassess the need for dual antiplatelets in a 89-year-old GI bleeder. Plan Get cardiology evaluation to give recommendations regarding need for dual antiplatelets. Follow off antibiotics Monitor CBC daily PT evaluation ALPS for DVT prophylaxis Current Medications Sig/Tatyana Start time Last Medication Dose Route Stop Time Status Admin Acetaminophen 650 MG Q6P PRN 05/06 1145 AC PO Acetaminophen 1,000 MG Q6P PRN 05/06 1145 AC IV Atorvastatin Calcium 80 MG 1700 05/06 1700 AC 05/06 PO 1648 Morphine Sulfate 1 MG Q6-PRN PRN 05/06 1145 AC IV Pantoprazole Sodium 40 MG BID 05/06 2200 AC 05/07 IV 1024 Pantoprazole Sodium 40 MG DAILY 05/06 1045 DC 05/06 IV 1313 Rivastigmine 9.5 MG DAILY 05/06 1300 AC 05/07 TOP 1044 Tamsulosin HCl 0.4 MG DAILY 05/06 1300 AC 05/07 PO 1023 Laboratory Tests 05/07 05/06 0620 2219 Chemistry Troponin I (<0.11 ng/ml) < 0.01 Hematology CBC w Diff MAN DIFF ORDERED NO MAN DIFF REQ WBC (4.8 - 10.8 /CUMM) 13.8 H 12.7 H RBC (4.70 - 6.10 /CUMM) 3.52 L 3.53 L Hgb (14.0 - 18.0 G/DL) 11.0 L 11.0 L Hct (42 - 52 %) 33.3 L 33.2 L MCV (80.0 - 94.0 FL) 94.6 H 94.1 H MCH (27.0 - 31.0 PG) 31.4 H 31.1 H RDW (11.5 - 14.5 %) 18.3 H 18.2 H Plt Count (130 - 400 /CUMM) 557 H 561 H MPV (7.4 - 10.4 FL) 8.6 8.1 Gran % (42.2 - 75.2 %) 75.7 H 77.0 H Lymphocytes % (20.5 - 51.1 %) 13.6 L 12.1 L Monocytes % (1.7 - 9.3 %) 1.9 2.9 Eosinophils % (0 - 5 %) 7.5 H 7.3 H Basophils % (0.0 - 2.0 %) 1.3 0.7 Absolute Granulocytes (1.4 - 6.5 /CUMM) 10.4 H 9.8 H Segmented Neutrophils (42.2 - 75.2 %) 77 H Band Neutrophils (0.0 - 5.0 %) 4 Absolute Lymphocytes (1.2 - 3.4 /CUMM) 1.9 1.5 Lymphocytes (20.5 - 51.1 %) 11 L Monocytes (1.7 - 9.3 %) 3 Absolute Monocytes (0.10 - 0.60 /CUMM) 0.3 0.4 Eosinophils (0 - 5.0 %) 4 Absolute Eosinophils (0.0 - 0.7 /CUMM) 1.0 0.9 Absolute Basophils (0.0 - 0.2 /CUMM) 0.2 0.1 Metamyelocytes (0.0 - 1.0 %) 1 Platelet Estimate (ADEQUATE) INCREASED Poikilocytosis 2+ Anisocytosis 2+ Ovalocytes 1+ PUBS MCHC (33.0 - 37.0 G/DL) 33.2 33.1 05/06 05/06 1544 1326 Chemistry Troponin I (<0.11 ng/ml) 0.01 Hematology CBC w Diff NO MAN DIFF REQ WBC (4.8 - 10.8 /CUMM) 13.0 H RBC (4.70 - 6.10 /CUMM) 4.01 L Hgb (14.0 - 18.0 G/DL) 12.4 L Hct (42 - 52 %) 38.3 L MCV (80.0 - 94.0 FL) 95.4 H MCH (27.0 - 31.0 PG) 31.0 RDW (11.5 - 14.5 %) 18.4 H Plt Count (130 - 400 /CUMM) 526 H MPV (7.4 - 10.4 FL) 8.3 Gran % (42.2 - 75.2 %) 78.6 H Lymphocytes % (20.5 - 51.1 %) 9.4 L Monocytes % (1.7 - 9.3 %) 2.9 Eosinophils % (0 - 5 %) 8.5 H Basophils % (0.0 - 2.0 %) 0.6 Absolute Granulocytes (1.4 - 6.5 /CUMM) 10.2 H Absolute Lymphocytes (1.2 - 3.4 /CUMM) 1.2 Absolute Monocytes (0.10 - 0.60 /CUMM) 0.4 Absolute Eosinophils (0.0 - 0.7 /CUMM) 1.1 Absolute Basophils (0.0 - 0.2 /CUMM) 0.1 PUBS MCHC (33.0 - 37.0 G/DL) 32.5 L Vital Signs Date Time Temp Pulse Resp B/P Pulse O2 O2 Flow FiO2 Ox Delivery Rate 05/07 1023 98.0 70 18 136/78 05/07 0642 98.3 65 20 120/60 95 Room Air 05/06 2301 98.1 70 20 120/62 94 Room Air 05/06 1402 97.5 66 20 122/72 95
[2016-05-07 14:48] VITALS: BP 132/74
[2016-05-07 14:55] LABS: ABSOLUTE BASOPHIL COUNT 0.4 /CUMM (0.0-0.2); ABSOLUTE EOSINOPHIL COUNT 0.8 /CUMM (0.0-0.7); ABSOLUTE GRANULOCYTE CT 12.2 /CUMM (1.4-6.5); ABSOLUTE LYMPH COUNT 1.7 /CUMM (1.2-3.4); ABSOLUTE MONOCYTE COUNT 0.4 /CUMM (0.10-0.60); BASOPHIL % 2.7 % (0.0-2.0); EOSINOPHIL % 5.4 % (0-5); HEMATOCRIT 32.8 % (42-52); MEAN CORPUSCULAR HGB 31.2 PG (27.0-31.0); MEAN CORPUSCULAR HGB CONC 33.2 G/DL (33.0-37.0); MEAN CORPUSCULAR VOLUME 94.1 FL (80.0-94.0); MEAN PLATELET VOLUME 8.3 FL (7.4-10.4); PLATELET COUNT 600 /CUMM (130-400); RBC DISTRIBUTION WIDTH 18.5 % (11.5-14.5); RED BLOOD CELL CT 3.49 /CUMM (4.70-6.10); WHITE BLOOD CELL COUNT 15.6 /CUMM (4.8-10.8)
--- NOTE | 2016-05-07 17:20 | Patient Discharge Instructions ---
Discharge Instructions General Discharge Information You were seen/treated for: GI bleeding Special Instructions: Please follow up with Dr. Dickey after discharge within 1 week. Please follow up with dermatology regarding the skin lesion on the back of the neck Diet Recommended Diet: Heart Healthy Activity Activity Self Limited: Yes Acute Coronary Syndrome Inclusion Criteria At DC or during hospital stay patient has or had the following: ACS DIAGNOSIS No Discharge Core Measures Meds if any: Prescribed or Continued at Discharge Meds if any: NOT Prescribed or Continued at Discharge Congestive Heart Failure Inclusion Criteria At DC or during hospital stay patient has or had the following: CHF DIAGNOSIS No Discharge Core Measures Meds if any: Prescribed or Continued at Discharge Meds if any: NOT Prescribed or Continued at Discharge Cerebrovascular accident Inclusion Criteria At DC or during hospital stay patient has or had the following: CVA/TIA Diagnosis No Discharge Core Measures Meds if any: Prescribed or Continued at Discharge Meds if any: NOT Prescribed or Continued at Discharge Venous thromboembolism Inclusion Criteria VTE Diagnosis No VTE Type NONE VTE Confirmed by (Test) NONE Discharge Core Measures - Per Current guidelines, there needs to be overlap - treatment for the first 5 days of Warfarin therapy. - If discharged on Warfarin prior to 5 days of - overlap therapy, the patient will need to be - assessed for post discharge needs including - *Post discharge parental anticoagulation - *Warfarin and/or parental anticoagulation education - *Follow up date to check INR post discharge At least 5 days overlap therapy as Inpatient No Meds if any: Prescribed or Continued at Discharge Note: Overlap Therapy is Warfarin and Anticoagulant Meds if any: NOT Prescribed or Continued at Discharge
--- NOTE | 2016-05-07 20:30 | NUR ---
AT THIS TIME, PT EASILY AGITATED. PT STATING THAT HE WANTS TO CALL THE NON DESTRUCTIVE TESTING ENGINEER. PT THINKS HE IS IN HALFWAY. PT EASILY REORIENTED. SENIOR MATERIALS ANALYST POWER NOTIFIED. NO NEW ORDERS AT THIS TIME. WILL CONTINUE TO MONITOR.
[2016-05-07 22:29] VITALS: BP 130/70
[2016-05-07 22:56] LABS: ABSOLUTE BASOPHIL COUNT 0.1 /CUMM (0.0-0.2); ABSOLUTE EOSINOPHIL COUNT 0.9 /CUMM (0.0-0.7); ABSOLUTE GRANULOCYTE CT 11.9 /CUMM (1.4-6.5); ABSOLUTE LYMPH COUNT 1.6 /CUMM (1.2-3.4); ABSOLUTE MONOCYTE COUNT 0.5 /CUMM (0.10-0.60); BASOPHIL % 0.5 % (0.0-2.0); EOSINOPHIL % 6.1 % (0-5); HEMATOCRIT 31.6 % (42-52); MEAN CORPUSCULAR HGB 31.4 PG (27.0-31.0); MEAN CORPUSCULAR HGB CONC 33.4 G/DL (33.0-37.0); MEAN CORPUSCULAR VOLUME 93.9 FL (80.0-94.0); MEAN PLATELET VOLUME 8.1 FL (7.4-10.4); PLATELET COUNT 535 /CUMM (130-400); RBC DISTRIBUTION WIDTH 18.8 % (11.5-14.5); RED BLOOD CELL CT 3.37 /CUMM (4.70-6.10)
[2016-05-07 23:16] LABS: GRANULOCYTE % 79.5 % (42.2-75.2)
--- NOTE | 2016-05-08 06:59 | PN- Housestaff ---
Subjective Follow-up For: blood per rectum Subjective: Patient is alert and awake, not oriented to person place time, is forgetful and asks when his is coming. He is in no distress, very pleasant and cheerful, reports no abdominal pain, no passing of blood from rectum. Review of Systems Constitutional: Denies: chills, fever, weakness. EENTM: Reports: no symptoms. Cardiovascular: Denies: chest pain, palpitations. Respiratory: Reports: no symptoms. Gastrointestinal: Reports: no symptoms. Genitourinary: Reports: no symptoms. Musculoskeletal: Reports: no symptoms. Skin: Reports: no symptoms. Neurological/Psychological: Reports: no symptoms. Objective Last 24 Hrs of Vital Signs/I&O Vital Signs Date Time Temp Pulse Resp B/P Pulse O2 O2 Flow FiO2 Ox Delivery Rate 05/08 0703 98.6 70 20 130/80 94 Room Air 05/07 2229 98.3 74 20 130/70 96 Room Air 05/07 1448 98.2 73 20 132/74 95 05/07 1023 98.0 70 18 136/78 Intake & Output 05/08 1600 05/08 0800 05/08 0000 Intake Total 120 600 Output Total 1200 2000 Balance -1080 -1400 Intake, Oral 120 600 Output, Urine 1200 1999 Physical Exam General Appearance: Alert, Oriented X3, Cooperative, No Acute Distress Skin: there are multiple hyperpigmented lesions on the head and neck, trunk and upper extremities. there is a 3x4 cm skin skin, erythematous, with abrasion and excoriation on the posterior lower neck, asymptomatic, chronic. HEENT: Atraumatic, EOMI Neck: Supple, No JVD Cardiovascular: Regular Rate, Normal S1, Normal S2, 3/6 systolic murmur Lungs: Clear to Auscultation, Normal Air Movement Abdomen: Normal Bowel Sounds, Soft, No Tenderness Neurological: Normal Speech, Strength at 5/5 X4 Ext, Normal Tone, Sensation Intact, Cranial Nerves 3-12 NL Extremities: No Edema, Normal Pulses, No Tenderness/Swelling Current Medications: Current Medications Sig/Tatyana Start time Last Medication Dose Route Stop Time Status Admin Acetaminophen 650 MG Q6P PRN 05/06 1145 AC PO Acetaminophen 1,000 MG Q6P PRN 05/06 1145 AC IV Atorvastatin Calcium 80 MG 1700 05/06 1700 AC 05/07 PO 1645 Morphine Sulfate 1 MG Q6-PRN PRN 05/06 1145 AC IV Pantoprazole Sodium 40 MG BID 05/06 2200 AC 05/07 IV 2052 Rivastigmine 9.5 MG DAILY 05/06 1300 05/07 TOP 1044 Tamsulosin HCl 0.4 MG DAILY 05/06 1300 05/07 PO 1023 Last 24 Hrs of Lab/Gurpreet Results Last 24 Hrs of Labs/Mics: Laboratory Tests 05/08/16 0633: CBC w Diff NO MAN DIFF REQ, RBC 3.42 L, MCV 95.1 H, MCH 31.6 H, RDW 18.5 H, MPV 8.2, Gran % 78.5 H, Lymphocytes % 10.7 L, Monocytes % 2.9, Eosinophils % 7.1 H, Basophils % 0.8, Absolute Granulocytes 11.5 H, Absolute Lymphocytes 1.6 , Absolute Monocytes 0.4, Absolute Eosinophils 1.0, Absolute Basophils 0.1, PUBS MCHC 33.2 05/07/16 2210: CBC w Diff NO MAN DIFF REQ, RBC 3.37 L, MCV 93.9, MCH 31.4 H, RDW 18.8 H, MPV 8.1, Gran % 79.5 H, Lymphocytes % 10.4 L, Monocytes % 3.5, Eosinophils % 6.1 H, Basophils % 0.5, Absolute Granulocytes 11.9 H, Absolute Lymphocytes 1.6, Absolute Monocytes 0.5, Absolute Eosinophils 0.9, Absolute Basophils 0.1, PUBS MCHC 33.4 05/07/16 1434: CBC w Diff MAN DIFF ORDERED, RBC 3.49 L, MCV 94.1 H, MCH 31.2 H, RDW 18.5 H, MPV 8.3, Gran % 78.0 H, Lymphocytes % 11.1 L, Monocytes % 2.8, Eosinophils % 5.4 H, Basophils % 2.7 H, Absolute Granulocytes 12.2 H, Segmented Neutrophils 72, Band Neutrophils 4, Absolute Lymphocytes 1.7, Lymphocytes 15 L, Monocytes 2 , Absolute Monocytes 0.4, Eosinophils 3, Absolute Eosinophils 0.8, Basophils 2, Absolute Basophils 0.4, Metamyelocytes 1, Myelocytes 1 H, Platelet Estimate INCREASED, Polychromasia 1+, Hypochromic-Microcytic 1+, Poikilocytosis 3+, Anisocytosis 2+, Ovalocytes 2+, Elliptocytes 2+, Schistocytes 1+, PUBS MCHC 33.2 Assessment/Plan Assessment: Patient is a 89 years old gentleman with PMH of CAD s/p stents on anagrelide and aspirin, who is admitted due to an episode of jed blood in stool associated with abdominal pain nausea or vomiting, denies shortness of breath palpitation or chest pain and has been hemodynamically stable. Patient has had one more episode of 350 ml jed red blood per rectum on the day of admission. GI is on board and talked with POA (), who do not wish aggressive measures including endoscopic workup, radiographic studies or surgeries. Problem list: GI bleeding Possibly lower GI, patient passed jed blood from rectum. Has not had any episode of bleeding since admission. per POA decision will do conservative management of the GIB, no scoping or imaging or surgeries. * monitored H/H, stable for the past 48 hours with no further episodes of bleeding since admission * Has been saturating well in RA. * tolerated regular diet well. Hx of CAD, Hypertension, Hyperlipidemia * BP medications were on hold due to borderline BP onadmission, will resume at discharge. * aspirin and agrylin are stopped due to GIB * *I've talked to Dr. Hayes regarding antiplatelets medication for the patient , he said stop both aspirin and agrylin as the patient is bleeding. * continued lipitor Chronic skin ulcer There is a 3x4 cm skin lesion with breakdown and excoriation on the posterior lower neck. I called patient 's and told her about it and that it needs to be followed up by a welder repair. It is non-itchy and non-tender. I recommended a skin biopsy. Patient's said they are aware of it as well as his PCP. He will BPH * continued tamsulosin 0.4 mg daily mild pain pathway DVT px with ALPS DNR DNI Problem List: 1. Aortic stenosis 2. Lower GI bleed 3. CAD (coronary artery disease) 4. HTN (hypertension) 5. Macrocytic anemia 6. Chronic anemia 7. Chronic indwelling Rothman catheter 8. Leukocytosis Pain Ratin Pain Location: no pain Pain Goal: Pain 4 or less Pain Plan: mild pp Tomorrow's Labs & Rationales: none Consulting Request: Consulting Specialty: Gastroenterology Consulting Physician: Dr. Thomas Reason for Consult: GI Bleed
[2016-05-08 07:03] VITALS: BP 130/80
[2016-05-08 07:55] LABS: ABSOLUTE BASOPHIL COUNT 0.1 /CUMM (0.0-0.2); ABSOLUTE GRANULOCYTE CT 11.5 /CUMM (1.4-6.5); ABSOLUTE LYMPH COUNT 1.6 /CUMM (1.2-3.4); ABSOLUTE MONOCYTE COUNT 0.4 /CUMM (0.10-0.60); BASOPHIL % 0.8 % (0.0-2.0); EOSINOPHIL % 7.1 % (0-5); GRANULOCYTE % 78.5 % (42.2-75.2); HEMATOCRIT 32.5 % (42-52); MEAN CORPUSCULAR HGB 31.6 PG (27.0-31.0); MEAN CORPUSCULAR HGB CONC 33.2 G/DL (33.0-37.0); MEAN CORPUSCULAR VOLUME 95.1 FL (80.0-94.0); MEAN PLATELET VOLUME 8.2 FL (7.4-10.4); PLATELET COUNT 482 /CUMM (130-400); RBC DISTRIBUTION WIDTH 18.5 % (11.5-14.5); RED BLOOD CELL CT 3.42 /CUMM (4.70-6.10); WHITE BLOOD CELL COUNT 14.6 /CUMM (4.8-10.8)
--- NOTE | 2016-05-08 09:13 | PN- Att Addend ---
Attending Addendum Attending Brief Note Patient has no complaints and has had no recurrent bleeding General Appearance: Alert, No Acute Distress Skin: Grossly normal HEENT: PEERLA Neck: Supple, No JVD Cardiovascular: Regular Rate, Normal S1, Normal S2, No Murmurs Lungs: Clear to Auscultation, Normal Air Movement Abdomen: Normal Bowel Sounds, Soft, No Tenderness Neurological: Normal Speech, Strength at 5/5 X4 Ext, Cranial Nerves 3-12 NL, Reflexes 2+ Extremities: No Clubbing, No Cyanosis, No Edema Vascular: Normal Pulses Assessment 89-year-old with history of hypertension, dyslipidemia, coronary artery disease status post stent, carotid stenosis and dementia presenting with PRBPR. He has had a similar bleeding in the past with a negative colonoscopy. The family this time has opted for conservative management and no colonoscopy. Gram-negative rods in the urine and patient has a chronic indwelling Rothman. He appears asymptomatic without fever however he does have mild leukocytosis. At this time we will follow off antibiotics and observe. Cardiology has agreed to discontinue antiplatelets at this time. Plan Discontinue antiplatelets. Follow off antibiotics PT evaluation ALPS for DVT prophylaxis Current Medications Sig/Tatyana Start time Last Medication Dose Route Stop Time Status Admin Acetaminophen 650 MG Q6P PRN 05/06 1145 AC PO Acetaminophen 1,000 MG Q6P PRN 05/06 1145 AC IV Atorvastatin Calcium 80 MG 1700 05/06 1700 AC 05/07 PO 1645 Morphine Sulfate 1 MG Q6-PRN PRN 05/06 1145 AC IV Pantoprazole Sodium 40 MG BID 05/06 2200 AC 05/07 IV 2052 Rivastigmine 9.5 MG DAILY 05/06 1300 AC 05/07 TOP 1044 Tamsulosin HCl 0.4 MG DAILY 05/06 1300 AC 05/07 PO 1023 Laboratory Tests 05/08 05/07 0633 2210 Hematology CBC w Diff NO MAN DIFF REQ NO MAN DIFF REQ WBC (4.8 - 10.8 /CUMM) 14.6 H 15.0 H RBC (4.70 - 6.10 /CUMM) 3.42 L 3.37 L Hgb (14.0 - 18.0 G/DL) 10.8 L 10.6 L Hct (42 - 52 %) 32.5 L 31.6 L MCV (80.0 - 94.0 FL) 95.1 H 93.9 MCH (27.0 - 31.0 PG) 31.6 H 31.4 H RDW (11.5 - 14.5 %) 18.5 H 18.8 H Plt Count (130 - 400 /CUMM) 482 H 535 H MPV (7.4 - 10.4 FL) 8.2 8.1 Gran % (42.2 - 75.2 %) 78.5 H 79.5 H Lymphocytes % (20.5 - 51.1 %) 10.7 L 10.4 L Monocytes % (1.7 - 9.3 %) 2.9 3.5 Eosinophils % (0 - 5 %) 7.1 H 6.1 H Basophils % (0.0 - 2.0 %) 0.8 0.5 Absolute Granulocytes (1.4 - 6.5 /CUMM) 11.5 H 11.9 H Absolute Lymphocytes (1.2 - 3.4 /CUMM) 1.6 1.6 Absolute Monocytes (0.10 - 0.60 /CUMM) 0.4 0.5 Absolute Eosinophils (0.0 - 0.7 /CUMM) 1.0 0.9 Absolute Basophils (0.0 - 0.2 /CUMM) 0.1 0.1 PUBS MCHC (33.0 - 37.0 G/DL) 33.2 33.4 05/07 1434 Hematology CBC w Diff MAN DIFF ORDERED WBC (4.8 - 10.8 /CUMM) 15.6 H RBC (4.70 - 6.10 /CUMM) 3.49 L Hgb (14.0 - 18.0 G/DL) 10.9 L Hct (42 - 52 %) 32.8 L MCV (80.0 - 94.0 FL) 94.1 H MCH (27.0 - 31.0 PG) 31.2 H RDW (11.5 - 14.5 %) 18.5 H Plt Count (130 - 400 /CUMM) 600 H MPV (7.4 - 10.4 FL) 8.3 Gran % (42.2 - 75.2 %) 78.0 H Lymphocytes % (20.5 - 51.1 %) 11.1 L Monocytes % (1.7 - 9.3 %) 2.8 Eosinophils % (0 - 5 %) 5.4 H Basophils % (0.0 - 2.0 %) 2.7 H Absolute Granulocytes (1.4 - 6.5 /CUMM) 12.2 H Segmented Neutrophils (42.2 - 75.2 %) 72 Band Neutrophils (0.0 - 5.0 %) 4 Absolute Lymphocytes (1.2 - 3.4 /CUMM) 1.7 Lymphocytes (20.5 - 51.1 %) 15 L Monocytes (1.7 - 9.3 %) 2 Absolute Monocytes (0.10 - 0.60 /CUMM) 0.4 Eosinophils (0 - 5.0 %) 3 Absolute Eosinophils (0.0 - 0.7 /CUMM) 0.8 Basophils (0.0 - 2.0 %) 2 Absolute Basophils (0.0 - 0.2 /CUMM) 0.4 Metamyelocytes (0.0 - 1.0 %) 1 Myelocytes (0 - 0 %) 1 H Platelet Estimate (ADEQUATE) INCREASED Polychromasia 1+ Hypochromic-Microcytic 1+ Poikilocytosis 3+ Anisocytosis 2+ Ovalocytes 2+ Elliptocytes 2+ Schistocytes 1+ PUBS MCHC (33.0 - 37.0 G/DL) 33.2 Vital Signs Date Time Temp Pulse Resp B/P Pulse O2 O2 Flow FiO2 Ox Delivery Rate 05/08 0703 98.6 70 20 130/80 94 Room Air 05/07 2229 98.3 74 20 130/70 96 Room Air 05/07 1448 98.2 73 20 132/74 95 05/07 1023 98.0 70 18 136/78
--- NOTE | 2016-05-20 14:41 | Discharge Summary ---
Visit Information Visit Dates Admission Date: 05/06/16 Discharge Date: 05/08/16 Hospital Course Course Attending Physician: DANIEL OSORIO MD Primary Care Physician: DANIEL OSORIO MD Consulting Request: Consulting Specialty: Gastroenterology Consulting Physician: Dr. Thomas Reason for Consult: GI Bleed Hospital Course: 89-year-old with history of hypertension, dyslipidemia, coronary artery disease status post stent, carotid stenosis and dementia presenting with BRBPR. He has had a similar bleeding in the past with a negative colonoscopy. 1. Bleeding per rectum The family this time opted for conservative management and deferred colonoscopy. patient did not have further GI bleed in the hospital. Upon discharge anagrelide and aspirin was held. Patient will follow-up with hematology and cardiology as outpatient to reassess the need for blood thinners. 2. Pseudomonas in urine Patient has a chronic indwelling Rothman. He appeared asymptomatic without fever however had a mild leukocytosis. he was followed off antibiotics without further complications. Allergies: Coded Allergies: NO KNOWN ALLERGIES (02/07/16) Disposition Summary Disposition Principal Diagnosis: rectal bleeding Additional Diagnosis: thrombocytosis Coronary artery disease Discharge Disposition: home or self care Discharge Instructions General Discharge Information Code Status: Full Code Patient's Diet: low-salt diet Patient's Activity: no limitations Follow-Up Instructions/Appts: follow-up with hematology and cardiology as outpatient to discuss the need for blood thinners Medications at Discharge Discharge Medications: Stop taking the following medications: Anagrelide Hydrochloride (Agrylin) 0.5 MG CAPSULE ORAL TWICE DAILY Aspirin (Aspirin*) 81 MG TAB.CHEW ORAL DAILY Continue taking these medications: Amlodipine Besylate (Norvasc) 5 MG TABLET 1 Tablet ORAL DAILY Comments: NOT GIVEN WHILE IN HOSPITAL Metoprolol Tartrate (Lopressor) 50 MG TABLET 1 Tablet ORAL TWICE DAILY Comments: NOT GIVEN WHILE IN HOSPITAL Rivastigmine (Exelon) 9.5 MG/Patch PAT 1 Patch On the skin DAILY Comments: Last Taken: 05/08/16 Time: 10AM Ferrous Sulfate (Ferrous Sulfate) 325 MG (65 MG IRON) TABLET 1 Tablet ORAL THREE TIMES DAILY Comments: NOT GIVEN WHILE IN HOSPTIAL Dutasteride (Avodart) 0.5 MG CAPSULE 1 Capsule ORAL DAILY Comments: NOT GIVEN WHILE IN HOSPITAL Tamsulosin HCl (Tamsulosin HCl) 0.4 MG CAP.ER.24H 1 Capsule ORAL DAILY Comments: Last Taken: 05/08/16 Time: 10AM Atorvastatin Calcium (Atorvastatin Calcium) 80 MG TABLET 1 Tablet ORAL DAILY Qty = 90 Comments: Last Taken: 05/07/16 Time: 5PM Copies To: KOKI SHARMA,SUDHA Garnett; BRITTNY SHARMA,MATTIE Sanchez; NICO SHARMA,MATTIE Henriquez Attending MD Review Statement Documenting Attending: DANIEL OSORIO MD
== END 2016-05-08 14:14 | disposition home health service (06) | DRG 378 ==
LOC: ENRESERVDT → ENRESERVTM → ERH 07:04 → ENPENDDIS 09:33 → ERHI 09:33 → 2NA 09:33
PROVIDERS: Internal Medicine Interventional Cardiology; Ophthalmology; Preventive Medicine Public Health & General Preventive Medicine; ADMIT Internal Medicine
DX: K92.2 Gastrointestinal hemorrhage, unspecified (principal); D62 Acute posthemorrhagic anemia; F03.90 Unspecified dementia, unspecified severity, without behavioral disturbance, psychotic disturbance, mood disturbance, and anxiety; I35.0 Nonrheumatic aortic (valve) stenosis; D47.3 Essential (hemorrhagic) thrombocythemia; I10 Essential (primary) hypertension; E78.5 Hyperlipidemia, unspecified; I25.2 Old myocardial infarction; N40.0 Benign prostatic hyperplasia without lower urinary tract symptoms; I25.10 Atherosclerotic heart disease of native coronary artery without angina pectoris; L98.499 Non-pressure chronic ulcer of skin of other sites with unspecified severity; I73.9 Peripheral vascular disease, unspecified; Z87.891 Personal history of nicotine dependence; Z85.819 Personal history of malignant neoplasm of unspecified site of lip, oral cavity, and pharynx
CPT/HCPCS: 2NAP; 36415; 81001; 87086; 93005; 93010; 97116-GO; 97161-GP; 97530-GO; J0131

== ENCOUNTER 2016-07-28 20:14 | Inpatient (IN) | payer OTHER, MEDICARE ==
[~2016-07-28] VITALS: Ht 177.8 cm; Wt 74.8 kg
[~2016-07-28 20:14] MED LIST changes: +ASPIRIN81 M4 PO; +ATORVASTATIN CA80 M1 PO; +AVODART0.5 M1 PO; +TAMSULOSIN HCL0.4 M1 PO
--- NOTE | 2016-07-28 20:54 | ED MVC/FALL/TRAUMA COMPLAINT ---
History of Present Illness General Chief Complaint: Fall Stated Complaint: BIBA FOR FREQUENT FALLS Source: patient, old records, EMS Exam Limitations: dementia Vital Signs & Intake/Output Vital Signs & Intake/Output Vital Signs Date Time Temp Pulse Resp B/P B/P Pulse O2 O2 Flow FiO2 Mean Ox Delivery Rate 07/29 2015 98.2 63 18 125/76 94 Room Air Room Air Allergies Coded Allergies: NO KNOWN ALLERGIES (02/07/16) Reconcile Medications Amlodipine Besylate (Norvasc) 5 MG TABLET 1 TAB PO DAILY BP (Reported) Atorvastatin Calcium 80 MG TABLET 1 TAB PO DAILY CHOLESTEROL (Reported) Dutasteride (Avodart) 0.5 MG CAPSULE 1 CAP PO DAILY BPH (Reported) Ferrous Sulfate 325 MG (65 MG IRON) TABLET 1 TAB PO TID ANEMIA (Reported) Metoprolol Tartrate (Lopressor) 50 MG TABLET 1 TAB PO BID HEART (Reported) Rivastigmine (Exelon) 9.5 MG/Patch PAT 1 PAT TOP DAILY DEMENTIA (Reported) Tamsulosin HCl 0.4 MG CAP.ER.24H 1 CAP PO DAILY BPH (Reported) Triage Note: 89 YEAR OLD MALE BIBA FROM HOME S/P FALL. PT REPORTS HE HAS FALLEN TWICE TODAY BUT COULD NOT GET UP AFTER MOST RECENT FALL. PT DENIES HEADSTRIKE, LOC, BLOOD THINNERS. EMS REPORTS THEY FOUND PT SUPINE ON THE FLOOR. PT HAS NO SPECIFIC COMPLAINTS AT THIS TIME. PT ABLE TO MOVE ARMS AND LEGS WITH NO DIFFICULTY. Triage Nurses Notes Reviewed? yes Onset: Just prior to arrival Duration: hour(s):, constant, continues in ED Timing: recent history Severity: moderate Injuries/Fall Location: pelvis, lower extremity Loss of Consciousness: no loss of consciousness Modifying Factors: Worsens With: movement, palpation. Associated Symptoms: trouble walking HPI: EMS report patient had 2 falls today. He was unable to get up after his last fall onto the floor in front of the couch. He complains of right thigh pain worse with palpation sharp constant nonradiating. He denies fever chills nausea vomiting diarrhea abdominal pain chest pain shortness of breath headache dysuria rash bleeding change in bowel bladder habit change in motor sensory function. Past History Travel History Traveled to [place] past 21 day No Medical History Any Pertinent Medical History? 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 MOTHER (Hypertension). Hx Contributory? No Review of Systems Review of Systems Constitutional: Reports: see HPI, weakness. Eyes: Reports: no symptoms. Ears, Nose, Throat, Mouth: Reports: no symptoms. Respiratory: Reports: no symptoms. Cardiovascular: Reports: no symptoms. Gastrointestinal/Abdominal: Reports: no symptoms. Genitourinary: Reports: no symptoms. Musculoskeletal: Reports: see HPI, joint pain. Skin: Reports: no symptoms. Neurological/Psychological: Reports: no symptoms. All Other Systems: Reviewed and Negative Physical Exam Physical Exam General Appearance: well developed/nourished, alert, awake, anxious, comfortable Head: atraumatic, normal appearance Eyes: Bilateral: normal appearance, PERRL, EOMI, normal inspection. Ears, Nose, Throat, Mouth: hearing grossly normal, moist mucous membrane Neck: normal inspection, supple, full range of motion, normal alignment Respiratory: normal breath sounds, chest non-tender, no respiratory distress, quiet respiration, lungs clear Cardiovascular: regular rate/rhythm, normal peripheral pulses, systolic murmur, norml femoral pulses equa Peripheral Pulses: 4+ carotid (R), 4+ carotid (L) Gastrointestinal: normal bowel sounds, soft, non-tender, no organomegaly Back: normal inspection, normal range of motion Extremities: bony-point tenderness, limited range of motion, straight leg raised , no ligament instability Neurologic/Psych: no motor/sensory deficits, awake, alert, normal mood/affect, surveyor's assistant II-XII nml as tested Skin: intact, normal color, warm/dry Core Measures ACS in differential dx? Yes ASA ordered for poss ACS? No-ACS ruled out Severe Sepsis Present: No Septic Shock Present: No Progress Differential Diagnosis: ICH, pelvis injury Plan of Care: Orders Procedure Date/time Status Regular Diet 07/29 B Active OXYGEN SETUP (GEN) 07/28 2216 Active Saline Lock 07/28 2216 Active Admit to inpatient 07/28 2216 Active Vital Signs 07/28 2216 Active Activity/Ambulation 07/28 2216 Active Code Status 07/28 2216 Active Add-on Test (ER Only) 07/28 2213 Active URINALYSIS 07/28 2028 Complete TROPONIN LEVEL 07/28 2028 Complete COMPREHENSIVE METABOLIC PANEL 07/28 2028 Complete CBC WITHOUT DIFFERENTIAL 07/28 2028 Complete EKG 07/28 2028 Active Laboratory Tests 07/28/162119: Urinalysis LIGHT H, Urine Color YEL, Urine Clarity CLDY H, Urine pH 6.5, Ur Specific Sacul 1.020, Urine Protein 100 H, Urine Ketones NEG, Urine Nitrite POS H, Urine Bilirubin NEG, Urine Urobilinogen 0.2, Ur Leukocyte Esterase LARGE H, Ur Microscopic SEDIMENT EXAMINED, Urine RBC 1-3, Urine WBC PACKD H, Ur Epithelial Cells MOD H, Urine Bacteria PACKD H, Urine Mucus MOD H, Urine Hemoglobin SMALL H, Urine Glucose NEG 07/28/162101: Anion Gap 9, Estimated GFR 57 L, BUN/Creatinine Ratio 20.0, Glucose 94, Calcium 8.5, Total Bilirubin 0.7, AST 25, ALT 37, Alkaline Phosphatase 120, Troponin I 0.02, Total Protein 5.8 L, Albumin 3.4 L, Globulin 2.4, Albumin/Globulin Ratio 1.4, CBC w Diff NO MAN DIFF REQ, RBC 3.62 L, MCV 89.8, MCH 29.8, RDW 18.9 H, MPV 8.0, Gran % 74.7, Lymphocytes % 15.3 L, Monocytes % 3.2, Eosinophils % 4.4, Basophils % 2.4 H, Absolute Granulocytes 8.4 H, Absolute Lymphocytes 1.7, Absolute Monocytes 0.4, Absolute Eosinophils 0.5, Absolute Basophils 0.3, PUBS MCHC 33.1 Departure Departure Time of Disposition: 2214 Disposition: STILL A PATIENT Condition: Stable Clinical Impression Primary Impression: Urinary tract infection associated with indwelling urethral catheter Qualifiers: Encounter type: initial encounter Qualified Codes: T83.511A - Infection and inflammatory reaction due to indwelling urethral catheter, initial encounter; N39.0 - Urinary tract infection, site not specified Secondary Impressions: Dementia Qualifiers: Dementia type: unspecified type Dementia behavioral disturbance: without behavioral disturbance Qualified Code: F03.90 - Unspecified dementia without behavioral disturbance Multifactorial gait disorder Referrals: DANIEL OSORIO MD (PCP/Family) Departure Forms: Customer Survey General Discharge Information Admission Note Spoke With: DANIEL OSORIO MD Documentation of Exam: Documentation of any treatments & extenuating circumstances including Concerns Regarding Discharge (functional status, medication knowledge or non-compliance, living conditions, etc.) that warrant an admission rather than observation: Antibiotics and follow culture physical therapy and medication adjustment continuing care discharge planning
--- NOTE | 2016-07-28 21:13 | CT SCAN REPORT ---
EXAMINATION: CT HEAD WITHOUT CONTRAST CLINICAL INFORMATION: Fall. Confusion. COMPARISON: 04/04/2016 TECHNIQUE: Contiguous axial imaging was performed from the skull base to vertex without intravenous contrast. DLP: 622 mGy-cm. FINDINGS: There is no evidence of acute intracranial hemorrhage or territorial infarction. No abnormal mass effect or midline shift is seen. Liu to white matter differentiation is well preserved. No extra-axial fluid collections are identified. No hydrocephalus. Proportional prominence of the ventricles and sulcal spaces is consistent with moderate volume loss. Patchy periventricular and deep white matter hypoattenuation is consistent with moderate small vessel ischemic changes. The osseous structures and soft tissues are normal. Partial opacification of the right mastoid air cells. The mastoid air cells and visualized portions of the paranasal sinuses are otherwise well aerated. IMPRESSION: No acute intracranial pathology. Moderate volume loss and small vessel ischemic changes. Persistent partial opacification of the right mastoid air cells.
[2016-07-28 21:16] LABS: ABSOLUTE BASOPHIL COUNT 0.3 /CUMM (0.0-0.2); ABSOLUTE EOSINOPHIL COUNT 0.5 /CUMM (0.0-0.7); ABSOLUTE GRANULOCYTE CT 8.4 /CUMM (1.4-6.5); ABSOLUTE LYMPH COUNT 1.7 /CUMM (1.2-3.4); ABSOLUTE MONOCYTE COUNT 0.4 /CUMM (0.10-0.60); BASOPHIL % 2.4 % (0.0-2.0); EOSINOPHIL % 4.4 % (0-5); GRANULOCYTE % 74.7 % (42.2-75.2); HEMATOCRIT 32.5 % (42-52); MEAN CORPUSCULAR HGB 29.8 PG (27.0-31.0); MEAN CORPUSCULAR HGB CONC 33.1 G/DL (33.0-37.0); MEAN CORPUSCULAR VOLUME 89.8 FL (80.0-94.0); PLATELET COUNT 263 /CUMM (130-400); RBC DISTRIBUTION WIDTH 18.9 % (11.5-14.5); RED BLOOD CELL CT 3.62 /CUMM (4.70-6.10); WHITE BLOOD CELL COUNT 11.3 /CUMM (4.8-10.8)
--- NOTE | 2016-07-28 22:04 | RADIOLOGY REPORT ---
EXAMINATION:\H\ \N\XR CHEST CLINICAL INFORMATION: Confusion. Pneumonia. COMPARISON: Prior examinations most recent chest March 2016 TECHNIQUE: Frontal view of the chest was obtained. FINDINGS: Mild calcification of the dorsal aorta. Chronic silhouette within the upper limits of normal but unchanged. Pulmonary vasculature are normal. Lungs and pleural spaces: Minimal scarring or recurrent discoid atelectasis left base. Lungs otherwise clear. IMPRESSION: No acute cardiopulmonary process.
--- NOTE | 2016-07-28 22:05 | RADIOLOGY REPORT ---
EXAMINATION: XR HIP, RIGHT WITH PELVIS CLINICAL INFORMATION: ORIF with fall. Right hip pain. COMPARISON: 02/07/2016 TECHNIQUE: Frontal view of the pelvis with 2 additional views of the right hip FINDINGS: Right hip hemiarthroplasty appears intact. No periprosthetic lucency or fracture. The femoral head component articulates appropriately with the acetabulum. The left femoral head is well-seated within its acetabulum. Mild degenerative changes of the left hip. The pelvic rim is intact. Degenerative changes at the lower lumbar spine. Vascular calcifications. Evidence of prior right hernia repair. IMPRESSION: Intact right hip hemiarthroplasty. No acute fracture or dislocation.
--- NOTE | 2016-07-28 23:32 | History & Physical ---
STEPHEN SHARMA,[facility] 07/28/16 4200: General Information and HPI MD Statement: I have seen and personally examined MARILYN PERRY and documented this H&P. The patient is a 89 year old M who presented with a patient stated chief complaint of frequent fall. Source of Information: patient, family, old records Exam Limitations: no limitations History of Present Illness: Mr Perry is a 89 year old gentleman with past medical history of hypertension, essential thrombocythemia, hyperlipidemia, non-ST elevation myocardial infarction (angioplasty/stent in the past), inferior wall MN recently status post cardiac cath in the [facility], 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 The patient was also found to be confused and disoriented. At the time of our clinincal encounter at the ED, the patient was alert, however not oriented to time or person. He was oriented to place though unsure as to the reason why he was brought into the ED. He states that he was brought in by a stock car driver after he bummed a ride on a truck. Reports from the ED suggest that the patient had fallen twice at home. Patient was unable to get up after the second fall and was found to be supine on the floor. It was also mentioned that the patient did complain of right thigh pain although, the patient endorsed no complaints. Allergies/Medications Allergies: Coded Allergies: NO KNOWN ALLERGIES (02/07/16) Home Med list Amlodipine Besylate (Norvasc) 5 MG TABLET 1 TAB PO DAILY BP (Reported) Atorvastatin Calcium 80 MG TABLET 1 TAB PO DAILY CHOLESTEROL (Reported) Dutasteride (Avodart) 0.5 MG CAPSULE 1 CAP PO DAILY BPH (Reported) Ferrous Sulfate 325 MG (65 MG IRON) TABLET 1 TAB PO TID ANEMIA (Reported) Metoprolol Tartrate (Lopressor) 50 MG TABLET 1 TAB PO BID HEART (Reported) Rivastigmine (Exelon) 9.5 MG/Patch PAT 1 PAT TOP DAILY DEMENTIA (Reported) Tamsulosin HCl 0.4 MG CAP.ER.24H 1 CAP PO DAILY BPH (Reported) Compliance With Home Meds: GOOD Past History Travel History Traveled to [place] past 21 day No Medical History Neurological: dementia EENT: hearing loss, R ear deafness post-operatively Cardiovascular: aortic stenosis, CAD, hypertension, hyperlipidemia, mitral regurgitation Respiratory: NONE Gastrointestinal: past hx rectal bleed Hepatic: NONE Renal: benign prost hyperplasia (mult TURP- benign), INDWELLING CARVALHO WITH LEG BAG, PT UNSURE WHY hx UTI/urethral trauma cystitis Musculoskeletal: degen joint disease, falls, fracture (R hip), osteoarthritis, R FEMORAL ARTHROPLASTY Psychiatric: NONE Endocrine: NONE Blood Disorders: essential thrombocytosis Cancer(s): ORAL CANCER- surg/RT f/b deaf R ear GAS METER READER/Reproductive: NONE Other Medical Hx: Benign prostatic hypertrophy History of MRSA: No History of VRE: Yes History of CDIFF: No Influenza Vaccine: 12/14/15 Surgical History Surgical History: hernia repair-inguinal (B/L), PTCA/bare metal stent L Cx 11/20 mult TURP (benign) & TURBT with indwelling Carvalho R hip hemiarthroplasty post fall 01/12/15 Past Family/Social History Family History Relations & Conditions if any FATHER ( around age 44 -- rectal CA). MOTHER (Hypertension). Psychosocial History Where do you live? Home Who Do You Live With? spouse Services at Home: Nursing Primary Language: Kyrgyz Living Will? yes Power of Chair Car Driver/HCP? yes Name of POA/HCP: pt's , Glenna Perry Functional Ability ADLs Needs Assist: dressing, eating, toileting, bathing. Ambulation: cane, walker IADLs Needs Assist: shopping, housework, finances, food prep, telephone, transportation, medication admin. Review of Systems Review of Systems Constitutional: Denies: chills, diaphoresis, fever, malaise, weakness, unexplained weight loss. EENTM: Denies: blurred vision, double vision, visual changes, eye pain, eye drainage, eye tearing. Cardiovascular: Denies: chest pain, edema, orthopena, palpitations, peripheral edema. Respiratory: Denies: cough, hemoptysis, orthopnea, short of breath. GI: Denies: abdominal pain, bloating, constipation, diarrhea, distention, bowel incontinence. Genitourinary: Denies: discharge, dysuria, frequency, hematuria. Musculoskeletal: Reports: joint pain (Hip Pain ). Denies: back pain, gout, joint swelling. Skin: Denies: change in skin color, change in hair/nails, dryness, erythema, jaundice. Exam & Diagnostic Data Last 24 Hrs of Vital Signs/I&O Vital Signs Date Time Temp Pulse Resp B/P B/P Pulse O2 O2 Flow FiO2 Mean Ox Delivery Rate 07/29 0040 97.9 67 18 154/88 93 Room Air 07/28 2358 98.0 68 16 156/90 95 Room Air 07/28 2249 98.3 66 18 144/86 94 Room Air 07/28 2016 98.2 63 18 125/76 94 Room Air Room Air Intake & Output 07/29 0800 07/29 0000 07/28 1600 Intake Total Output Total Balance Patient 74.843 kg Weight Weight Reported by Patient Measurement Method Physical Exam General Appearance Alert, Cooperative, No Acute Distress HEENT Atraumatic, PERRLA, EOMI Cardiovascular Regular Rate, Normal S1, Normal S2 Lungs Clear to Auscultation, Increased Breath Sounds Left Lower Lung Base Abdomen Normal Bowel Sounds, Soft, No Tenderness Neurological Strength at 5/5 X4 Ext Extremities No Clubbing, No Cyanosis, No Edema Vascular Normal Pulses Reproductive (MALE) Carvalho in Place Last 24 Hrs of Labs/Gurpreet: Laboratory Tests 07/28/162119: Urinalysis LIGHT H, Urine Color YEL, Urine Clarity CLDY H, Urine pH 6.5, Ur Specific [place] 1.020, Urine Protein 100 H, Urine Ketones NEG, Urine Nitrite POS H, Urine Bilirubin NEG, Urine Urobilinogen 0.2, Ur Leukocyte Esterase LARGE H, Ur Microscopic SEDIMENT EXAMINED, Urine RBC 1-3, Urine WBC PACKD H, Ur Epithelial Cells MOD H, Urine Bacteria PACKD H, Urine Mucus MOD H, Urine Hemoglobin SMALL H, Urine Glucose NEG 07/28/162101: Anion Gap 9, Estimated GFR 57 L, BUN/Creatinine Ratio 20.0, Glucose 94, Calcium 8.5, Total Bilirubin 0.7, AST 25, ALT 37, Alkaline Phosphatase 120, Troponin I 0.02, Total Protein 5.8 L, Albumin 3.4 L, Globulin 2.4, Albumin/Globulin Ratio 1.4, CBC w Diff NO MAN DIFF REQ, RBC 3.62 L, MCV 89.8, MCH 29.8, RDW 18.9 H, MPV 8.0, Gran % 74.7, Lymphocytes % 15.3 L, Monocytes % 3.2, Eosinophils % 4.4, Basophils % 2.4 H, Absolute Granulocytes 8.4 H, Absolute Lymphocytes 1.7, Absolute Monocytes 0.4, Absolute Eosinophils 0.5, Absolute Basophils 0.3, PUBS MCHC 33.1 Microbiology 07/29 2119 URINE ROUT: Urine Culture - RECD Diagnostic Data CXR Results At the ED a head CT, C-Xray, Hip X ray were all unremarkable. Assessment/Plan Assessment: Mr Perry is a 89 year old gentleman with past medical history of hypertension, essential thrombocythemia, hyperlipidemia, non-ST elevation myocardial infarction (angioplasty/stent in the past), inferior wall MN recently status post cardiac cath in the [facility], 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 The patient was also found to be confused and disoriented. At the ED a head CT, C-Xray, Hip X ray were all unremarkable. #Delirium status post acute urinary tract infection. Will admit the patient to general medicine for closer monitoring. Currently started on ceftriaxone, 1000mg IV. The patient does have history of growing multiple resistant organisms in the past. Should he not improve in the next 24 hours. Will consider infectious diseases consult. Patient does have a history of chronic Carvalho which is changed every 3 weeks by [facility]. Check CBC in a.m. Continue gentle hydration. Monitor ins and outs. Urine: positive for nitrite and leukocyte esterase. Packed WBC. Follow-up urine culture. Please confirm with family when carvalho was last changed. #History of fall. Head CT was unremarkable. Orthostatic Vital Signs Q Shift. If patient deteriorates neurologically consider neurology consult in AM. During the patient's last admission he was advised to follow-up with cardiology regarding the need for blood thinners. Assess with fine arts chair in a.m. #Hx of hypertension Continue Norvasc 5 mg. Continue metoprolol 50 mg. #Anemia. H&H on admission 10.8 and 32.5. Consider Anemia Work up Iron, TIBC, B12, folate. Continue ferrous sulfate. #KWESI BUN on admission: 24. BUN/CR ratio: 20. Pre renal Azotemia. Likely due to dehydration. Continue NS Repeat BEP in AM #History of BPH Continue Flomax. DVT prophylaxis Heparin 5000 Units Diet advance as tolerated. Code Full code patient is unable to provide code status information, confirm Code in AM. As Ranked By This Provider Problem List: 1. Dementia Qualifiers Dementia type: unspecified type Dementia behavioral disturbance: without behavioral disturbance Qualified Code: F03.90 - Unspecified dementia without behavioral disturbance 2. Multifactorial gait disorder 3. Urinary tract infection associated with indwelling urethral catheter Qualifiers Encounter type: initial encounter Qualified Codes: T83.511A - Infection and inflammatory reaction due to indwelling urethral catheter, initial encounter; N39.0 - Urinary tract infection, site not specified Core Measures/Miscellaneous Acute Coronary Syndrome ACS Diagnosis: No Cerebrovascular Accident CVA/TIA Diagnosis: No Congestive Heart Failure CHF Diagnosis: No Venous Thromboembolism VTE Risk Factors: Acute medical illness, Age > 40 No Mech VTE prophylaxis d/t: No contraindications No VTE Pharm Prophylaxis d/t: No contraindications VTE Diagnosis: No VTE Type: NONE VTE Confirmed by (Test): NONE Severe Sepsis Severe Sepsis Present: No Septic Shock Septic Shock Present: No Miscellaneous Documentation Attending Case Discussed With: DANIEL OSORIO MD Primary Care Physician: DANIEL OSORIO MD Level of Patient Care: General Medicine ADILSON GARCIA 07/29/16 0019: Core Measures/Miscellaneous Acute Coronary Syndrome ACS Diagnosis: No Cerebrovascular Accident CVA/TIA Diagnosis: No Congestive Heart Failure CHF Diagnosis: No Venous Thromboembolism VTE Risk Factors: Acute medical illness, Age > 40 No Mech VTE prophylaxis d/t: No contraindications No VTE Pharm Prophylaxis d/t: No contraindications VTE Diagnosis: No VTE Type: NONE VTE Confirmed by (Test): NONE Septic Shock Septic Shock Present: No Miscellaneous Documentation Attending Case Discussed With: DANIEL OSORIO MD Primary Care Physician: DANIEL OSORIO MD 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 This gentleman has complicated past medical history significant for with history of hypertension, essential thrombocythemia, hyperlipidemi, non-ST elevation myocardial infarction (angioplasty/stent in the past), inferior wall MN status post cardiac cath in the [facility], oral cancer (s/p resection and radiation in his 50s with residual right ear deafness), right sided carotid endarterectomy, GI bleeding and hospital May 2016. Of note, in reviewing patient's urine culture history he grew Citrobacter, Morganella, providentia, Pseudomonas aeruginosa, Staphylococcus aureus and VRE. Extensive workup in the emergency room including hip x-ray, head CT, chest x-ray were all negative. Patient EKG was unremarkable. Patient's vital signs remained stable with the latest of them latest one vital signs: 98/68/16/156/90/ 95%. Patient denies any chest pain, short of breath, palpitation, short of breath, headache, new onset weakness and numbness. Patient has been living alone for the past few days since his has been hospitalized, ambulating independently. Reports poor oral intake for the past few days. Labs: Leukocytosis of 11.3 no band, hemoglobin 10.8, hematocrit 32.5, platelets 263, sodium 137, potassium 4 honoring gap 9 BUN 24 creatinine 1.2, UA cloudy, nitrate positive, packed with WBC, moderate epithelial cell (poor sample) Urine culture is pending. Assessment 89-year-old gentleman with multiple medical problems and comorbidities was admitted for confusion and active UA. #1 active UA and confusion: Patient's vital signs are stable. He did not develop fever and it seems that the leukocytosis is a chronic issue (average about 13-14,000 wbc), urine analysis is a poor sample and is most probably contaminated or colonized because of the chronic indwelling catheter. Patient's multiple workup including head CT scan was negative for intracranial pathology. He seems to be slightly dehydrated his confusion might be related to delirium, versus CVA (ruled out). * Admit to general medical floor * Fall precaution * Watch off antibiotics however patient already received 1 dose of ceftriaxone * History of growing Citrobacter, organ the left, Staphylococcus aureus and pseudomonal and vancomycin resistant enterococcus in his urine * If patient spikes fever might need treatment with meropenem; in that case please consult infectious disease service * Follow urine culture results * Avoid hypnotic and narcotics avoid benzodiazepine avoids restrain * Encourage for increased by mouth intake * Repeat labs in the a.m. * PT eval in the a.m. #2 hypertension continue amlodipine 5 mg by mouth daily #3 history of coronary artery disease-continue aspirin 81 mg by mouth daily; atorvastatin 80 mg by mouth daily; metoprolol 50 mg by mouth daily #4 BPH Flomax 0.4 mg by mouth daily Full code for now please reassess the chorda status in the a.m. DVT prophylaxis-heparin 5000 units every 8 hours subcutaneous Pain management. Tylenol 650 mg every 6 as needed, IV Tylenol for moderate pain and IV morphine 2 mg every 4 as needed for severe pain [facility] 1008: Attending MD Review Statement Attending Statement Attending MD Statement: examined this patient, discuss w/resident/PA/MENTAL HEALTH ASSOCIATE, agreed w/resident/PA/MENTAL HEALTH ASSOCIATE, reviewed EMR data (avail)
[2016-07-29 00:40] VITALS: BP 154/88
[2016-07-29 06:56] VITALS: BP 150/72
--- NOTE | 2016-07-29 07:17 | PN- Housestaff ---
Subjective Follow-up For: DELIRIUM SUSPECTED UTI Subjective: I saw and examined the patient today morning he is doing much better, Review of Systems Constitutional: Reports: see HPI. Objective Last 24 Hrs of Vital Signs/I&O Vital Signs Date Time Temp Pulse Resp B/P B/P Pulse O2 O2 Flow FiO2 Mean Ox Delivery Rate 07/29 0656 98.1 61 18 150/72 93 Room Air 07/29 0320 64 162/84 07/29 0040 97.9 67 18 154/88 93 Room Air 07/28 2358 98.0 68 16 156/90 95 Room Air 07/28 2249 98.3 66 18 144/86 94 Room Air 07/29 2015 98.2 63 18 125/76 94 Room Air Room Air Intake & Output 07/29 0800 07/29 0000 07/28 1600 Intake Total Output Total 750 Balance -750 Output, Urine 750 Patient 74.843 kg Weight Weight Reported by Patient Measurement Method Physical Exam General Appearance: Alert, Oriented X3, Cooperative, No Acute Distress Skin: No Rashes HEENT: Atraumatic, PERRLA Neck: Supple Cardiovascular: Normal S1, Normal S2 Lungs: Clear to Auscultation Abdomen: Normal Bowel Sounds, Soft, No Tenderness Neurological: Normal Tone, Sensation Intact Extremities: No Clubbing, No Cyanosis Vascular: Normal Pulses, Pulses Symmetrical Current Medications: Current Medications Sig/Tatyana Start time Last Medication Dose Route Stop Time Status Admin Amlodipine Besylate 5 MG DAILY 07/29 1000 AC PO Atorvastatin Calcium 80 MG 1700 07/29 1700 AC PO Ceftriaxone Sodium 0 .STK-MED ONE 07/28 2257 DC .ROUTE Ceftriaxone Sodium 1,000 MG ONCE ONE 07/28 2230 DC 07/28 IV 07/28 2231 2312 Ferrous Sulfate 325 MG TID 07/29 1000 AC PO Metoprolol Tartrate 50 MG BID 07/29 0200 AC 07/29 PO 0320 Rivastigmine 9.5 MG DAILY 07/29 1000 AC TOP Sodium Chloride 1,000 ML ONCE ONE 07/29 0100 AC 07/29 IV 07/29 1059 0202 Tamsulosin HCl 0.4 MG DAILY 07/29 1000 AC PO Assessment/Plan Assessment: Mr Sow is a 89 year old gentleman with past medical history of hypertension, essential thrombocythemia, hyperlipidemia, non-ST elevation myocardial infarction (angioplasty/stent in the past), inferior wall ID recently status post cardiac cath in the [facility], 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 The patient was also found to be confused and disoriented. At the ED a head CT, C-Xray, Hip X ray were all unremarkable. Acute Delirium - Resolved * Will admit the patient to general medicine for closer monitoring. * Discontinue antibiotics * The patient does have history of growing multiple resistant organisms in the past. * Patient does have a history of chronic Rothman which is changed every 3 weeks by [facility]. * Continue gentle hydration. * Monitor ins and outs. * Urine positive for nitrite and leukocyte esterase. Packed WBC. * Follow-up urine culture. History of fall. * CT negative for acute intracranial pathology * During the patient's last admission he was advised to follow-up with cardiology regarding the need for thinners. Hx of hypertension * Continue Norvasc 5 mg. * Continue metoprolol 50 mg. Anemia. * H&H on admission 10.8 and 32.5. * Consider Anemia Work up Iron, TIBC, B12, folate. * Continue ferrous sulfate. KWESI * BUN on admission: 24. * BUN/CR ratio: 20. Pre renal Azotemia. Likely due to dehydration.Continue NS History of BPH * Continue Flomax. DVT prophylaxis * Heparin 5000 Units Code * Full code. Problem List: 1. Dementia 2. Multifactorial gait disorder Pain Ratin Pain Location: urethra Pain Goal: Pain 4 or less Pain Plan: tylenol prn Tomorrow's Labs & Rationales: cbc to monitor white count bep to monitor lytes
--- NOTE | 2016-07-29 10:04 | Admission Certification ---
Admission Certification Certification Statement - As attending physician, I certify that at the time of - admission, based on clinical presentation, severity of - symptoms, need for further diagnostic testing and - therapeutic interventions, and risk of adverse outcomes - without in-hospital treatment, in my clinical assessment, - this patient requires an acute hospital stay for a minimum - of two nights or longer. I have also considered psychsocial - factors such as support system, advanced age, financial - issues, cognitive issues, and failed out-patient treatments, - past re-admission history, safety of patient, and lack of - compliance as applicable. Specific rationale supporting this admission is: Altered mental status, UTI
--- NOTE | 2016-07-29 10:08 | PN- Att Addend ---
Attending Addendum Attending Brief Note Patient on evaluation this morning is alert but not oriented. Appears about his baseline. General Appearance: Alert, No Acute Distress Skin: Grossly normal HEENT: PEERLA Neck: Supple, No JVD Cardiovascular: Regular Rate, Normal S1, Normal S2, No Murmurs Lungs: Clear to Auscultation, Normal Air Movement Abdomen: Normal Bowel Sounds, Soft, No Tenderness Neurological: Normal Speech, Strength at 5/5 X4 Ext, Cranial Nerves 3-12 NL, Reflexes 2+ Extremities: No Clubbing, No Cyanosis, No Edema Vascular: Normal Pulses Assessment 89-year-old with history of hypertension, essential thrombocythemia, dyslipidemia, and NSTEMI, history of oral cancer, GI bleed and recurrent falls secondary to advanced dementia presenting status post fall and altered mental status. He has a mild leukocytosis with a positive UA. Otherwise he is afebrile and on evaluation appears to be about his baseline this morning. We will discuss with his to confirm his mental status and follow off antibiotics. Plan Send blood cultures Follow cultures Start antibiotics if change in mental status per family, would consider IV ceftazidime Continue home meds Fall precautions PT evaluation DVT prophylaxis Current Medications Sig/Tatyana Start time Last Medication Dose Route Stop Time Status Admin Amlodipine Besylate 5 MG DAILY 07/29 1000 AC PO Atorvastatin Calcium 80 MG 1700 07/29 1700 AC PO Ceftriaxone Sodium 0 .STK-MED ONE 07/28 2257 DC .ROUTE Ceftriaxone Sodium 1,000 MG ONCE ONE 07/28 2230 DC 07/28 IV 07/28 2231 2312 Ferrous Sulfate 325 MG TID 07/29 1000 AC PO Metoprolol Tartrate 50 MG BID 07/29 0200 AC 07/29 PO 0320 Rivastigmine 9.5 MG DAILY 07/29 1000 AC TOP Sodium Chloride 1,000 ML ONCE ONE 07/29 0100 AC 07/29 IV 07/29 1059 0202 Tamsulosin HCl 0.4 MG DAILY 07/29 1000 AC PO Zinc Oxide 1 CRYSTAL BID 07/29 1000 AC TOP Laboratory Tests 07/28 07/28 2120 2102 Chemistry Sodium (137 - 145 mmol/L) 137 Potassium (3.5 - 5.1 mmol/L) 4.0 Chloride (98 - 107 mmol/L) 103 Carbon Dioxide (22 - 30 mmol/L) 26 Anion Gap (5 - 16) 9 BUN (9 - 20 mg/dL) 24 H Creatinine (0.7 - 1.2 mg/dL) 1.2 Estimated GFR (>60 ml/min) 57 L BUN/Creatinine Ratio (7 - 25 %) 20.0 Glucose (65 - 99 mg/dL) 94 Calcium (8.4 - 10.2 mg/dL) 8.5 Total Bilirubin (0.2 - 1.3 mg/dL) 0.7 AST (17 - 59 U/L) 25 ALT (21 - 72 U/L) 37 Alkaline Phosphatase (< 127 U/L) 120 Troponin I (<0.11 ng/ml) 0.02 Total Protein (6.3 - 8.2 g/dL) 5.8 L Albumin (3.5 - 5.0 g/dL) 3.4 L Globulin (1.9 - 4.2 gm/dL) 2.4 Albumin/Globulin Ratio (1.1 - 2.2 %) 1.4 Hematology CBC w Diff NO MAN DIFF REQ WBC (4.8 - 10.8 /CUMM) 11.3 H RBC (4.70 - 6.10 /CUMM) 3.62 L Hgb (14.0 - 18.0 G/DL) 10.8 L Hct (42 - 52 %) 32.5 L MCV (80.0 - 94.0 FL) 89.8 MCH (27.0 - 31.0 PG) 29.8 RDW (11.5 - 14.5 %) 18.9 H Plt Count (130 - 400 /CUMM) 263 MPV (7.4 - 10.4 FL) 8.0 Gran % (42.2 - 75.2 %) 74.7 Lymphocytes % (20.5 - 51.1 %) 15.3 L Monocytes % (1.7 - 9.3 %) 3.2 Eosinophils % (0 - 5 %) 4.4 Basophils % (0.0 - 2.0 %) 2.4 H Absolute Granulocytes (1.4 - 6.5 /CUMM) 8.4 H Absolute Lymphocytes (1.2 - 3.4 /CUMM) 1.7 Absolute Monocytes (0.10 - 0.60 /CUMM) 0.4 Absolute Eosinophils (0.0 - 0.7 /CUMM) 0.5 Absolute Basophils (0.0 - 0.2 /CUMM) 0.3 PUBS MCHC (33.0 - 37.0 G/DL) 33.1 Urines Urinalysis LIGHT H Urine Color (YEL,AMB,STR) YEL Urine Clarity (CLEAR) CLDY H Urine pH (5.0 - 8.0) 6.5 Ur Specific [place] (1.001 - 1.035) 1.020 Urine Protein (NEG,<30 MG/DL) 100 H Urine Ketones (NEG) NEG Urine Nitrite (NEG) POS H Urine Bilirubin (NEG) NEG Urine Urobilinogen (0.1 - 1.0 EU/dl) 0.2 Ur Leukocyte Esterase (NEG) LARGE H Ur Microscopic SEDIMENT EXAMINED Urine RBC (0 - 5 /HPF) 1-3 Urine WBC (0 - 2 /HPF) PACKD H Ur Epithelial Cells (NONE,FEW) MOD H Urine Bacteria (NEG/NONE) PACKD H Urine Mucus (FEW,NONE) MOD H Urine Hemoglobin (NEG) SMALL H Urine Glucose (N MG/DL) NEG Vital Signs Date Time Temp Pulse Resp B/P B/P Pulse O2 O2 Flow FiO2 Mean Ox Delivery Rate 07/29 0656 98.1 61 18 150/72 93 Room Air 07/29 0320 64 162/84 07/29 0040 97.9 67 18 154/88 93 Room Air 07/28 2358 98.0 68 16 156/90 95 Room Air 07/28 2249 98.3 66 18 144/86 94 Room Air 07/29 2015 98.2 63 18 125/76 94 Room Air Room Air
[2016-07-29 14:11] VITALS: BP 162/100
[2016-07-29 14:45] VITALS: BP 132/70
[2016-07-29 22:12] VITALS: BP 142/72
[2016-07-30 06:19] VITALS: BP 140/88
--- NOTE | 2016-07-30 07:07 | PN- Housestaff ---
Subjective Follow-up For: Delirium Subjective: I saw and examined the patient today morning he is lying in the chair in no distress. Denies any fevers, chills, dysuria. No overnight events. Review of Systems Constitutional: Reports: see HPI. Comments: ROS negative except the above. Objective Last 24 Hrs of Vital Signs/I&O Vital Signs Date Time Temp Pulse Resp B/P B/P Pulse O2 O2 Flow FiO2 Mean Ox Delivery Rate 07/30 0619 98.2 66 18 140/88 93 Room Air 07/29 2212 98.0 68 18 142/72 94 07/29 2126 68 142/72 07/29 1650 132/70 07/29 1445 132/70 07/29 1411 97.9 69 18 162/100 91 Room Air 07/29 1105 61 150/72 07/29 1105 61 150/72 07/29 1104 61 150/72 Intake & Output 07/30 0800 07/30 0000 07/29 1600 Intake Total 240 Output Total 400 400 900 Balance -400 -160 -900 Intake, Oral 240 Number 1 Bowel Movements Output, Urine 400 400 900 Physical Exam General Appearance: Alert, Oriented X3, Cooperative Skin: No Rashes HEENT: Atraumatic, PERRLA, EOMI Neck: Supple Cardiovascular: Normal S1, Normal S2 Lungs: Clear to Auscultation, Normal Air Movement Abdomen: Normal Bowel Sounds, Soft, No Tenderness Neurological: Strength at 5/5 X4 Ext, Normal Tone, Sensation Intact, Cranial Nerves 3-12 NL Extremities: No Clubbing, No Cyanosis Vascular: Normal Pulses, Pulses Symmetrical Current Medications: Current Medications Sig/Tatyana Start time Last Medication Dose Route Stop Time Status Admin Amlodipine Besylate 5 MG DAILY 07/29 1000 AC 07/30 PO 0906 Atorvastatin Calcium 80 MG 1700 07/29 1700 AC 07/30 PO 1631 Ferrous Sulfate 325 MG TID 07/29 1000 AC 07/30 PO 2135 Heparin Sodium 5,000 UNIT Q8 07/29 1515 AC 07/30 (Porcine) SC 2135 Metoprolol Tartrate 50 MG BID 07/29 0200 AC 07/30 PO 2136 Rivastigmine 9.5 MG DAILY 07/29 1000 AC 07/29 TOP 1106 Tamsulosin HCl 0.4 MG DAILY 07/29 1000 AC 07/30 PO 0905 Zinc Oxide 1 CRYSTAL BID 07/29 1000 AC 07/30 TOP 2136 Assessment/Plan Assessment: Patient is a 89 year old gentleman with past medical history of hypertension, essential thrombocythemia, hyperlipidemia, NSTEMI (angioplasty/stent in the past ), inferior wall [place] recently status post cardiac cath in the [facility] , 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 The patient was also found to be confused and disoriented. At the ED a head CT, C-Xray, Hip X ray were all unremarkable. Acute Delirium - Resolved * Will admit the patient to general medicine for closer monitoring. * Discontinue antibiotics * Spoke with today - no signs of urinay infection at home, concerned about gait instability and recurrent falls. History of fall. * CT negative for acute intracranial pathology Hx of hypertension * Continue Norvasc 5 mg. * Continue metoprolol 50 mg. Anemia. * H&H on admission 10.8 and 32.5. * Consider Anemia Work up Iron, TIBC, B12, folate. * Continue ferrous sulfate. * was on analagrelide at home - discontinued later. KWESI * BUN on admission: 24. * BUN/CR ratio: 20. Pre renal Azotemia. Likely due to dehydration.Continue NS History of BPH * Continue Flomax. DVT prophylaxis * Heparin 5000 Units Code * Full code. Problem List: 1. Multifactorial gait disorder 2. Dementia Pain Ratin Pain Location: n/a Pain Goal: Pain 4 or less Pain Plan: tylenol prn Tomorrow's Labs & Rationales: none
--- NOTE | 2016-07-30 09:27 | PN- Att Addend ---
Attending Addendum Attending Brief Note Patient on evaluation this morning is alert but not oriented. Appears about his baseline. General Appearance: Alert, No Acute Distress Skin: Grossly normal HEENT: PEERLA Neck: Supple, No JVD Cardiovascular: Regular Rate, Normal S1, Normal S2, No Murmurs Lungs: Clear to Auscultation, Normal Air Movement Abdomen: Normal Bowel Sounds, Soft, No Tenderness Neurological: Normal Speech, Strength at 5/5 X4 Ext, Cranial Nerves 3-12 NL, Reflexes 2+ Extremities: No Clubbing, No Cyanosis, No Edema Vascular: Normal Pulses Assessment 89-year-old with history of hypertension, essential thrombocythemia, dyslipidemia, and NSTEMI, history of oral cancer, GI bleed and recurrent falls secondary to advanced dementia presenting status post fall and altered mental status. He has a mild leukocytosis with a positive UA. Otherwise he is afebrile and on evaluation appears to be about his baseline this morning. Will follow off abx and plan discharge. Plan Continue home meds Fall precautions PT evaluation DVT prophylaxis Current Medications Sig/Tatyana Start time Last Medication Dose Route Stop Time Status Admin Amlodipine Besylate 5 MG ONCE ONE 07/29 1415 DC PO 07/29 1416 Amlodipine Besylate 5 MG DAILY 07/29 1000 AC 07/30 PO 0906 Atorvastatin Calcium 80 MG 1700 07/29 1700 AC 07/29 PO 1649 Ferrous Sulfate 325 MG TID 07/29 1000 AC 07/30 PO 0905 Heparin Sodium 5,000 UNIT Q8 07/29 1515 AC 07/30 (Porcine) SC 0542 Metoprolol Tartrate 50 MG BID 07/29 0200 AC 07/30 PO 0906 Patient Medication 1 ED .STK-MED ONE 07/29 1332 DC Teaching ED 07/29 1333 Rivastigmine 9.5 MG DAILY 07/29 1000 AC 07/29 TOP 1106 Sodium Chloride 1,000 ML ONCE ONE 07/29 0100 DC 07/29 IV 07/29 1059 0202 Tamsulosin HCl 0.4 MG DAILY 07/29 1000 AC 07/30 PO 0905 Zinc Oxide 1 CRYSTAL BID 07/29 1000 AC 07/30 TOP 0905 Vital Signs Date Time Temp Pulse Resp B/P B/P Pulse O2 O2 Flow FiO2 Mean Ox Delivery Rate 07/30 0906 66 122/67 07/30 0906 66 122/67 07/30 0905 68.0 122/67 07/30 0619 98.2 66 18 140/88 93 Room Air 07/29 2212 98.0 68 18 142/72 94 07/29 2126 68 142/72 07/29 1650 132/70 07/29 1445 132/70 07/29 1411 97.9 69 18 162/100 91 Room Air 07/29 1105 61 150/72 07/29 1105 61 150/72 07/29 1104 61 150/72
--- NOTE | 2016-07-30 09:34 | Patient Discharge Instructions ---
Discharge Instructions General Discharge Information You were seen/treated for: Acute altered mentation Special Instructions: Please follow up with PCP(Dr. Dickey) in a week Please follow up with urology regarding your catheter. Diet Continue normal diet: Yes Acute Coronary Syndrome Inclusion Criteria At DC or during hospital stay patient has or had the following: ACS DIAGNOSIS No Discharge Core Measures Meds if any: Prescribed or Continued at Discharge Meds if any: NOT Prescribed or Continued at Discharge Congestive Heart Failure Inclusion Criteria At DC or during hospital stay patient has or had the following: CHF DIAGNOSIS No Discharge Core Measures Meds if any: Prescribed or Continued at Discharge Meds if any: NOT Prescribed or Continued at Discharge Cerebrovascular accident Inclusion Criteria At DC or during hospital stay patient has or had the following: CVA/TIA Diagnosis No Discharge Core Measures Meds if any: Prescribed or Continued at Discharge Meds if any: NOT Prescribed or Continued at Discharge Venous thromboembolism Inclusion Criteria VTE Diagnosis No VTE Type NONE VTE Confirmed by (Test) NONE Discharge Core Measures - Per Current guidelines, there needs to be overlap - treatment for the first 5 days of Warfarin therapy. - If discharged on Warfarin prior to 5 days of - overlap therapy, the patient will need to be - assessed for post discharge needs including - *Post discharge parental anticoagulation - *Warfarin and/or parental anticoagulation education - *Follow up date to check INR post discharge At least 5 days overlap therapy as Inpatient No Meds if any: Prescribed or Continued at Discharge Note: Overlap Therapy is Warfarin and Anticoagulant Meds if any: NOT Prescribed or Continued at Discharge
[2016-07-30 14:36] VITALS: BP 122/78
[2016-07-30 23:06] VITALS: BP 164/84
[2016-07-31 07:42] VITALS: BP 160/90
--- NOTE | 2016-07-31 08:28 | PN- Housestaff ---
Subjective Follow-up For: Delirium Recurrent falls Subjective: I saw and examined the patient today morning He is doing much better, no significant overnight events. Review of Systems Constitutional: Reports: see HPI. Objective Last 24 Hrs of Vital Signs/I&O Vital Signs Date Time Temp Pulse Resp B/P B/P Pulse O2 O2 Flow FiO2 Mean Ox Delivery Rate 07/31 0742 98.1 69 18 160/90 94 Room Air 07/30 2306 97.9 68 20 164/84 95 Room Air 07/30 2136 68 164/84 07/30 1436 97.7 65 20 122/78 94 Room Air 07/30 1200 Room Air Room Air 07/30 0906 66 122/67 07/30 0906 66 122/67 07/30 0905 68.0 Intake & Output 07/31 1600 07/31 0800 07/31 0000 Intake Total 240 700 Output Total 500 300 Balance -260 400 Intake, Oral 240 700 Output, Urine 500 300 Physical Exam General Appearance: Alert, Cooperative Skin: No Rashes, No Breakdown HEENT: Atraumatic, PERRLA Neck: Supple Cardiovascular: Normal S1, Normal S2 Lungs: Clear to Auscultation, Normal Air Movement Abdomen: Normal Bowel Sounds, Soft, No Tenderness Neurological: Strength at 5/5 X4 Ext, Normal Tone, Sensation Intact Extremities: No Clubbing, No Cyanosis, No Edema Current Medications: Current Medications Sig/Tatyana Start time Last Medication Dose Route Stop Time Status Admin Amlodipine Besylate 5 MG DAILY 07/29 1000 DCD 07/31 PO 1048 Atorvastatin Calcium 80 MG 1700 07/29 1700 DCD 07/30 PO 1631 Ferrous Sulfate 325 MG TID 07/29 1000 DCD 07/31 PO 1048 Heparin Sodium 5,000 UNIT Q8 07/29 1515 DCD 07/31 (Porcine) SC 0512 Metoprolol Tartrate 50 MG BID 07/29 0200 DCD 07/31 PO 1048 Patient Medication 1 ED .STK-MED ONE 07/31 1359 DC Teaching ED 07/31 1400 Rivastigmine 9.5 MG DAILY 07/29 1000 DCD 07/29 TOP 1106 Tamsulosin HCl 0.4 MG DAILY 07/29 1000 DCD 07/31 PO 1048 Zinc Oxide 1 CRYSTAL BID 07/29 1000 DCD 07/31 TOP 1049 Assessment/Plan Assessment: Patient is a 89 year old gentleman with past medical history of hypertension, essential thrombocythemia, hyperlipidemia, NSTEMI (angioplasty/stent in the past ), inferior wall [place] recently status post cardiac cath in the [facility] , 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 The patient was also found to be confused and disoriented. At the ED a head CT, C-Xray, Hip X ray were all unremarkable. Acute Delirium - Resolved * Discontinue antibiotics * Spoke with today - no signs of urinay infection at home, concerned about gait instability and recurrent falls. * Going to STR today History of fall. * CT negative for acute intracranial pathology * STR for physical therapy. Hx of hypertension * Continue Norvasc 5 mg. * Continue metoprolol 50 mg. Anemia. * H&H on admission 10.8 and 32.5. * Consider Anemia Work up Iron, TIBC, B12, folate. * Continue ferrous sulfate. * was on analagrelide at home - discontinued later. History of BPH * Continue Flomax and dulasteride DVT prophylaxis * Heparin 5000 Units Code * Full code. Problem List: 1. Multifactorial gait disorder 2. Dementia Pain Ratin Pain Location: n/a Pain Goal: Pain 4 or less Pain Plan: Tylenol prn Tomorrow's Labs & Rationales: none
[2016-07-31] MEDS ORDERED: AGRYLIN0.5 MG PO (08:31)
--- NOTE | 2016-07-31 09:29 | PN- Att Addend ---
Attending Addendum Attending Brief Note Patient on evaluation this morning is alert but not oriented. Appears about his baseline. General Appearance: Alert, No Acute Distress Skin: Grossly normal HEENT: PEERLA Neck: Supple, No JVD Cardiovascular: Regular Rate, Normal S1, Normal S2, No Murmurs Lungs: Clear to Auscultation, Normal Air Movement Abdomen: Normal Bowel Sounds, Soft, No Tenderness Neurological: Normal Speech, Strength at 5/5 X4 Ext, Cranial Nerves 3-12 NL, Reflexes 2+ Extremities: No Clubbing, No Cyanosis, No Edema Vascular: Normal Pulses Assessment 89-year-old with history of hypertension, essential thrombocythemia, dyslipidemia, and NSTEMI, history of oral cancer, GI bleed and recurrent falls secondary to advanced dementia presenting status post fall and altered mental status. He has a mild leukocytosis with a positive UA. Otherwise he is afebrile and on evaluation appears to be about his baseline this morning. Will follow off abx and plan discharge to short-term rehabilitation. Plan Continue home meds Fall precautions PT evaluation DVT prophylaxis
--- NOTE | 2016-07-31 11:39 | Discharge Summary ---
Visit Information Visit Dates Admission Date: 07/28/16 Discharge Date: 07/31/16 Hospital Course Course Attending Physician: DANIEL DICKEY MD Primary Care Physician: DANIEL DICKEY MD Hospital Course: Patient is a 89 year old gentleman with past medical history of hypertension, essential thrombocythemia, hyperlipidemia, NSTEMI (angioplasty/stent in the past ), inferior wall [place] recently status post cardiac cath in the [facility] , 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 The patient was also found to be confused and disoriented. At the ED Vitals are fairly stable, head CT, C-Xray, Hip X ray were all unremarkable. Deconditioning and recurrent falls Apparently he had 3 falls on the day of admission, (H/O gait instability) is very concerned, came for further evaluation. No injuries evident on imaging, ruled out intracranial pathology. Appears physical deconditioning. So discharging to STR for physical therapy and improve functional status. Swallow evaluation - passed for chopped and thin liquids Acute Delirium Apparently patient is confused in the ER and there is concern for UTI. As patient had been growing bugs chronically, Although he was growing gram negative rods, He is completely asymptomatic without a white count. Mental status was better from the very next day of hospitalization. He is at his baseline now, occasionally delirious and confused. He will get back with simple reorientation. Chronic and stable conditions Anemia with essential thrombocytopenia: Anagrelide 0.5mg BID, ferrous sulphate BID BPH : Flomax and dutasteride are continued CAD: Aspirin 81mg, Atorvastatin 80mg, metoprolol 50mg BID Chronic indwelling stover catheter: Changed Q 3 weeks - Due on 08/04/16 (last changed on 07/14/16). Dementia: on rivastigmine 9.5mg daily HTN: Amlodipine 5mg daily DVT prophylaxis * Heparin 5000 Units Code * Full code. Complications: NONE Allergies: Coded Allergies: NO KNOWN ALLERGIES (02/07/16) Significant Procedures: NONE Pertinent Lab Results: as above Disposition Summary Disposition Principal Diagnosis: Delirium Recurrent falls - probably deconditioning Additional Diagnosis: HTN Dementia Essential thrombocytopenia BPH Discharge Disposition: SNF Discharge Instructions General Discharge Information Code Status: Full Code Patient's Diet: Chopped and thin Patient's Activity: Activity as tolerated Follow-Up Instructions/Appts: Please follow up with PCP(Dr. Dickey) in a week Please follow up with urology regarding your catheter. Medications at Discharge Discharge Medications: Continue taking these medications: Amlodipine Besylate (Norvasc) 5 MG TABLET 1 Tablet ORAL DAILY Comments: NOT GIVEN WHILE IN HOSPITAL Metoprolol Tartrate (Lopressor) 50 MG TABLET 1 Tablet ORAL TWICE DAILY Comments: NOT GIVEN WHILE IN HOSPITAL Rivastigmine (Exelon) 9.5 MG/Patch PAT 1 Patch On the skin DAILY Comments: Last Taken: 05/08/16 Time: 10AM Ferrous Sulfate (Ferrous Sulfate) 325 MG (65 MG IRON) TABLET 1 Tablet ORAL THREE TIMES DAILY Comments: NOT GIVEN WHILE IN HOSPTIAL Dutasteride (Avodart) 0.5 MG CAPSULE 1 Capsule ORAL DAILY Comments: NOT GIVEN WHILE IN HOSPITAL Tamsulosin HCl (Tamsulosin HCl) 0.4 MG CAP.ER.24H 1 Capsule ORAL DAILY Comments: Last Taken: 05/08/16 Time: 10AM Atorvastatin Calcium (Atorvastatin Calcium) 80 MG TABLET 1 Tablet ORAL DAILY Qty = 90 Comments: Last Taken: 05/07/16 Time: 5PM Anagrelide Hydrochloride (Agrylin) 0.5 MG CAPSULE 0.5 Milligram ORAL TWICE DAILY Copies To: DANIEL DICKEY MD Attending MD Review Statement Documenting Attending: DANIEL DICKEY MD
[2016-07-31 12:40] VITALS: BP 160/90
== END 2016-07-31 13:43 | DRG 884 ==
LOC: ERH 20:14 → ERHI 22:17 → 2NB 22:17 → ENRESERV 23:42 → 2NB 07-29 00:10 → ENPENDDIS 07-31 12:06 → 2NB 07-31 13:43
PROVIDERS: Emergency Medicine; ADMIT Internal Medicine
DX: F03.90 Unspecified dementia, unspecified severity, without behavioral disturbance, psychotic disturbance, mood disturbance, and anxiety (principal); F05 Delirium due to known physiological condition; D64.9 Anemia, unspecified; I10 Essential (primary) hypertension; E78.5 Hyperlipidemia, unspecified; I25.2 Old myocardial infarction; D47.3 Essential (hemorrhagic) thrombocythemia; I25.10 Atherosclerotic heart disease of native coronary artery without angina pectoris; N40.0 Benign prostatic hyperplasia without lower urinary tract symptoms; Z85.819 Personal history of malignant neoplasm of unspecified site of lip, oral cavity, and pharynx; R26.89 Other abnormalities of gait and mobility
CPT/HCPCS: 2NBP; ERO; 81001; 82436; 87086; 93005; 93010; 97116-GO; 97161-GP; 97530-GO; J0696; J1644